=== PATIENT | male | born 1955 | race Caucasian/White ===

== ENCOUNTER → 2016-09-16 | Outpatient (REF) | payer OTHER | LOC: M LABDRAWP 11:24 | PROVIDERS: ATTEND Internal Medicine Cardiovascular Disease | DX: E78.00 Pure hypercholesterolemia, unspecified (principal); I25.10 Atherosclerotic heart disease of native coronary artery without angina pectoris ==

== ENCOUNTER → 2016-10-09 | Day surgery (SDC) | payer OTHER ==
[~2016-10-09] VITALS: Ht 182.9 cm; Wt 170.1 kg
[~2016-10-09] MED LIST: ASPI81TA85 PO; ATOR1TAB18 PO; CARV6.25 PO; CARVedilol 6.25 MG TAB As Ordered ONE; CARVedilol 6.25 MG TAB PO ONE; LIDOCAINE 2% INJ 100 MG/5 ML SDV (FOR ANES.) As Ordered ONE; LR 1,000 ML IV SCH; MEPERIDINE INJ 25 MG/ML VIAL (J2175) IV PRN; METOCLOPRAMIDE INJ 10MG/2ML VIAL (J2765) As Ordered ONE; METOCLOPRAMIDE INJ 10MG/2ML VIAL (J2765) IV PRN; MIDAZOLAM INJ 2 MG/2 ML VIAL (J2250) As Ordered ONE; MORPHINE 4 MG/ML 1ML SYRINGE IV PRN; NORCO, ANEXSIA 5/325MG TABLET (HYDROcodone/ACETAMINOPHEN) PO PRN; ONDANSETRON 4MG/2ML VIAL (J2405) IV PRN; PERCOCET 5MG/325MG TAB PO PRN; PROPOFOL 200 MG/20 ML VIAL As Ordered ONE; ROCURONIUM BROMIDE 50 MG/5 ML VIAL As Ordered ONE; ROPIvacaine 0.5% 30 ML INJECTION (J2795) As Ordered ONE; ROPIvacaine 0.5% 30 ML INJECTION (J2795) XX ONE; SUGAMMADEX SODIUM 500 MG/5 ML VIAL (BRIDION) As Ordered ONE; TYLE500T78 PO; ZETI10TA2 PO; dexameTHASONE 4 MG/ML 1ML VIAL (J1100) As Ordered ONE; fentaNYL 100 MCG/2 ML INJECTION (J3010) IV PRN; fentaNYL 250 MCG/5 ML INJECTION (J3010) As Ordered ONE
[2016-10-09] MEDS: LR 1,000 ML IV SCH ×2 (09:10→09:12)
[2016-10-09 15:15] VITALS: BP 141/74
--- NOTE | 2016-10-09 19:46 | RO ---
DATE OF PROCEDURE: 10/09/2016 PREPROCEDURE DIAGNOSIS: Right knee medial and lateral meniscus tears with degenerative arthritis. POSTPROCEDURE DIAGNOSIS: Right knee medial and lateral meniscus tears with degenerative arthritis. PROCEDURE: 1. Right knee partial medial meniscectomy. 2. Right knee partial lateral meniscectomy. SURGEON: Dr. Misael Bowers MODELING AGENCY MANAGER: ANESTHESIA: General endotracheal anesthetic. COMPLICATIONS: None. SPECIMENS: None. FINDINGS: She had significant unstable tearing especially of the lateral meniscus laterally and anteriorly. In addition, there was significant degenerative tearing of the medial meniscus. There was chondromalacia in the medial compartment and the lateral compartment, grade 2/grade 3, anterior cruciate ligament (ACL) and posterior cruciate ligament (PCL) were intact. There was a lot of fibrotic tissue in the anterior interval and the infrapatellar plica. DESCRIPTION OF PROCEDURE: After antibiotics were given intravenously preoperatively and successful general endotracheal tube anesthetic had been established, tourniquet was placed on the right upper thigh and not inflated. The right lower extremity was prepped and draped in the usual sterile fashion, the leg elevated and after appropriate time out, the tourniquet was inflated and insufflation portal was established superomedially, scope was introduced anterolaterally, working portal anteromedial. Noteworthy that exam under anesthesia revealed marked popping and snapping sensation as I brought the knee into extension. I first inspected the medial compartment. There was a significant degenerative tear with a parrot-beak component along the medial aspect of the medial meniscus and the posterior horn of the medial meniscus appeared essentially absent or it was significantly degenerative and just some frayed tissue remained. I smoothed off that portion of the posterior horn of the medial meniscus and then debrided the parrot-beak type unstable portion of the torn medial meniscus medially. Photographs taken before and afterward. I then placed him in the figure 4 position and explored the lateral compartment. There was a significant amount of tearing of especially the anterior horn of the lateral meniscus, and I debrided that with a 4.0 shaver back to good smooth rim. And then posterior and laterally, there was basically an infolded bucket handle type tear of the lateral meniscus that once I teased it out with a shaver, it was obviously grossly unstable and flapping into the joint, consistent with having symptomatology in the lateral joint line. This was released with a basket punch and the 4.0 shaver back to good smooth rim, photographs taken before and afterward. I then debrided the fibrotic tissue in the front of the ACL and the infrapatellar plica. Finding no other treatable pathology, I copiously irrigated out the joint and then instilled ropivacaine, covered the wounds with Adaptic dry sterile bulky dressing, then the tourniquet was released and he was awakened from general endotracheal tube anesthesia after having tolerated the procedure well, transferred to the recovery room in stable condition. There were no intraoperative complications.
== END | disposition home or self-care (01) ==
LOC: M SDC 08:19
PROVIDERS: ATTEND Orthopaedic Surgery
DX: S83.241A Other tear of medial meniscus, current injury, right knee, initial encounter (principal); S83.211A Bucket-handle tear of medial meniscus, current injury, right knee, initial encounter; M17.0 Bilateral primary osteoarthritis of knee; I25.10 Atherosclerotic heart disease of native coronary artery without angina pectoris; E66.01 Morbid (severe) obesity due to excess calories; E78.00 Pure hypercholesterolemia, unspecified; I25.2 Old myocardial infarction; M54.9 Dorsalgia, unspecified; I10 Essential (primary) hypertension; G89.29 Other chronic pain; M19.031 Primary osteoarthritis, right wrist; M19.032 Primary osteoarthritis, left wrist; Z79.899 Other long term (current) drug therapy; Z79.82 Long term (current) use of aspirin
CPT/HCPCS: 29880; J0690; J1100; J2250; J2765; J2795; J3010

== ENCOUNTER 2016-11-09 08:10 | Emergency (ER) | payer OTHER ==
[~2016-11-09] VITALS: Ht 182.9 cm; Wt 181.4 kg
[~2016-11-09 08:10] MED LIST changes: -CARVedilol 6.25 MG TAB As Ordered ONE; -CARVedilol 6.25 MG TAB PO ONE; -LIDOCAINE 2% INJ 100 MG/5 ML SDV (FOR ANES.) As Ordered ONE; -LR 1,000 ML IV SCH; -MEPERIDINE INJ 25 MG/ML VIAL (J2175) IV PRN; -METOCLOPRAMIDE INJ 10MG/2ML VIAL (J2765) As Ordered ONE; -METOCLOPRAMIDE INJ 10MG/2ML VIAL (J2765) IV PRN; -MIDAZOLAM INJ 2 MG/2 ML VIAL (J2250) As Ordered ONE; -MORPHINE 4 MG/ML 1ML SYRINGE IV PRN; -NORCO, ANEXSIA 5/325MG TABLET (HYDROcodone/ACETAMINOPHEN) PO PRN; -ONDANSETRON 4MG/2ML VIAL (J2405) IV PRN; -PERCOCET 5MG/325MG TAB PO PRN; -PROPOFOL 200 MG/20 ML VIAL As Ordered ONE; -ROCURONIUM BROMIDE 50 MG/5 ML VIAL As Ordered ONE; -ROPIvacaine 0.5% 30 ML INJECTION (J2795) As Ordered ONE; -ROPIvacaine 0.5% 30 ML INJECTION (J2795) XX ONE; -SUGAMMADEX SODIUM 500 MG/5 ML VIAL (BRIDION) As Ordered ONE; -dexameTHASONE 4 MG/ML 1ML VIAL (J1100) As Ordered ONE; -fentaNYL 100 MCG/2 ML INJECTION (J3010) IV PRN; -fentaNYL 250 MCG/5 ML INJECTION (J3010) As Ordered ONE
--- NOTE | 2016-11-09 10:06 | REP ---
CT HEAD WITHOUT CONTRAST: HISTORY: Dizziness. A small area of decreased attenuation is present in the left cerebellum. This represents an old lacunar infarction. There is no intraparenchymal hemorrhage, mass or midline shift. The ventricular system and cortical sulci are dilated consistent with minimal volume loss. There is no extracerebral collection. The visualized sinuses are clear. IMPRESSION: 1. Old left cerebellar lacunar infarction. 2. Minimal volume loss. Signed by Percy Hdz MD 11/09/2016 10:19 A
[2016-11-09] MEDS ORDERED: ONDANSETRON 4MG/2ML VIAL (J2405) IV ONE (10:15)
[2016-11-09] MEDS ORDERED: MECLIZINE 25 MG TABLET PO ONE (10:15)
[2016-11-09 10:41] LABS: BASO % 0.7 % (0.0-1.0); EOS # 0.1 K/mm3 (0.0-0.50); EOS % 1.7 % (0.0-3.0); LARGE UNSTAINED CELL # 0.2 K/mm3 (0.0-0.4); LARGE UNSTAINED CELL % 2.9 % (0.0-4.0); LYMPH # 1.2 K/mm3 (1.5-4.5); LYMPH % 17.3 % (24.0-44.0); MEAN CORPUSCULAR HGB CONC 33.9 g/dl (32.0-36.5); MEAN CORPUSCULAR VOLUME 91.6 fl (80.0-96.0); MONO # 0.4 K/mm3 (0.0-0.8); MONO % 6.2 % (0.0-5.0); NEUTROPHILS % 71.3 % (36.0-66.0); PLATELET COUNT, AUTOMATED 197 k/mm3 (150-450)
--- NOTE | 2016-11-09 10:57 | REP ---
Chest x-ray: Three views. History: Cough, left lower anterior rib pain. Comparison chest x-ray December 14, 2011. Findings: EKG monitoring electrodes and oxygen delivery tubing overlie the chest. Heart is not enlarged. Lungs are well inflated and clear. Pleural angles are sharp. Pulmonary vasculature is not increased. Impression: No active disease. Signed by French Booth MD 11/09/2016 02:29 P
[2016-11-09 11:08] LABS: ALKALINE PHOSPHATASE 67 U/L (45-117); ALT/SGPT 25 U/L (12-78); ANION GAP 7 MEQ/L (8-16); AST/SGOT 21 U/L (15-37); BILIRUBIN,DIRECT < 0.1 MG/DL (0.0-0.2); BILIRUBIN,TOTAL 0.4 MG/DL (0.2-1.0); BLOOD UREA NITROGEN 16 MG/DL (7-18); CALCIUM LEVEL 8.4 MG/DL (8.8-10.2); CARBON DIOXIDE LEVEL 29 MEQ/L (21-32); CHLORIDE LEVEL 106 MEQ/L (98-107); CREATININE FOR GFR 0.91 MG/DL (0.70-1.30); GLOMERULAR FILTRATION RATE > 60.0 (>49); GLUCOSE, FASTING 105 MG/DL (80-110); SODIUM LEVEL 142 MEQ/L (136-145); TOTAL PROTEIN 7.3 GM/DL (6.4-8.2)
[2016-11-09] MEDS ORDERED: LORazepam 2 MG/ML VIAL (J2060) IV STA (12:31)
[2016-11-09] MEDS ORDERED: NS 1,000 ML IV ONE (12:45)
[2016-11-09] MEDS ORDERED: FLON1SPR (14:44)
[2016-11-09] MEDS ORDERED: ZOFR4TAB3 PO (14:44)
[2016-11-09] MEDS ORDERED: MECL-68 PO (14:44)
--- NOTE | 2016-11-09 14:48 | REP ---
Duplex extremity venous ultrasound: Bilateral lower extremity. History: Bilateral lower extremity swelling. Question DVT. Findings: The deep veins are anechoic and fully compressible from the groin to the popliteal fossa in the right and left lower extremity. Color flow imaging is homogeneous. Spectral Doppler interrogation demonstrates intact respiratory variation in flow and normal manual augmentation of flow. There is no evidence of deep vein thrombosis. Impression: Negative bilateral lower extremity duplex venous ultrasound. No evidence of deep vein thrombosis. Signed by French Booth MD 11/09/2016 02:40 P
[2016-11-09 15:17] VITALS: BP 136/84
--- NOTE | 2016-11-09 20:41 | ECGEPIP ---
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 Order Number: [id number] Reading MD: Pedro Fontana Measurements Intervals [place] Rate: 66 P: 3 IN: 197 QRS: -52 QRSD: 99 T: 58 QT: 421 QTc: 443 Interpretive Statements SINUS RHYTHM PATTERN CONSISTENT WITH PULMONARY DISEASE LEFT ANTERIOR FASCICULAR BLOCK INFERIOR MYOCARDIAL INFARCTION, PROBABLY OLD NO PRIORS Electronically Signed On 11-09-2016 20:41:31 EST by Pedro Fontana
== END 2016-11-09 15:19 | disposition home or self-care (01) ==
LOC: M ED 09:25
DX: H81.10 Benign paroxysmal vertigo, unspecified ear (principal); J06.9 Acute upper respiratory infection, unspecified; R60.0 Localized edema; I10 Essential (primary) hypertension; Z79.899 Other long term (current) drug therapy; Z79.82 Long term (current) use of aspirin

== ENCOUNTER 2017-02-10 15:38 | Emergency (ER) | payer OTHER ==
[~2017-02-10] VITALS: Ht 182.9 cm; Wt 170.1 kg
[~2017-02-10 15:38] MED LIST changes: +FLON1SPR; +MECL-68 PO; +ZOFR4TAB3 PO
[2017-02-10] MEDS ORDERED: methylPREDNISolone INJ 125 MG/2 ML VIAL (J2930) IV ONE (16:45)
[2017-02-10] MEDS ORDERED: methylPREDNISolone INJ 125 MG/2 ML VIAL (J2930) IM ONE (17:00)
[2017-02-10] MEDS ORDERED: PRED50TA PO (17:18)
[2017-02-10] MEDS ORDERED: VALI5TAB PO (17:18)
[2017-02-10 17:29] VITALS: BP 150/67
== END 2017-02-10 18:00 | disposition home or self-care (01) ==
LOC: M ED 16:56
DX: M54.41 Lumbago with sciatica, right side (principal); I10 Essential (primary) hypertension; E78.00 Pure hypercholesterolemia, unspecified; Z79.82 Long term (current) use of aspirin; Z79.899 Other long term (current) drug therapy
CPT/HCPCS: 96372; 99282; J2930

== ENCOUNTER → 2017-11-11 | Outpatient (REF) | payer BC ==
[2017-11-11 13:41] LABS: HEMATOCRIT 46.8 % (42.0-52.0); HEMOGLOBIN 15.5 g/dl (14.0-18.0); MEAN CORPUSCULAR HEMOGLOBIN 30.8 pg (27.0-33.0); MEAN CORPUSCULAR HGB CONC 33.1 g/dl (32.0-36.5); MEAN CORPUSCULAR VOLUME 92.9 fl (80.0-96.0); PLATELET COUNT, AUTOMATED 198 10^3/uL (150-450); RED BLOOD COUNT 5.04 10^6/uL (4.30-6.10); RED CELL DISTRIBUTION WIDTH 13.2 % (11.5-14.5); WHITE BLOOD COUNT 6.5 10^3/uL (4.0-10.0)
[2017-11-11 14:17] LABS: ERYTHROCYTE SEDIMENTATION RATE 126 mm/hr (0-20)
[2017-11-11 14:30] LABS: ALBUMIN 3.3 GM/DL (3.2-5.2); ALBUMIN/GLOBULIN RATIO 0.83 (1.00-1.93); ALKALINE PHOSPHATASE 62 U/L (45-117); ALT/SGPT 30 U/L (12-78); ANION GAP 8 MEQ/L (8-16); AST/SGOT 30 U/L (7-37); BILIRUBIN,TOTAL 0.4 MG/DL (0.2-1.0); BLOOD UREA NITROGEN 17 MG/DL (7-18); CALCIUM LEVEL 8.8 MG/DL (8.8-10.2); CARBON DIOXIDE LEVEL 27 MEQ/L (21-32); CHLORIDE LEVEL 106 MEQ/L (98-107); CHOLESTEROL LEVEL 190 MG/DL (<200); CHOLESTEROL RISK RATIO 3.275 (<5); CREATININE FOR GFR 0.88 MG/DL (0.70-1.30); FREE T4 0.85 NG/DL (0.76-1.46); GLOMERULAR FILTRATION RATE > 60.0 (>49); GLUCOSE, FASTING 86 MG/DL (70-100); HDL CHOLESTEROL 58 MG/DL (>40); LDL CHOLESTEROL 110.4 MG/DL (<100); NON-HDL-C 132 MG/DL; POTASSIUM SERUM 4.2 MEQ/L (3.5-5.1); SODIUM LEVEL 141 MEQ/L (136-145); TOTAL PROTEIN 7.3 GM/DL (6.4-8.2); TRIGLYCERIDES LEVEL 108 MG/DL (<150)
== END ==
LOC: M SFHCPLAZ 10:58
DX: E78.00 Pure hypercholesterolemia, unspecified (principal); M19.071 Primary osteoarthritis, right ankle and foot; E66.01 Morbid (severe) obesity due to excess calories
CPT/HCPCS: 84443

== ENCOUNTER → 2017-11-11 | Outpatient (CLI) | payer BC | LOC: M SMT 11:24 | DX: M79.671 Pain in right foot (principal) | CPT/HCPCS: 73630 ==

== ENCOUNTER → 2017-11-30 | Outpatient (REF) | payer BC ==
[2017-11-30 16:08] LABS: C REACTIVE PROTEIN QUANTITATIV 0.66 MG/DL (0.00-0.30)
[2017-11-30 16:08] LABS: URIC ACID 5.2 MG/DL (3.5-7.2)
[2017-11-30 17:12] LABS: ERYTHROCYTE SEDIMENTATION RATE 7 mm/hr (0-20)
== END ==
LOC: M SFHCPLAZ 13:34
DX: R70.0 Elevated erythrocyte sedimentation rate (principal)
CPT/HCPCS: 84550

== ENCOUNTER → 2017-12-20 | Outpatient (CLI) | payer BC | LOC: M SLEEP 18:59 | DX: G47.33 Obstructive sleep apnea (adult) (pediatric) (principal) | CPT/HCPCS: 95810 ==

== ENCOUNTER → 2018-01-17 | Outpatient (CLI) | payer BC | LOC: M SLEEP 19:45 | DX: G47.33 Obstructive sleep apnea (adult) (pediatric) (principal) | CPT/HCPCS: 95811 ==

== ENCOUNTER 2018-03-29 15:21 | Emergency (ER) | payer BC ==
[2018-03-29 16:34] LABS: HEMATOCRIT 42.6 % (42.0-52.0); HEMOGLOBIN 14.2 g/dl (13.5-17.5); MEAN CORPUSCULAR HEMOGLOBIN 30.9 pg (27.0-33.0); MEAN CORPUSCULAR HGB CONC 33.3 g/dl (32.0-36.5); MEAN CORPUSCULAR VOLUME 92.8 fl (80.0-96.0); PLATELET COUNT, AUTOMATED 189 10^3/uL (150-450); RED BLOOD COUNT 4.59 10^6/uL (4.30-6.10); RED CELL DISTRIBUTION WIDTH 13.3 % (11.5-14.5); WHITE BLOOD COUNT 11.2 10^3/uL (4.0-10.0)
[2018-03-29] MEDS: MECLIZINE 25 MG TABLET PO (16:39)
[2018-03-29] MEDS: NS 1,000 ML IV (16:39)
[2018-03-29] MEDS: LORazepam 2 MG/ML VIAL (J2060) IV (16:39)
[2018-03-29 16:42] LABS: ANION GAP 9 MEQ/L (8-16); BLOOD UREA NITROGEN 25 MG/DL (7-18); CALCIUM LEVEL 7.9 MG/DL (8.8-10.2); CARBON DIOXIDE LEVEL 25 MEQ/L (21-32); CHLORIDE LEVEL 109 MEQ/L (98-107); CREATININE FOR GFR 0.74 MG/DL (0.70-1.30); GLOMERULAR FILTRATION RATE > 60.0 (>49); GLUCOSE, FASTING 86 MG/DL (70-100); POTASSIUM SERUM 3.6 MEQ/L (3.5-5.1); SODIUM LEVEL 143 MEQ/L (136-145)
[2018-03-29] MEDS: KETOROLAC 30 MG/ML VIAL (J1885) IV (17:45)
== END 2018-03-29 19:52 | disposition home or self-care (01) ==
LOC: M ED 15:21
DX: R42 Dizziness and giddiness (principal); I25.10 Atherosclerotic heart disease of native coronary artery without angina pectoris; E78.5 Hyperlipidemia, unspecified; G47.33 Obstructive sleep apnea (adult) (pediatric)
CPT/HCPCS: J2060

== ENCOUNTER → 2018-06-01 | Outpatient (REF) | payer BC ==
[2018-06-01 13:22] LABS: HEMATOCRIT 45.9 % (42.0-52.0); HEMOGLOBIN 15.3 g/dl (13.5-17.5); MEAN CORPUSCULAR HGB CONC 33.3 g/dl (32.0-36.5); MEAN CORPUSCULAR VOLUME 93.1 fl (80.0-96.0); PLATELET COUNT, AUTOMATED 189 10^3/uL (150-450); RED BLOOD COUNT 4.93 10^6/uL (4.30-6.10); RED CELL DISTRIBUTION WIDTH 13.2 % (11.5-14.5); WHITE BLOOD COUNT 5.9 10^3/uL (4.0-10.0)
[2018-06-01 13:57] LABS: ERYTHROCYTE SEDIMENTATION RATE 31 mm/hr (0-20)
[2018-06-01 14:56] LABS: ALBUMIN 3.5 GM/DL (3.2-5.2); ALBUMIN/GLOBULIN RATIO 0.95 (1.00-1.93); ALKALINE PHOSPHATASE 57 U/L (45-117); ALT/SGPT 25 U/L (12-78); ANION GAP 11 MEQ/L (8-16); AST/SGOT 26 U/L (7-37); BILIRUBIN,TOTAL 0.7 MG/DL (0.2-1.0); BLOOD UREA NITROGEN 18 MG/DL (7-18); CALCIUM LEVEL 8.9 MG/DL (8.8-10.2); CARBON DIOXIDE LEVEL 26 MEQ/L (21-32); CHLORIDE LEVEL 107 MEQ/L (98-107); CREATININE FOR GFR 0.82 MG/DL (0.70-1.30); FREE T4 0.87 NG/DL (0.76-1.46); GLOMERULAR FILTRATION RATE > 60.0 (>49); GLUCOSE, FASTING 88 MG/DL (70-100); SODIUM LEVEL 144 MEQ/L (136-145); TOTAL 25(OH) VITAMIN D 18.4 NG/ML (30.0-100.0); TOTAL PROTEIN 7.2 GM/DL (6.4-8.2)
== END ==
LOC: M SFHCPLAZ 11:31
DX: R53.83 Other fatigue (principal)

== ENCOUNTER → 2018-12-06 | Outpatient (REF) | payer OTHER, MEDICAID ==
[~2018-12-06] MED LIST changes: -ATOR1TAB18 PO; +ATOR80TA59 PO; +CYCL10TA PO; +PRED50TA PO; +VALI5TAB PO; -ZETI10TA2 PO; +ZETI10TA30 PO; +ZOFR4TAB14 PO; -ZOFR4TAB3 PO
[2018-12-06 14:11] LABS: ALBUMIN 3.1 GM/DL (3.2-5.2); ALT/SGPT 41 U/L (12-78); BILIRUBIN,TOTAL 0.7 MG/DL (0.2-1.0); BLOOD UREA NITROGEN 14 MG/DL (7-18); CALCIUM LEVEL 8.3 MG/DL (8.8-10.2); CARBON DIOXIDE LEVEL 29 MEQ/L (21-32); CHLORIDE LEVEL 106 MEQ/L (98-107); CHOLESTEROL LEVEL 160 MG/DL (<200); CHOLESTEROL RISK RATIO 3.265 (<5); CREATININE FOR GFR 0.87 MG/DL (0.70-1.30); GLOMERULAR FILTRATION RATE > 60.0 (>49); GLUCOSE, FASTING 93 MG/DL (70-100); HDL CHOLESTEROL 49 MG/DL (>40); LDL CHOLESTEROL 89 MG/DL (<100); NON-HDL-C 111 MG/DL; POTASSIUM SERUM 4.3 MEQ/L (3.5-5.1); SODIUM LEVEL 140 MEQ/L (136-145); TOTAL PROTEIN 6.6 GM/DL (6.4-8.2); TRIGLYCERIDES LEVEL 108 MG/DL (<150)
[2018-12-06 14:17] LABS: TOTAL 25(OH) VITAMIN D 21.3 NG/ML (30.0-100.0)
== END ==
LOC: M SFHCPLAZ 11:17
PROVIDERS: ATTEND Nurse Practitioner Family
DX: E78.00 Pure hypercholesterolemia, unspecified (principal); E55.9 Vitamin D deficiency, unspecified

== ENCOUNTER → 2019-06-09 | Outpatient (REF) | payer OTHER ==
[~2019-06-09] MED LIST changes: +ZETI10TA16 PO; -ZETI10TA30 PO
[2019-06-09 13:44] LABS: ALBUMIN 3.3 GM/DL (3.2-5.2); ALT/SGPT 28 U/L (12-78); BILIRUBIN,TOTAL 0.6 MG/DL (0.2-1.0); BLOOD UREA NITROGEN 17 MG/DL (7-18); CALCIUM LEVEL 9.2 MG/DL (8.8-10.2); CARBON DIOXIDE LEVEL 30 MEQ/L (21-32); CHLORIDE LEVEL 106 MEQ/L (98-107); CREATININE FOR GFR 0.87 MG/DL (0.70-1.30); GLOMERULAR FILTRATION RATE > 60.0 (>49); GLUCOSE, FASTING 112 MG/DL (70-100); SODIUM LEVEL 142 MEQ/L (136-145); TOTAL PROTEIN 7.2 GM/DL (6.4-8.2)
== END ==
LOC: M SFHCPLAZ 11:04
PROVIDERS: ATTEND Nurse Practitioner Family
DX: I25.10 Atherosclerotic heart disease of native coronary artery without angina pectoris (principal); E55.9 Vitamin D deficiency, unspecified

== ENCOUNTER → 2019-06-10 | Outpatient (CLI) | payer OTHER ==
--- NOTE | 2019-06-14 10:13 | SLEEPCENT ---
DATE OF STUDY: 06/10/2019 ORDERING PROVIDER: HUSSAIN Larson Nocturnal polysomnography was performed for the titration of pressure therapy in this patient with obstructive sleep apnea syndrome. For testing, a [employer] full-face mask of large size was used. 14 cm of water pressure were applied to the circuit, and the lights were extinguished. 7 hours of data were reviewed. There were 264 minutes of sleep identified. Sleep latency was prolonged at 40 minutes. Rapid eye movement (REM) latency was short at 58 minutes. Sleep architecture was good with three or four REM cycles. There was a period of awake in the midportion of the study, resulting in reduced sleep efficiency of 63.5%. The patient's electrocardiogram showed a sinus rhythm with an average heart rate of 68 beats per minute. Electroencephalogram (EEG) showed some mild artifact. No focal events were seen, and there were normal waveforms for awake and sleep. Respiratory events were best palliated with continuous positive airway pressure (CPAP) at a pressure of +15. There was some limb activity late in the study, but limb movement arousals were few. IMPRESSION: Obstructive sleep apnea syndrome (G47.33). RECOMMENDATION: Nightly use of pressure therapy, 15 cm of water.
== END ==
LOC: M SLEEP 20:00
PROVIDERS: ATTEND Physician Assistant
DX: G47.33 Obstructive sleep apnea (adult) (pediatric) (principal)

== ENCOUNTER → 2019-11-16 | Outpatient (REF) | payer OTHER ==
[~2019-11-16] MED LIST changes: -MECL-68 PO; +MECL1TAB31 PO; +OSEL75CA2 PO
[2019-11-16 19:51] LABS: INFLUENZA A AMPLIFICATION NEGATIVE (NEGATIVE); INFLUENZA B AMPLIFICATION NEGATIVE (NEGATIVE)
== END ==
LOC: M LAB REF 18:17
PROVIDERS: ATTEND Physician Assistant
DX: R50.9 Fever, unspecified (principal)

== ENCOUNTER 2019-11-18 19:10 | Inpatient (IN) | payer OTHER, SELFPAY ==
[~2019-11-18] VITALS: Ht 182.9 cm; Wt 200.5 kg
[~2019-11-18 19:10] MED LIST changes: -OSEL75CA2 PO
[2019-11-18] MEDS ORDERED: ACETAMINOPHEN 325 MG TAB PO ONE (20:15)
[2019-11-18] MEDS ORDERED: NS 1,000 ML IV ONE (20:15)
[2019-11-18 20:35] LABS: BASO # 0.1 10^3/uL (0.0-0.2); BASO % 0.3 % (0.0-1.0); HEMATOCRIT 43.7 % (42.0-52.0); HEMOGLOBIN 15.1 g/dl (13.5-17.5); LYMPH # 0.9 10^3/uL (1.5-5.0); LYMPH % 4.2 % (24.0-44.0); MEAN CORPUSCULAR HEMOGLOBIN 31.7 pg (27.0-33.0); MEAN CORPUSCULAR HGB CONC 34.6 g/dl (32.0-36.5); MEAN CORPUSCULAR VOLUME 91.6 fl (80.0-96.0); MONO # 1.6 10^3/uL (0.0-0.8); MONO % 8.1 % (0.0-5.0); NEUTROPHILS # 17.3 10^3/uL (1.5-8.5); NEUTROPHILS % 85.9 % (36.0-66.0); PLATELET COUNT, AUTOMATED 183 10^3/uL (150-450); RED BLOOD COUNT 4.77 10^6/uL (4.30-6.10); WHITE BLOOD COUNT 20.2 10^3/uL (4.0-10.0)
--- NOTE | 2019-11-18 20:52 | REPVR ---
PROCEDURE INFORMATION: Exam: US Scrotum Exam date and time: 11/18/2019 8:32 PM Age: 64 years old Clinical indication: Scrotum pain; Additional info: Testicular swelling/pain TECHNIQUE: Imaging protocol: Real-time ultrasound of the scrotum and contents with color Doppler and image documentation. COMPARISON: No relevant prior studies available. FINDINGS: Right testicle: The right testis measures 4.2 x 3.7 x 2.9 cm. Preservation of blood flow within the right testis. At the periphery of the right testis, there is a small hypoechoic intratesticular cyst or tunica albuginea cyst measuring 0.3 x 0.2 x 0.2 cm. There is no increased flow associated with this finding. Left testicle: The left testis measures 4.2 x 3.0 x 3.9 cm. There is preservation of blood flow within the left testis. No left intratesticular mass. Several tiny hyperechoic foci are identified within the left testis, consistent with microlithiasis. Epididymides: Within the right epididymis, there is a 0.6 x 0.6 x 0.4 cm hypoechoic cyst. There is a small hypoechoic cyst adjacent to the left epididymis measuring 0.3 x 0.3 x 0.1 cm. The right epididymis measures 0.7 cm in diameter. The left epididymis measures 0.7 cm in diameter. Scrotum: Scrotal thickening/swelling is identified, most significant on the right side. This measures 2.2 cm in thickness on the right side, and 1.6 cm in thickness on the left side. IMPRESSION: 1. Scrotal thickening/swelling is identified, most significant on the right side. This is likely infectious or inflammatory in the absence of trauma. Clinical correlation recommended. 2. Several tiny hyperechoic foci are identified within the left testis, consistent with microlithiasis. Follow-up ultrasonography is recommended due to the association of microlithiasis with testicular neoplasm. 3. Bilateral epididymal cysts. 4. At the periphery of the right testis, there is a small hypoechoic intratesticular cyst or tunica albuginea cyst measuring 0.3 x 0.2 x 0.2 cm. Electronically signed by: Pedro Pappas On 11/18/2019 20:52:34 PM
[2019-11-18 20:54] LABS: ALBUMIN 2.5 GM/DL (3.2-5.2); ALT/SGPT 15 U/L (12-78); BLOOD UREA NITROGEN 20 MG/DL (7-18); CALCIUM LEVEL 8.4 MG/DL (8.8-10.2); CARBON DIOXIDE LEVEL 26 MEQ/L (21-32); CHLORIDE LEVEL 93 MEQ/L (98-107); CREATININE FOR GFR 1.26 MG/DL (0.70-1.30); GLOMERULAR FILTRATION RATE > 60.0 (>49); GLUCOSE, FASTING 106 MG/DL (70-100); POTASSIUM SERUM 3.7 MEQ/L (3.5-5.1); SODIUM LEVEL 129 MEQ/L (136-145)
[2019-11-18 20:57] LABS: ERYTHROCYTE SEDIMENTATION RATE 66 mm/hr (0-20)
[2019-11-18] MEDS ORDERED: NS IV ONE (21:00)
[2019-11-18] MEDS ORDERED: PIPERACILLIN/TAZOBACTAM SOD 4.5 GM in D5W MINI-BAG PLUS 50 ML IV ONE (21:00)
[2019-11-18] MEDS ORDERED: ISOVUE-370 76% 100ML VIAL (Q9967) As Ordered ONE (21:07)
[2019-11-18] MEDS ORDERED: VANCOMYCIN HCL 2,000 MG in D5W 500 ML IV ONE (21:45)
[2019-11-18] MEDS ORDERED: IBUPROFEN 800 MG TAB PO ONE (21:45)
--- NOTE | 2019-11-18 22:03 | REPVR ---
PROCEDURE INFORMATION: Exam: CT Abdomen And Pelvis With Contrast Exam date and time: 11/18/2019 9:19 PM Age: 64 years old Clinical indication: Mass, lump, or swelling; Lower; Abdominal pain; Localized; Additional info: Pelvic swelling/pain; R/O abscess TECHNIQUE: Imaging protocol: Computed tomography of the abdomen and pelvis with intravenous contrast. Radiation optimization: All CT scans at this facility use at least one of these dose optimization techniques: automated exposure control; mA and/or kV adjustment per patient size (includes targeted exams where dose is matched to clinical indication); or iterative reconstruction. Contrast material: ISOVUE 370; Contrast volume: 100 ml; Contrast route: IV; COMPARISON: No relevant prior studies available. FINDINGS: Liver: There is hypodense fatty infiltration of the liver. Gallbladder and bile ducts: Dependent hyperdensity is identified within the gallbladder, likely representing gallstones. Pancreas: There is fatty infiltration of the pancreas, consistent with atrophy. Spleen: A few splenules are identified. No splenomegaly. Adrenals: No mass. Kidneys and ureters: Unremarkable as visualized. No hydronephrosis. Stomach and bowel: Evaluation of bowel is limited by the absence of oral contrast. A small umbilical hernia is identified. A small portion of small bowel extends into this hernia. No bowel obstruction. Appendix: No evidence of appendicitis. Intraperitoneal space: No free air. No significant fluid collection. Vasculature: There is atherosclerotic calcification of the abdominal aorta and iliac arteries. A retroaortic left renal vein is visualized. Lymph nodes: Inguinal lymph nodes are identified bilaterally, some which are enlarged. A left inguinal lymph node measures 3.2 cm in length. A few mildly enlarged intrapelvic lymph nodes are also identified. Bladder: Unremarkable as visualized. Reproductive: See Soft Tissues Finding. Bones/joints: Grade 1/2 anterolisthesis of L5 on S1. Hypertrophic degenerative changes are noted within the spine. Soft tissues: There is significant soft tissue swelling of the perineum with multiple foci of gas. These findings extend to the left inguinal region. Scrotal swelling is also visualized. 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 IMPRESSION: 1. There is significant soft tissue swelling of the perineum with multiple foci of gas. These findings extend to the left inguinal region. Scrotal swelling is also visualized. 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 2. Fatty infiltration of the liver. 3. Cholelithiasis. 4. Small umbilical hernia containing small bowel. 5. Inguinal lymph nodes are identified bilaterally, some which are enlarged. A few mildly enlarged intrapelvic lymph nodes are also identified. 6. Grade 1/2 anterolisthesis of L5 on S1. 7. Additional findings described above. Electronically signed by: Pedro Pappas On 11/18/2019 22:03:01 PM
[2019-11-18] MEDS ORDERED: CLINDAMYCIN 900 MG in IV 1 EA IV ONE (22:15)
--- NOTE | 2019-11-18 22:33 | HPEPDOC ---
[facility] Medical History & Physical Date of Admission Nov 18, 2019 Date of Service: Nov 18, 2019 Primary Care Physician: HOLLY VELEZ NP Attending Physician: SHOBHA AVILA MD History and Physical CHIEF COMPLAINT: Scrotal pain and swelling HISTORY OF PRESENT ILLNESS: Patient is a 64-year-old male, past medical history significant for coronary artery disease with previous LA, hypertension, hyperlipidemia, SERA in the setting of morbid obesity, who presents to the emergency department via EMS with a chief complaint of scrotal swelling and pain. Patient states that his symptoms began on 11/14/2019 when he noted having a fever with associated chills. That same day, patient presented to urgent care and was diagnosed with the flu and started on Tamiflu.. He was sent home with supportive care. He states that his fevers persisted. He then presented to his primary care provider on 11/17/2019. At that time, he was diagnosed with intertriginous candidiasis and given nystatin cream. Throughout last evening in the morning of presentation, patient continued to experience intermittent fevers with new onset scrotal and pelvic floor pain. He states that his examine the area and found his scrotum to be enlarged, hot, erythematous and tender to the touch. Given this, the patient contacted EMS for transport to the emergency department. In the ED, patient was found to have a temperature of 100.7. Pulse of 100, respiratory rate of 20. His blood pressure is 141/65 and he was saturating at 97% on room air. CBC demonstrated a leukocytosis of 20.2. CMP significant for sodium of 129, BUN/Cr of 20/1.26. Elevated bilirubin of 2.0. CRP of 18.1. Lactic acid of 4.4. Patient was given Tylenol for his fever. He received a liter bolus and was started on empiric antibiotic therapy with clindamycin and vancomycin. An ultrasound of his scrotum was performed. Follow-up abdomen/pelvis CT was consistent with a necrotizing infection/Dulce's gangrene. Urology and surgery was consulted. Urology saw the patient while in the emergency department and decided the patient would need urgent surgical intervention. This was team was consulted to admit the patient for medical management following surgery. 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 Illicit drug use: Denies illicit drug use including IV drugs and marijuana FAMILY HISTORY: Father: , 55 years old, [place], diabetes, hypertension, alcohol abuse and liver failure Mother: Alive, is not in contact Siblings: One brother with hypertension Children: Son, healthy ALLERGIES: No known allergies REVIEW OF SYSTEMS: CONSTITUTIONAL: Patient reports intermittent fevers, Tmax of 102 F since evening of 11/14/19. Reports associated chills and night sweats. Patient also complaining of decreased appetite for the same duration. No appreciable changes in weight HEENT: Denies any recent headache, changes in vision, changes in hearing, difficulty swallowing CARDIOVASCULAR: Denies any chest pain, palpitations or an appropriate tachycardia RESPIRATORY: No recent cough or wheeze. Denies any shortness of breath GASTROINTESTINAL: Reports generalized abdominal discomfort, more so in the right upper quadrant. Patient has not had an appetite for the last couple of days. Reports 5 day history of diarrhea, 1-2 times daily GENITOURINARY: Denies hematuria or dysuria SKIN: Scrotal and perineal swelling, erythema, no obvious blistering MUSCULOSKELETAL: Denies any muscle aches or pains, no joint pain. NEUROLOGICAL: Denies any numbness or tingling. Denies any new onset weakness. No dysarthria. Denies any changes in concentration PSYCHIATRIC: Denies any depression or anxious symptoms. HEMATOLOGIC/LYMPHATIC: No frequent or easy bruising HOME MEDICATIONS: Please see below. PHYSICAL EXAMINATION: VITAL SIGNS: Temperature 99.6, pulse 86, respiratory rate 18, blood pressure 120/50 (73), pulse oximetry 94 % on room air. GENERAL APPEARANCE: Patient is alert and oriented, in visible pain/discomfort. Able to answer questions appropriately, participate in examination HEENT: Normocephalic, atraumatic, EOMI, PERRLA, sclera nonicteric, poor oral hygiene with absent front teeth. Oral mucosa is pink and moist. CARDIOVASCULAR: Regular rate and rhythm, no murmurs appreciated, examination limited by body habitus RESPIRATORY: Fair air movement, no wheezes rales or rhonchi, examination limited by body habitus ABDOMEN: Right upper quadrant pain with deep palpation. Otherwise nontender, nondistended. Bowel sounds active throughout. Examination limited by body habitus. MUSCULOSKELETAL: No joint pain or effusions : EXTREMITIES: 1+ pitting edema in his lower extremities bilaterally. No calf tenderness bilaterally. Radial and posterior tibial pulses 2+ bilaterally NEUROLOGICAL: Alert and oriented 3, strength in upper and lower extremities 5 out of 5 bilaterally. No focal neurologic deficits noted. PSYCHIATRIC: Mood and affect are appropriate given current medical condition LABORATORY DATA: See below. IMAGING: Scrotal ultrasound (11/18/2019): Scrotal thickening/swelling is identified, most significant on the right side. This is likely infectious or inflammatory in the absence of trauma. Several tiny hyperechoic foci are identified within the left testes, consistent with microlithiasis. Follow-up ultrasonography is recommended due to the association of microlithiasis with testicular neoplasm. Bilateral epididymal cysts. At the periphery of the right testes, there is a small hypoechoic intratesticular cyst or tunica albuginea cyst measuring 0.30.20.[address] abdomen pelvis (11/18/2019): There is significant soft tissue swelling of the perineum with multiple foci of gas. These findings extend to the left inguinal region. Scrotal swelling is also visualized. 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 Fatty infiltration of the liver. Cholelithiasis. Small umbilical hernia containing small bowel. Inguinal lymph nodes are identified bilaterally, some of which are enlarged. A few mildly enlarged intra-pelvic lymph nodes also identified. Grade 1/2 anterior listhesis of L5 on S1. MICROBIOLOGY: Blood cultures (11/18/2019): Pending ASSESSMENT: Patient is a 64-year-old male, past medical history significant for CAD with prior LA, hyperlipidemia, SERA, hypertension and morbid obesity who presented to emergency department the evening of 11/18/2019 with a chief complaint of 1.5 day history of scrotal pain and swelling. At presentation, patient was found to be febrile with a significant leukocytosis. CT imaging consistent with necrotizing pelvic infection. Urology and surgery consulted and will bring bring the patient to the operating room for immediate surgical intervention. Thereafter, patient will be admitted to the ICU for management of his related sepsis. 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 Source of likely infection identified. Urology and surgery have been consulted. Patient to be brought immediately to the OR for surgical debridement. Continue with broad-spectrum coverage with clindamycin and Zosyn, tailored via culture results. Patient started on lactated Ringer's at 150 ml/hr Blood cultures pending Repeat lactic acid, blood gas Fentanyl for pain control Vitals every 4hr #Microlithiasis of left testes Identified on ultrasound examination. Follow-up ultrasonography is recommended due to association of microlithiasis with testicular neoplasm. #Hypertension Continue patient's home carvedilol following surgery #Hyperlipidemia / Chronic CAD Continue home statin following surgery & resume ASA tomorrow #Obesity Significantly complicating care DVT PROPHYLAXIS: Teds and sequentials, will require lovenox post-op. DISPOSITON: Anticipate greater than two midnight's Vital Signs Vital Signs Date Time Temp Pulse Resp B/P (MAP) Pulse Ox O2 Delivery O2 Flow Rate FiO2 11/18/19 22:20 100.0 88 18 115/52 (73) 100 Room Air Laboratory Data Labs 24H Laboratory Tests 2 11/18/19 20:16: Immature Granulocyte % (Auto) 1.5, Neutrophils (%) (Auto) 85.9H, Lymphocytes (%) (Auto) 4.2L, Monocytes (%) (Auto) 8.1H, Eosinophils (%) (Auto) 0.0, Basophils (%) (Auto) 0.3, Neutrophils # (Auto) 17.3H, Lymphocytes # (Auto) 0.9L, Monocytes # (Auto) 1.6H, Eosinophils # (Auto) 0.0, Basophils # (Auto) 0.1, Nucleated Red Blood Cells % (auto) 0.0, Erythrocyte Sedimentation Rate 66H, Anion Gap 10, Glomerular Filtration Rate > 60.0, Lactic Acid Level 4.4*H, Calcium Level 8.4L, Total Bilirubin 2.0H, Direct Bilirubin 1.0H, Aspartate Amino Transf (AST/SGOT) 23, Alanine Aminotransferase (ALT/SGPT) 15, Alkaline Phosphatase 91, C-Reactive Protein, Quantitative 18.10H, Total Protein 7.0, Albumin 2.5L, Albumin/Globulin Ratio 0.56L CBC/BMP Laboratory Tests 11/18/19 20:16 Microbiology Microbiology 11/18/19 Blood Culture, Received Pending 11/18/19 Blood Culture, Received Pending Home Medications Scheduled Aspirin (Aspir 81) 81 Mg Tab, 81 MG PO DAILY Atorvastatin Calcium (Atorvastatin Calcium) 80 Mg Tab, 80 MG PO DAILY Carvedilol (Carvedilol) 6.25 Mg Tab, 6.25 MG PO BID Oseltamivir Phosphate (Oseltamivir Phosphate) 75 Mg Capsule, 75 MG PO BID ORDERED 11/16/2019 Allergies Coded Allergies: No Known Allergies (Unverified , 11/18/19) A-FIB/CHADSVASC A-FIB History Current/History of A-Fib/PAF?: No GME ATTESTATION GME ATTESTATION My faculty preceptor for this patient encounter was physically present during the encounter and was fully available. All aspects of the patient interview, examination, medical decision making process, and medical care plan development were reviewed and approved by the faculty preceptor. The faculty preceptor is aware and concurs with the plan as stated in the body of this note and will attest to such by his/her cosignature. 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 - we will c/w clindamycin and zosyn pending cx results; the day time team can f/u w Rodrick Brown and Lio on when it is safe to start lovenox Rest per 's H&P. VY SIMEON DO Nov 18, 2019 22:33 SHOBHA AVILA MD Nov 18, 2019 22:56
[2019-11-18] MEDS ORDERED: LR 1,000 ML IV SCH (23:00)
[2019-11-18] MEDS ORDERED: OSEL75CA2 PO (23:17)
[2019-11-19] VITALS (10 sets, daily range): BP systolic 114–139; BP diastolic 63–82
[2019-11-19] MEDS ORDERED: ePHEDrine SULFATE 25 MG/5 ML(5MG/ML) SYRINGE As Ordered ONE (00:04)
[2019-11-19] MEDS ORDERED: LIDOCAINE 2% INJ 100 MG/5 ML SDV (FOR ANES.) As Ordered ONE (00:04)
[2019-11-19] MEDS ORDERED: fentaNYL 100 MCG/2 ML INJECTION (J3010) As Ordered ONE (00:04)
[2019-11-19] MEDS ORDERED: dexameTHASONE 4 MG/ML 1ML VIAL (J1100) As Ordered ONE (00:04)
[2019-11-19] MEDS ORDERED: PHENYLephrine HCL 500 MCG/5 ML (100MCG/ML) SYRINGE (J2370) As Ordered ONE (00:04)
[2019-11-19] MEDS ORDERED: VASOPRESSIN INJ 20 UNITS/ML VIAL As Ordered ONE (00:04)
[2019-11-19] MEDS ORDERED: ROCURONIUM BROMIDE 50 MG/5 ML VIAL As Ordered ONE (00:04)
[2019-11-19] MEDS ORDERED: METOCLOPRAMIDE INJ 10MG/2ML VIAL (J2765) As Ordered ONE (00:04)
[2019-11-19] MEDS ORDERED: propofoL 200 MG/20 ML VIAL As Ordered ONE (00:04)
[2019-11-19] MEDS ORDERED: MIDAZOLAM INJ 2 MG/2 ML VIAL (J2250) As Ordered ONE (00:04)
[2019-11-19] MEDS ORDERED: fentaNYL 250 MCG/5 ML INJECTION (J3010) As Ordered ONE (00:04)
[2019-11-19] MEDS ORDERED: SUGAMMADEX SODIUM 500 MG/5 ML VIAL (BRIDION) As Ordered ONE (00:04)
[2019-11-19] MEDS ORDERED: ONDANSETRON 4MG/2ML VIAL (J2405) As Ordered ONE (00:04)
[2019-11-19] MEDS ORDERED: BACITRACIN PWD 50,000 UNITS VIAL As Ordered ONE (00:14)
[2019-11-19] MEDS ORDERED: ACETAMINOPHEN 1000MG 100ML IV BTL (OFIRMEV) (J0131 PER 10MG) As Ordered ONE (00:24)
[2019-11-19] MEDS ORDERED: HYDROCORTISONE As Ordered ONE (01:41)
[2019-11-19] MEDS ORDERED: HYDROCORTISONE 100 MG/2 ML VIAL (J1720 PER 1) As Ordered ONE (01:42)
[2019-11-19] MEDS ORDERED: LR 1,000 ML IV SCH (01:45)
[2019-11-19] MEDS ORDERED: METOCLOPRAMIDE INJ 10MG/2ML VIAL (J2765) IV PRN (01:45)
[2019-11-19] MEDS ORDERED: ONDANSETRON 4MG/2ML VIAL (J2405) IV PRN (01:45)
[2019-11-19] MEDS ORDERED: MEPERIDINE INJ 25 MG/ML VIAL (J2175) IV PRN (01:45)
[2019-11-19] MEDS ORDERED: PERCOCET 5MG/325MG TAB PO PRN (01:45)
[2019-11-19] MEDS ORDERED: fentaNYL 100 MCG/2 ML INJECTION (J3010) IV PRN (01:45)
[2019-11-19 02:29] LABS: VENOUS BASE EXCESS -4.2 (-2.0-2.0); VENOUS HCO3 20.1 MEQ/L (23.0-27.0); VENOUS O2 SATURATION 99.3 % (60.0-80.0); VENOUS PARTIAL PRESSURE CO2 34.3 mmHg (38.0-50.0); VENOUS PARTIAL PRESSURE O2 177.2 mmHg (30.0-50.0); VENOUS PH 7.385 UNITS (7.330-7.430); VENOUS STANDARD HCO3 21.1 MEQ/L; VENOUS TOTAL CO2 21.1 MEQ/L (24.0-28.0)
[2019-11-19] MEDS: CLINDAMYCIN 900 MG in IV 1 EA IV SCH ×2 (03:54→15:47)
[2019-11-19] MEDS ORDERED: PIPERACILLIN/TAZOBACTAM SOD 4.5 GM in D5W MINI-BAG PLUS 50 ML IV ONE (04:00)
[2019-11-19 06:47] LABS: OSMOLALITY URINE 406 MOSM/KG (500-800)
[2019-11-19 07:11] LABS: SODIUM,RANDOM URINE < 10 MEQ/L
[2019-11-19] MEDS: CARVedilol 6.25 MG TAB PO SCH ×2 (09:00→22:05)
[2019-11-19] MEDS: NS 1,000 ML IV SCH ×3 (09:30→22:06)
[2019-11-19 09:56] LABS: HEMATOCRIT 37.9 % (42.0-52.0); MEAN CORPUSCULAR HEMOGLOBIN 30.9 pg (27.0-33.0); MEAN CORPUSCULAR HGB CONC 33.8 g/dl (32.0-36.5); MEAN CORPUSCULAR VOLUME 91.5 fl (80.0-96.0); PLATELET COUNT, AUTOMATED 156 10^3/uL (150-450); RED BLOOD COUNT 4.14 10^6/uL (4.30-6.10)
--- NOTE | 2019-11-19 09:57 | CR ---
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 HISTORY OF PRESENT ILLNESS: The patient is a 64-year-old gentleman who comes in today with a 3-day history of fevers, scrotal swelling, inguinal pain and left lower quadrant pain with increasing swelling. In the emergency room, he has a white blood count of 20,000 and a T-max of 101. A CT scan of the abdomen and pelvis was done and this showed significant soft tissue swelling in the perineum with multiple foci of gas and this extends into the left inguinal region. Also, with scrotal swelling. 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 The patient says his urine has been dark, but he denies any gross hematuria or burning with urination. There has been no trauma to the perineal area that he is aware of. He has been moving his bowels normally and does get occasional diarrhea. He felt like he was coming down with a "cold" several days ago and has had some upper respiratory complaints. PAST MEDICAL HISTORY: High blood pressure, possible coronary artery disease, chronic obstructive pulmonary disease (COPD), and morbid obesity. PAST SURGICAL HISTORY: Bone spurs and arthroscopic surgery. MEDICATIONS: Prednisone, meclizine, atorvastatin, carvedilol, aspirin, and cyclobenzaprine. ALLERGIES: No known drug allergies. SOCIAL HISTORY: . He does not smoke cigarettes. He only drinks alcohol very occasionally. He denies any other drug use or abuse. PHYSICAL EXAMINATION: This is a morbidly obese gentleman lying in the hospital bed in no apparent respiratory distress, although he does have a slight cough. His T-max in the emergency room was 101 degrees. His pulse was 100. His blood pressure was 141/65. His respiratory rate was 20. He was satting at 96% on room air. His head was normocephalic, atraumatic. His trachea was midline. His lungs were clear to auscultation and percussion. He had no costovertebral angle (CVA) tenderness. His abdomen was obese, but otherwise soft, except for tenderness more in the inguinal area and left lower quadrant. He had significant swelling in the inguinal area and erythema of the skin. He had significant tenderness and swelling of the bilateral scrotal sac with some mild thickening of the skin extending onto the perineum. I attempted to do a rectal exam, but because of his size and the ER bed, this was almost impossible. His extremities show no cyanosis, clubbing or edema. LABORATORY DATA: His white blood count 20.2. Hemoglobin/hematocrit (H/H) 15.1/43.7. Lactic acid was very elevated at 21.4. His BUN was 20 and his creatinine was 1.26. His sodium was also low 129. CT scan of the abdomen and pelvis and scrotal ultrasound as above with no discrete abscesses, but gas and inflammation in the inguinal area and scrotal area consistent with Dulce's gangrene. I discussed these findings at length with Polo in the hospital today. We discussed that since there is no discrete abscesses, that it is still recommended to do surgical exploration and make small incisions to see whether there is any purulent material or skin that needs to be removed. We discussed that we will be doing incision and drainage and any debridement that is needed and that this will go up onto the inguinal area and possibly into the perineum. Dr. Vaca was also called in for consultation in case sigmoidoscopy is necessary. Informed consent was obtained in verbal and written form. The patient understands that this can be a deadly condition and needs to be taken care of emergently. He understands that there may be need for further surgical management in the future and that if skin is removed that he may need plastic surgical procedures in the future in order to cover the testicles, although I do not believe that we will need to go that far in this case. 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 PLAN: Emergent surgical intervention with incision, drainage, and possible debridement.
[2019-11-19 10:08] LABS: HEMOGLOBIN 12.8 g/dl (13.5-17.5)
[2019-11-19 10:19] LABS: BLOOD UREA NITROGEN 21 MG/DL (7-18); CALCIUM LEVEL 8.2 MG/DL (8.8-10.2); CARBON DIOXIDE LEVEL 29 MEQ/L (21-32); CHLORIDE LEVEL 99 MEQ/L (98-107); CREATININE FOR GFR 1.03 MG/DL (0.70-1.30); GLOMERULAR FILTRATION RATE > 60.0 (>49); GLUCOSE, FASTING 169 MG/DL (70-100); POTASSIUM SERUM 3.7 MEQ/L (3.5-5.1); SODIUM LEVEL 132 MEQ/L (136-145)
[2019-11-19] MEDS ORDERED: VANCOMYCIN HCL 1,000 MG, VIAL MATE ADAPTER 1 EACH in D5W 250 ML IV SCH (11:45)
[2019-11-19] MEDS: VANCOMYCIN HCL 1,000 MG, VIAL MATE ADAPTER 1 EACH in D5W 250 ML IV SCH ×3 (12:28→22:05)
[2019-11-19] MEDS: PIPERACILLIN/TAZOBACTAM SOD 3.375 GM in D5W MINI-BAG PLUS 50 ML IV SCH ×2 (12:28→18:20)
[2019-11-19] MEDS: ASPIRIN 81 MG ENTERIC TAB PO SCH (12:29)
[2019-11-19] MEDS: ATORVASTATIN 20 MG TAB PO SCH (12:29)
[2019-11-19] MEDS: OSELTAMIVIR PHOSPHATE 75 MG CAP (TAMIFLU) PO SCH ×2 (12:30→22:05)
--- NOTE | 2019-11-19 12:31 | PHACANCOPD ---
PHARMACY VANCOMYCIN DOSING Pt Demographics Demographics Patient Age:64 , Weight:203.600 , Gender: male Adjusted Body Weight Date: 11/19/19, Adjusted Body Weight: Kg Events Past 24 Hours Events Past 24 Hours: YES: Elevation in WBC; NO: Dialysis, Diuretic Therapy, Change in CrCl, Fever, Pending Diagnostics, Pending Procedures, Other Vancomycin Vancomycin indication: SSTI/Dulce's Gangrene Vancomycin Target Ranges: 15-20 mcg/ml Vancomycin Load Y/N: Yes Load Dose Date Time Vancomycin Load Dose: 2000mg Date: 11/19/19 Time: 1300 Vancomycin Dose Date: 11/19/19. Current Vancomycin Dose: [ 1 gram every 8 hours ] Intermittent Dosing?: No Labs Labs Item Value Date Time White Blood Count 20.2 10^3/uL H 11/18/192015 White Blood Count 18.0 10^3/uL H 11/19/19 0941 Erythrocyte Sedimentation Rate 66 mm/hr H 11/18/192015 Lactic Acid Level 4.4 MMOL/L *H 11/18/192015 Lactic Acid Followup at 4 Hours 3.0 MMOL/L *H 11/19/19 0223 C-Reactive Protein, Quantitative 18.10 MG/DL H 11/18/192015 Blood Urea Nitrogen 20 MG/DL H 11/18/192015 Creatinine 1.26 MG/DL 11/18/192015 Creatinine 1.03 MG/DL 11/19/19 0941 Glomerular Filtration Rate > 60.0 11/19/19 0941 Glomerular Filtration Rate > 60.0 11/18/192015 Micro Microbiology 11/19/19 Gram Stain, Received Pending 11/19/19 Abscess Culture, Received Pending 11/19/19 Anaerobic Culture, Received Pending 11/18/19 Blood Culture, Received Pending 11/18/19 Blood Culture, Received Pending Creatinine Clearance Date:11/19/19. Creatinine Clearance: [ 81 mL/min ]. Assessment and Plan Maintaining Current Dose?: Yes Reason for dose change: No Dose Change Pharmacist Note Pharmacist Note Date: 11/19/19. Pharmacist note: Patient is a 64-year-old male who was initiated on empiric antibiotic therapy for treatment of Dulce's Gangrene. His therapy consists of Zosyn, clindamycin, and vancomycin, of which he has not received vancomycin previously at [facility]. He has decent kidney function and was scheduled a loading dose of 2 grams today at 1300. A maintenance dose of 1 gram every 8 hours was scheduled for later this evening. A vancomycin trough was scheduled for tomorrow tomorrow at 1200, with a goal trough of 15-20 mcg/dL. We will continue to monitor and make adjustments as needed. DAYDAY DILLON [facility] Nov 19, 2019 12:31
--- NOTE | 2019-11-19 12:55 | IPNPDOC ---
Text Note Date of Service The patient was seen on 11/19/19. NOTE Patient is postop day #1 incision, drainage, and debridement of a Founier's G angrene of the left inguinal region extending down onto the perineum but not into the scrotal sac. He is in the ICU and has not required pressors overnight and has remained afebrile although his white blood count is still significantly elevated at 18. All cultures are still pending. Physical exam: He is on a BiPAP machine and an ICU bed alert and oriented 3. He's been afebrile overnight. His abdomen is morbidly obese but otherwise soft and nontender and there is some mild drainage from the wound edges serosanguineous in nature. The wound was examined and he will get a dressing change soon. The left scrotal sac is still indurated and slightly tender but I do not see spread of the Dulce's for now. His extremities show no cyanosis clubbing or edema. Impression: -Postop day #1 incision, drainage, and debridement of a Dulce's gangrene of the left inguinal region extending into the perineum with septicemia -Patient who was seen at urgent care last week and diagnosed with the flu which we were not made aware of until today and he has had dry cough and fevers Plan: -Twice a day dressing changes and sitz baths if possible -Await final cultures -Continue treatment for septicemia with supportive care and BiPAP VS,Fishbone, I+O VS, Fishbone, I+O Laboratory Tests 11/18/19 20:16 11/19/19 09:41 Vital Signs Date Time Temp Pulse Resp B/P (MAP) Pulse Ox O2 Delivery O2 Flow Rate FiO2 11/19/19 09:00 59 121/72 11/19/19 08:00 97.0 26 97 NIPPV (BIPAP/CPAP) 4.0 11/19/19 02:00 40 I&O- Last 24 Hours up to 6 AM 11/19/19 06:00 Intake Total 2200 ml Output Total 620 ml Balance 1580 ml VISHAL NULL MD Nov 19, 2019 12:52
[2019-11-19] MEDS: fentaNYL 100 MCG/2 ML INJECTION (J3010) IV PRN ×4 (13:20→23:12)
--- NOTE | 2019-11-19 20:15 | IPNPDOC ---
Date Seen The patient was seen on 11/19/19. Progress Note SUBJECTIVE: 64 y.o male w/ PMH of CAD, CT, HTN & HLD who was admitted for Dulce's gangrene. He underwent I&D/debridement in the OR overnight, seen in the ICU this morning. He is laying comfortable in bed, pain is well controlled, without any complaints at this time. He denies any SOB, CP, N/V/D or abdominal pain. 10 point review of system is negative except for above. OBJECTIVE PHYSICAL EXAMINATION: VITAL SIGNS: Please see below. GENERAL: No distress, morbidly obese HEENT: moist mucus membranes CARDIOVASCULAR: S1, S2, no murmurs RESPIRATORY: diminished, clear to auscultation ABDOMINAL: Soft, non-tender, non-distended, +BS, L groin w/ dressing in place, soaked, overlaying multiple packed incisions. scrotal edema appreciated. EXTREMITIES: ROM intact NEUROLOGICAL: no focal deficits PSYCHOLOGICAL: calm LABORATORY DATA, IMAGING STUDIES, MICROBIOLOGY: Please see below. ASSESSMENT AND PLAN: 64 y.o male w/ PMH of CAD, CT, HTN, HLD & SERA is admitted for Dulce's gangrene. PROBLEMS: 1. Dulce's gangrene - s/p I&D/debridement, continue Vanc/Zosync/Clindamycin, cultures pending, IV hydration, further surgical intervention as per general surgery/Urology 2. CAD - continue optimal medical management with Aspirin, statin & BB 3. HTN - continue Coreg 4. SERA - continue CPAP DVT Prophylaxis - heparin SubQ GI Prophylaxis - not needed VS, I&O, 24H, Fishbone Vital Signs/I&O Vital Signs Date Time Temp Pulse Resp B/P (MAP) Pulse Ox O2 Delivery O2 Flow Rate FiO2 11/19/19 16:55 17 11/19/19 16:50 96 Room Air 11/19/19 16:00 97.9 70 138/82 (100) 11/19/19 13:25 2.0 11/19/19 02:00 40 I&O- Last 24 Hours up to 6 AM 11/19/19 05:59 Intake Total 2200 ml Output Total 620 ml Balance 1580 ml Laboratory Data 24H LABS Laboratory Tests 2 11/18/19 20:16: Immature Granulocyte % (Auto) 1.5, Neutrophils (%) (Auto) 85.9H, Lymphocytes (%) (Auto) 4.2L, Monocytes (%) (Auto) 8.1H, Eosinophils (%) (Auto) 0.0, Basophils (%) (Auto) 0.3, Neutrophils # (Auto) 17.3H, Lymphocytes # (Auto) 0.9L, Monocytes # (Auto) 1.6H, Eosinophils # (Auto) 0.0, Basophils # (Auto) 0.1, Nucleated Red Blood Cells % (auto) 0.0, Erythrocyte Sedimentation Rate 66H, Anion Gap 10, Glomerular Filtration Rate > 60.0, Lactic Acid Level 4.4*H, Calcium Level 8.4L, Total Bilirubin 2.0H, Direct Bilirubin 1.0H, Aspartate Amino Transf (AST/SGOT) 23, Alanine Aminotransferase (ALT/SGPT) 15, Alkaline Phosphatase 91, C-Reactive Protein, Quantitative 18.10H, Total Protein 7.0, Albumin 2.5L, Albumin/Globulin Ratio 0.56L 11/19/19 02:23: Blood Gas Bicarbonate Standard 21.1, Venous Blood pH 7.385, Venous Blood Partial Pressure CO2 34.3L, Venous Blood Partial Pressure O2 177.2H, Venous Blood Total Carbon Dioxide 21.1L, Venous Blood HCO3 20.1L, Venous Blood Oxygen Saturation 99.3H, Venous Blood Base Excess -4.2L, Lactic Acid Followup at 4 Hours 3.0*H 11/19/19 06:30: Urine Random Osmolality 406L, Urine Random Sodium < 10 11/19/19 09:41: Nucleated Red Blood Cells % (auto) 0.0, Anion Gap 4L, Glomerular Filtration Rate > 60.0, Calcium Level 8.2L 11/19/19 10:33: Methicillin-Resist S.aureus DNA PCR NOT DETECTED CBC/BMP Laboratory Tests 11/18/19 20:16 11/19/19 09:41 Microbiology Microbiology 11/19/19 Gram Stain - Final, Resulted 11/19/19 Abscess Culture, Resulted Pending 11/19/19 Anaerobic Culture, Resulted Pending 11/18/19 Blood Culture, Received Pending 11/18/19 Blood Culture, Received Pending DORA MAYNARD MD Nov 19, 2019 20:15
[2019-11-19] MEDS: HEPARIN SOD (PORCINE) 5000 UNITS/ML VIAL (J1644 PER 1000UNITS) SQ SCH (22:04)
[2019-11-20] VITALS: BP 115/55
[2019-11-20] MEDS: PIPERACILLIN/TAZOBACTAM SOD 3.375 GM in D5W MINI-BAG PLUS 50 ML IV SCH ×4 (00:59→19:04)
[2019-11-20 04:00] VITALS: BP 116/61
[2019-11-20] MEDS: CLINDAMYCIN 900 MG in IV 1 EA IV SCH (04:40)
[2019-11-20] MEDS: fentaNYL 100 MCG/2 ML INJECTION (J3010) IV PRN ×2 (04:40→10:02)
[2019-11-20 04:54] LABS: HEMATOCRIT 36.4 % (42.0-52.0); HEMOGLOBIN 12.3 g/dl (13.5-17.5); MEAN CORPUSCULAR HEMOGLOBIN 31.1 pg (27.0-33.0); MEAN CORPUSCULAR HGB CONC 33.8 g/dl (32.0-36.5); MEAN CORPUSCULAR VOLUME 91.9 fl (80.0-96.0); PLATELET COUNT, AUTOMATED 176 10^3/uL (150-450); RED BLOOD COUNT 3.96 10^6/uL (4.30-6.10); WHITE BLOOD COUNT 16.5 10^3/uL (4.0-10.0)
[2019-11-20 05:16] LABS: BLOOD UREA NITROGEN 18 MG/DL (7-18); CALCIUM LEVEL 8.1 MG/DL (8.8-10.2); CARBON DIOXIDE LEVEL 29 MEQ/L (21-32); CHLORIDE LEVEL 102 MEQ/L (98-107); GLOMERULAR FILTRATION RATE > 60.0 (>49); GLUCOSE, FASTING 117 MG/DL (70-100); MAGNESIUM LEVEL 2.3 MG/DL (1.8-2.4); PHOSPHORUS LEVEL 2.5 MG/DL (2.5-4.9); POTASSIUM SERUM 3.8 MEQ/L (3.5-5.1); SODIUM LEVEL 136 MEQ/L (136-145)
[2019-11-20] MEDS: VANCOMYCIN HCL 1,000 MG, VIAL MATE ADAPTER 1 EACH in D5W 250 ML IV SCH ×3 (06:13→21:26)
--- NOTE | 2019-11-20 07:20 | ECGEPIP ---
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
[2019-11-20 08:00] VITALS: BP 118/66
[2019-11-20] MEDS: ASPIRIN 81 MG ENTERIC TAB PO SCH (08:05)
[2019-11-20] MEDS: CARVedilol 6.25 MG TAB PO SCH ×2 (08:05→21:26)
[2019-11-20] MEDS: HEPARIN SOD (PORCINE) 5000 UNITS/ML VIAL (J1644 PER 1000UNITS) SQ SCH ×2 (08:05→21:25)
[2019-11-20] MEDS: ATORVASTATIN 20 MG TAB PO SCH (08:05)
[2019-11-20] MEDS: OSELTAMIVIR PHOSPHATE 75 MG CAP (TAMIFLU) PO SCH ×2 (08:05→21:25)
[2019-11-20] MEDS ORDERED: PERCOCET 5MG/325MG TAB PO PRN (08:45)
[2019-11-20] MEDS: PERCOCET 5MG/325MG TAB PO PRN (09:30)
--- NOTE | 2019-11-20 12:36 | IPNPDOC ---
Date Seen The patient was seen on 11/20/19. Progress Note SUBJECTIVE: 64 y.o male w/ PMH of CAD, ID, HTN & HLD who was admitted for Dulce's gangrene. He underwent I&D/debridement in the OR overnight, seen in the ICU this morning. He is laying comfortable in bed, pain is well controlled, without any complaints at this time. He denies any SOB, CP, N/V/D or abdominal pain. 11/20/19 Patient seen in the morning, comfortable in bed, tolerating CPAP overnight, pain is well controlled, no other complaints at this time. 10 point review of system is negative except for above. OBJECTIVE PHYSICAL EXAMINATION: VITAL SIGNS: Please see below. GENERAL: No distress, morbidly obese HEENT: moist mucus membranes CARDIOVASCULAR: S1, S2, no murmurs RESPIRATORY: diminished, clear to auscultation ABDOMINAL: Soft, non-tender, non-distended, +BS, L groin w/ dressing in place, soaked, overlaying multiple packed incisions. scrotal edema appreciated, scrotum tender to palpation. EXTREMITIES: ROM intact NEUROLOGICAL: no focal deficits PSYCHOLOGICAL: calm LABORATORY DATA, IMAGING STUDIES, MICROBIOLOGY: Please see below. ASSESSMENT AND PLAN: 64 y.o male w/ PMH of CAD, ID, HTN, HLD & SERA is admitted for Dulce's gangrene. PROBLEMS: 1. Dulce's gangrene - s/p I&D/debridement, continue Vanc/Zosyn, cultures pending, further surgical intervention as per general surgery/Urology, infectious disease consulted. 2. CAD - continue optimal medical management with Aspirin, statin & BB 3. HTN - continue Coreg 4. SERA - continue CPAP 5. Influenza continue Tamiflu for total of 5 days. DVT Prophylaxis - heparin SubQ GI Prophylaxis - not needed VS, I&O, 24H, Fishbone Vital Signs/I&O Vital Signs Date Time Temp Pulse Resp B/P (MAP) Pulse Ox O2 Delivery O2 Flow Rate FiO2 11/20/19 10:00 18 11/20/19 08:00 98.8 67 118/66 (83) 96 Room Air 11/20/19 04:00 11/19/19 02:00 40 I&O- Last 24 Hours up to 6 AM 11/20/19 06:00 Intake Total 4525 ml Output Total 2875 ml Balance 1650 ml Laboratory Data 24H LABS Laboratory Tests 2 11/20/19 04:18: Nucleated Red Blood Cells % (auto) 0.0, Anion Gap 5L, Glomerular Filtration Rate > 60.0, Calcium Level 8.1L, Phosphorus Level 2.5, Magnesium Level 2.3 11/20/19 11:58: CBC/BMP Laboratory Tests 11/20/19 04:18 Microbiology Microbiology 11/19/19 Gram Stain - Final, Resulted 11/19/19 Abscess Culture, Resulted Pending 11/19/19 Anaerobic Culture, Resulted Pending 11/18/19 Blood Culture - Preliminary, Resulted No growth after 24 hours . All specim... 11/18/19 Blood Culture - Preliminary, Resulted No growth after 24 hours . All specim... DROA MAYNARD MD Nov 20, 2019 12:36
[2019-11-20 12:44] LABS: VANCOMYCIN LEVEL TROUGH 11.8 UG/ML (10.0-20.0)
--- NOTE | 2019-11-20 13:13 | IPNPDOC ---
Text Note Date of Service The patient was seen on 11/20/19. NOTE NOTE Patient is postop day #2 incision, drainage, and debridement of a Founier's Gangrene of the left inguinal region extending down onto the perineum but not into the scrotal sac. He is in the ICU and has not required pressors and has remained afebrile Physical exam: He is on a BiPAP machine and an ICU bed alert and oriented 3. He's been afebrile overnight. His abdomen is morbidly obese but otherwise soft and nontender and there is some mild drainage from the wound edges serosanguineous in nature. The wound was examined and the tissue is much pinker today. The left scrotal sac is still indurated and slightly tender but I do not see spread of the Dulce's for now. His extremities show no cyanosis clubbing or edema. Impression: -Postop day #2 incision, drainage, and debridement of a Dulce's gangrene of the left inguinal region extending into the perineum with septicemia -Patient who was seen at urgent care last week and diagnosed with the flu which we were not made aware of until today and he has had dry cough and fevers Plan: -Twice a day dressing changes and sitz baths if possible -Await final cultures -Continue treatment for septicemia with supportive care and BiPAP VS,Jamesbone, I+O VS, Fishbone, I+O Laboratory Tests 11/20/19 04:18 Vital Signs Date Time Temp Pulse Resp B/P (MAP) Pulse Ox O2 Delivery O2 Flow Rate FiO2 11/20/19 10:00 18 11/20/19 08:00 98.8 67 118/66 (83) 96 Room Air 11/20/19 04:00 11/19/19 02:00 40 I&O- Last 24 Hours up to 6 AM0 11/20/19 06:00 Intake Total 4525 ml Output Total 2875 ml Balance 1650 ml VISHAL NULL MD Nov 20, 2019 13:13
[2019-11-20 14:20] LABS: C REACTIVE PROTEIN QUANTITATIV 12.8 MG/DL (0.00-0.30)
[2019-11-20] MEDS: K-PHOS NEUTRAL 250MG TABLET (SOD.PHOSPHATE/POT.PHOSPHATE) PO SCH ×2 (15:49→21:25)
--- NOTE | 2019-11-20 16:26 | RO ---
DATE OF PROCEDURE: 11/18/2019 PREOPERATIVE DIAGNOSIS: Dulce's gangrene. POSTOPERATIVE DIAGNOSIS: Dulce's gangrene. PROCEDURE: Incision, drainage, and debridement of left inguinal region, external scrotal area and perineum. SURGEON: Dr. Arcelia Brown FRAUD MANAGER: Dr. Vaca ANESTHESIA: General. MEDICATIONS: Zosyn. INDICATIONS FOR PROCEDURE: Dulce's gangrene. The patient is a 64-year-old gentleman who came in through the emergency room with a 3-day history of fevers up to 101. His white blood count was found to be 20. He was complaining of severe scrotal and inguinal pain and swelling. A CT scan showed gas and swelling of the tissue without any definite abscesses. In lieu of the clinical situation and physical examination, Dr. Vaca was also called in because this did extend so far up in the inguinal region. An informed consent was obtained to bring him emergently to the operating room for the above procedure. He understood that he would be left with an open wound and may require further surgical management in the future. He understands that this is a life-threatening condition and that he will need to continue to be treated for infection. DESCRIPTION OF PROCEDURE: The patient was brought into the operating room. Sequential compression devices and thromboembolic deterrent (MINI) stockings were placed. General anesthesia was induced. He was then placed in the lithotomy position. He was prepped and draped in the usual fashion. An 18-Divehi De León catheter was placed and there was some mild globulinuria, but otherwise clear urine. At this point, the areas were palpated that were the thickest and an incision was made from the left inguinal region all the way down the left side of the scrotal sac and perineum. This was opened and there was significant purulence, which was then sent as specimens for cultures and sensitivities with aerobic and anaerobic cultures. skin was then extensively debrided and tissue incised, and there were several satellite incisions made where tunnels were made for any further infection to be removed. This did extend fairly far up and also onto the left thigh. After debridement was finished, copious irrigation was done and then 2 inch iodoform packing was placed also coming through the satellite incisions. The patient tolerated the procedure well and was returned to recovery room in stable condition.
--- NOTE | 2019-11-20 20:22 | CR ---
DATE OF CONSULTATION: 11/20/2019 CONSULTATION REPORT FOR: Dr. Flores REASON FOR CONSULTATION: Dulce's gangrene. PRIMARY CARE PROVIDER: Yaquelin Spencer NP CLINICAL DATA ASSISTANT: Dr. Bradford HISTORY OF PRESENT ILLNESS: Mr. Bolton is a 64-year-old male admitted for gradually worsening scrotal swelling and pain over the past one week. He denies any prior episode similar to this. He reports that he has had gradual increasing in his scrotal size along with pain, redness and warmth at the site gradually worsening over the past one week. He denies any abnormal discharges or any fevers or chills. He initially did present for initial workup where he was told to try topical cream, what appears to be perhaps topical nystatin, and he did not improve and progressively worsened to such severe pain leading him to call the ambulance. 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 He was septic on presentation and assessed by urology on admission who urgently took him to the operating room (OR) for an incision, drainage and debridement of the left inguinal region and external scrotal area and peroneum by Dr. Brown on 11/18/2019. Infectious disease has been consulted to further assist with management of his infection. Thus far, he has received two days of clindamycin and is now on day three of vancomycin and Zosyn. When assessed at bedside in the intensive care unit (ICU), he reports scrotal pain is under control and swelling that has slightly improved from admission. Denies any fever, chills, nausea, vomiting, abdominal pain, or any abnormal discharges or any other skin rashes. He is noted to be afebrile since his admission with improving white count and C-reactive protein (CRP). Of note, he was recently diagnosed with the flu for which he has been on Tamiflu since 11/16/2019. PAST MEDICAL HISTORY: 1. Dyslipidemia. 2. history of a myocardial infarction (AK) in 2011, status post catheterization at [facility] without any stents or grafts. 3. Morbid obesity with a body mass index (BMI) nearing 60. 4. Hypertension. 5. Obstructive sleep apnea. ALLERGIES: No known allergies. PAST SURGICAL HISTORY: Bone spur, tendon repair in the foot in 1999, colonoscopy with polyp resection, eye lift of the right eyelid, right knee partial medial and lateral meniscectomy. SOCIAL HISTORY: Denies any tobacco use. Admits to rare alcohol use. Denies any illicit substances. 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 Lives at home with and son. FAMILY HISTORY: Unknown for the mother. Father was an alcoholic and had coronary artery disease, diabetes, hypertension and liver failure. Sibling has hypertension in the brother and paternal grandfather also had hypertension. HOME MEDICATIONS: - aspirin 81 mg by mouth daily - atorvastatin 80 mg by mouth daily - carvedilol 6.25 mg by mouth twice a day - Tamiflu 75 mg by mouth twice a day ordered on 11/16/2019 CURRENT INPATIENT MEDICATIONS: - fentanyl 100 mcg every eight hours as needed IV - Tamiflu 75 mg by mouth twice a day - Coreg 6.25 mg by mouth twice a day - Lipitor 80 mg by mouth daily - aspirin 81 mg by mouth daily - Zosyn 3.275 grams every six hours IV, currently day three - vancomycin 1000 mg IV every eight hours, currently day three - Percocet two tablets by mouth every six hours as needed - Percocet one tablet by mouth every six hours as needed - K-Phos Neutral 250 mg by mouth three times a day REVIEW OF SYSTEMS: Denies any fever, chills, night sweats, weight loss, nausea, vomiting, abdominal pain, lightheadedness, dizziness, chest pain, shortness of breath, cough, wheezing, sputum production, any new constipation or diarrhea, or any new blood loss from bowel. Denies any new edema and denies any motor or sensory changes. Admits to scrotal swelling and redness as noted in the history of present illness (HPI). Denies any other skin rashes or lesions. PHYSICAL EXAMINATION: VITAL SIGNS: Temperature 98.8, pulse 67, respirations 20, blood pressure 118/56 with a mean arterial pressure (MAP) of 83, pulse oximetry 96% on room air. Maximum temperature (T-max) since admission is 101.4 which was the evening of 11/18/2019, T-max the last 24 hours is 98.8. GENERAL: Resting comfortably in bed, in no acute distress, alert and oriented times three, fully conversant. Head is normocephalic, atraumatic. Extraocular muscles intact. Moist mucous membranes. Neck is supple. CARDIAC: Distant sounds due to large body habitus. Normal S1, S2. Regular rate and rhythm. No appreciable murmurs. LUNGS: Clear to auscultation bilaterally. No wheezing, rales, or rhonchi. ABDOMEN: Obese with normoactive bowel sounds. No rebound, guarding, or rigidity. GENITOURINARY: A De León is in place draining pink to bright red blood output. There is significant scrotal swelling with dressing in place in the left inguinal region from recent surgical intervention. There is some serosanguineous drainage into the surrounding area. Very tender to palpation in the peroneal region. No visible necrosis. EXTREMITIES: No edema, clubbing or cyanosis, 2+ radial pulses bilaterally. MUSCULOSKELETAL: Full range of motion without any swollen red hot joints. NEUROLOGIC: No focal deficit. LABORATORY DATA: WBC down from 20.2 on admission to 15.5 today, hemoglobin and hematocrit 12.3/36.4, platelets 176. ESR of 66 with a CRP down from 18 on admission to 12.8 today. Sodium/potassium 136 and 3.8, chloride/bicarbonate 102/29, BUN and creatinine 18/0.9, lactate on admission 4.4 down to 3. Negative MRSA. Initial blood cultures negative after 24 hours. Groin gram-stain and cultures pending. Scrotal ultrasound on admission showed scrotal thickening and swelling mostly on the right side, infectious or inflammatory with several tiny hyperechoic foci in the left testis consistent with nephrolithiasis, bilateral epididymal cysts and at the curvature of right testes small hypoechoic intratesticular cyst or tunica albuginea cyst measuring 0.3 x 0[address] of abdomen and pelvis on admission notes significant soft tissue swelling of the peroneum with multiple foci of gas. These findings extend to the left inguinal region. Scrotal swelling is also visualized. These findings are consistent with necrotizing infection/Dulce's gangrene, fatty infiltrate of the liver, cholelithiasis, small umbilical hernia containing small bowel, inguinal lymph nodes identified bilaterally enlarged and a few mildly enlarged intrapelvic lymph nodes, grade 1/2 anterolisthesis L5-S1. 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 Sepsis, Dulce's gangrene. He is much improved after IV fluids and antibiotics. He is status post three days of clindamycin and currently day three of vancomycin and Zosyn. He is improving symptomatically and clinically with his white count trending down as well as his C-reactive protein (CRP). Currently, we will leave the antibiotics as is until the intraoperative cultures result. It is reassuring that his admission blood cultures are negative and he is no longer febrile. We will await his final results of his left groin abscess cultures sent by Dr. Brown. He is currently postoperative day two from the OR on 11/18/2019. Continue wound care. If he clinically continues to do well, may downgrade out of the intensive care unit (ICU). Continue pain control and physical therapy (PT) and occupational therapy (OT) when the patient is able to tolerate. Thank you for this consultation. We will follow along. JEFF
[2019-11-20 22:00] VITALS: BP 142/76
[2019-11-21] MEDS: PIPERACILLIN/TAZOBACTAM SOD 3.375 GM in D5W MINI-BAG PLUS 50 ML IV SCH ×5 (00:24→23:26)
[2019-11-21 02:00] VITALS: BP 135/75
[2019-11-21] MEDS: VANCOMYCIN HCL 1,000 MG, VIAL MATE ADAPTER 1 EACH in D5W 250 ML IV SCH ×2 (04:39→12:56)
[2019-11-21 06:00] VITALS: BP 139/82
[2019-11-21 06:15] LABS: HEMATOCRIT 37.3 % (42.0-52.0); HEMOGLOBIN 12.3 g/dl (13.5-17.5); MEAN CORPUSCULAR HEMOGLOBIN 30.7 pg (27.0-33.0); PLATELET COUNT, AUTOMATED 212 10^3/uL (150-450); RED BLOOD COUNT 4.01 10^6/uL (4.30-6.10); WHITE BLOOD COUNT 13.6 10^3/uL (4.0-10.0)
[2019-11-21 06:35] LABS: BLOOD UREA NITROGEN 18 MG/DL (7-18); CALCIUM LEVEL 8.5 MG/DL (8.8-10.2); CARBON DIOXIDE LEVEL 28 MEQ/L (21-32); CHLORIDE LEVEL 101 MEQ/L (98-107); CREATININE FOR GFR 0.92 MG/DL (0.70-1.30); GLOMERULAR FILTRATION RATE > 60.0 (>49); GLUCOSE, FASTING 110 MG/DL (70-100); POTASSIUM SERUM 3.4 MEQ/L (3.5-5.1); SODIUM LEVEL 135 MEQ/L (136-145)
[2019-11-21] MEDS: HYDROMORPHONE HCL 0.5 MG/ 0.5 ML SYRINGE (J1170 PER 1) IV PRN (08:06)
[2019-11-21] MEDS: ATORVASTATIN 20 MG TAB PO SCH (08:50)
[2019-11-21] MEDS: OSELTAMIVIR PHOSPHATE 75 MG CAP (TAMIFLU) PO SCH ×2 (08:50→20:10)
[2019-11-21] MEDS: ASPIRIN 81 MG ENTERIC TAB PO SCH (08:50)
[2019-11-21] MEDS: CARVedilol 6.25 MG TAB PO SCH ×2 (08:50→20:13)
[2019-11-21] MEDS: K-PHOS NEUTRAL 250MG TABLET (SOD.PHOSPHATE/POT.PHOSPHATE) PO SCH ×2 (08:50→17:30)
[2019-11-21] MEDS: HEPARIN SOD (PORCINE) 5000 UNITS/ML VIAL (J1644 PER 1000UNITS) SQ SCH ×2 (08:51→20:13)
--- NOTE | 2019-11-21 08:52 | IPNPDOC ---
Subjective Review oF Systems Chief Complaint The patient is a 64-year-old male admitted with a reason for visit of Dulce Gangrene. Events since Last Encounter No acute events o/n. Patient notes that the dressing changes are painful, but he is doing ok w/ them. No n/v. He has gotten out of bed a few times w/ assistance. No f/c/ns. Objective Physical Examination General Exam: Alert, Cooperative, No Acute Distress ABDOMEN EXAM: Other (dressings removed from L groin; 90% of tissue is pink and healthy w/ no active drainage; L side of wound has a moderate amount of granulation tissue; penis and scrotum are edematous but nontender and w/o crepitus) Other physical findings catheter in place, draining clear urine Vital Signs/I&O Vital Signs Date Time Temp Pulse Resp B/P (MAP) Pulse Ox O2 Delivery O2 Flow Rate FiO2 11/21/19 08:16 18 Room Air 11/21/19 06:00 98.2 66 139/82 (101) 93 11/20/19 04:00 11/19/19 02:00 40 I&O- Last 24 Hours up to 6 AM 11/21/19 06:00 Intake Total 1952 ml Output Total 1300 ml Balance 652 ml Laboratory Data Labs 24H Laboratory Tests 2 11/20/19 11:58: C-Reactive Protein, Quantitative 12.80H, Vancomycin Level Trough 11.8 11/21/19 05:27: Nucleated Red Blood Cells % (auto) 0.0, Anion Gap 6L, Glomerular Filtration Rate > 60.0, Calcium Level 8.5L CBC/BMP Laboratory Tests 11/21/19 05:27 Microbiology Microbiology 11/19/19 Gram Stain - Final, Resulted 11/19/19 Abscess Culture, Resulted Pending 11/19/19 Anaerobic Culture, Resulted Pending 11/18/19 Blood Culture - Preliminary, Resulted No Growth after 48 hours. All Specime... 11/18/19 Blood Culture - Preliminary, Resulted No Growth after 48 hours. All Specime... Assessment/Plan Date Seen The patient was seen on 11/21/19. 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 He is still on vanc and zosyn and getting BID wet-to-dry dressing changes. His WBC is trending down. He has been afebrile. Cultures are still pending. Plan/VTE VTE Prophylaxis Ordered?: Yes VTE Exclusion Mechanical Proph: N/A:VTE Prophy Ordered Plan/Urinary Catheter Reason for insertion/continuin: Assist wound healing Plan - cont broad spectrum abx - will defer to ID for final abx recs once cultures result - cont BID wet-to-dry dressing changes - can give dilaudid 0.5mg 10-15 minutes prior to dressing change - patient might need to be taken back to the OR for further debridement - might ultimately try to place a wound vac in a few days to aid in wound healing MISAEL WILKINSON MD Nov 21, 2019 08:52
[2019-11-21 10:00] VITALS: BP 141/75
[2019-11-21] MEDS ORDERED: POTASSIUM CHLORIDE 10 MEQ SR TABLET PO ONE (10:00)
[2019-11-21] MEDS ORDERED: SODIUM CHLORIDE NASAL 0.65% SPRAY BTL (OCEAN) PRN (12:45)
--- NOTE | 2019-11-21 12:45 | IPN ---
DATE: 11/21/2019 The patient currently has no pain at the bedside. When dressing changes are being done; however, he feels like he is being filleted like a fish with pain 10 out of 10 despite pain medications given with Percocet 5/325 mg two tablets every 6 hours and hydromorphone 0.5 mg. Currently still on vancomycin and Zosyn with serosanguineous drainage through the Dulce's gangrene incision site. The patient currently has no fever or chills. He is refusing to wear his continuous positive airway pressure (CPAP) because his nose feels dry. Refusing nasal spray as well. PHYSICAL EXAMINATION: VITAL SIGNS: Temperature 98.2, pulse 66, respiratory rate 18, blood pressure 139/82, 93% on room air. GENERAL: Awake, alert, oriented. Morbidly obese. Thick neck. No jugular venous distention (JVD) or thyromegaly. LUNGS: Clear to auscultation. No wheezing or rales. HEART: S1, S2. Sinus. ABDOMEN: Obese, soft, nontender, nondistended. Unable to assess for abdominal bruits. GENITOURINARY: Groin has dressing in the left groin, serous drainage, left sided wound, clean, slightly wet with serous drainage and some erythema and tenderness. LABORATORY DATA: White count 13, hemoglobin 12, hematocrit 37, platelet count 212, potassium 3.4. ASSESSMENT AND PLAN: 64-year-old male with morbid obesity, Body Mass Index (BMI) of 59.9, obstructive sleep apnea on chronic CPAP, currently refusing CPAP, admitted for Dulce's gangrene of the left groin, status post debridement on IV vancomycin and Zosyn. 1. Dulce's gangrene, status post debridement by urology and general surgery. Groin cultures are still pending. On vancomycin and Zosyn with decreasing white count without a fever. Infectious disease specialist has been consulted. Dressing changes postoperative with management per urology. Pain management with intravenous Dilaudid. 2. Obstructive sleep apnea, high risk of hypercapnic respiratory failure. The patient has been encouraged to wear his CPAP but is currently refusing. 3. Influenza, on Tamiflu 75 mg twice a day.
[2019-11-21] MEDS: SODIUM CHLORIDE 0.9% NASAL GEL 15GM (AYR) SCH ×3 (13:00→20:17)
[2019-11-21 14:00] VITALS: BP 138/64
[2019-11-21 18:00] VITALS: BP 139/74
--- NOTE | 2019-11-21 21:17 | IPN ---
INFECTIOUS DISEASE PROGRESS NOTE DATE: 11/21/2019 Mr. Bolton is seen and examined at bedside. He has been downgraded out of the intensive care unit (ICU) to the general medical floor and he is feeling better today. Denies any fever, chills, nausea, vomiting, abdominal pain. He reports his scrotal swelling is unchanged from prior days, however the pain, redness, warmth, and tautness have all improved. White count is trending down and he is otherwise doing well. No other issues. PHYSICAL EXAMINATION: Vital signs: Temperature 98.2, pulse 72, respirations 19, blood pressure 138/60 with mean arterial pressure (MAP) of 88, pulse oximetry 97% on room air, maximum temperature (T-max) last 24 hours is 98.8. He is resting comfortably in bed, no acute distress, alert and oriented times three, appropriately conversant. Head: Normocephalic, atraumatic. Extraocular muscles intact. Moist mucous membranes. Neck is supple. Regular rate and rhythm of the heart without any murmur, clicks, or gallops. Lungs are clear throughout without wheezing, rhonchi, or rales. Abdomen: Obese, normoactive bowel sounds. No rebound, guarding, or rigidity. No peripheral edema, clubbing, cyanosis. 2+ radial pulses bilaterally. He has full range of motion in all extremities. No red, hot, swollen joints. No focal deficits. Genitourinary (): De León in place with clear yellow output, improved from yesterday which was bloody previously. He continues to have significant scrotal swelling and erythema. Less tender to palpation from prior days. Left groin is packed with dressing in place in the left inguinal region from recent surgery with sanguineous drainage onto the dressing. Tender to palpation in the perineal region. No necrosis. LABORATORY DATA: WBC 13.6, down from 16.5, hemoglobin and hematocrit 12.3 and 37.3, platelets 212. Sodium and potassium 135 and 3.4, BUN and creatinine 18 and 0.92, CRP yesterday 12.8, down from 18 on 11/18/2019. Blood cultures negative last 72 hours. Left groin abscess has many gram-negative rods and few WBCs, few gram-positive cocci in clusters with final cultures pending. IMPRESSION/PLAN: This is a 64-year-old, morbidly obese gentleman initially septic on presentation and found to have Dulce's gangrene taken urgently to the operating room (OR) by Dr. Brown on 11/18/2019 for incision and drainage (I and D) and debridement. 1. Dulce's gangrene. He is doing much better today status post day #4 vancomycin and Zosyn and given his negative methicillin-resistant Staphylococcus aureus (MRSA). Discussed with the lab his growth on his cultures of the groin from his recent I and D in the OR, they are growing group F Streptococcus and another alpha Streptococcus and a questionable anaerobe, but negative also for MRSA. Thus, will discontinue vancomycin, continue Zosyn, monitor clinically. White count and C-reactive protein (CRP) trending down. He remains afebrile. 2. Recent influenza. Started on Tamiflu on 11/16/2019. We will discontinue Tamiflu today given he has completed a 5 day course and is otherwise doing well. My faculty preceptor for this patient encounter was physically present during the encounter and was fully available. All aspects of the patient interview, examination, medical decision making process, and medical care plan development were reviewed and approved by the faculty preceptor. The faculty preceptor is aware and concurs with the plan as stated in the body of this note and will attest to such by her cosignature. JEFF
[2019-11-21 22:00] VITALS: BP 137/73
[2019-11-21] MEDS: hydrOXYzine 50 MG TAB PO PRN (23:26)
[2019-11-22] VITALS (11 sets, daily range): BP systolic 130–157; BP diastolic 70–85
[2019-11-22] MEDS: HYDROMORPHONE HCL 0.5 MG/ 0.5 ML SYRINGE (J1170 PER 1) IV PRN (02:09)
[2019-11-22] MEDS: PIPERACILLIN/TAZOBACTAM SOD 3.375 GM in D5W MINI-BAG PLUS 50 ML IV SCH ×4 (06:58→23:38)
[2019-11-22] MEDS: ATORVASTATIN 20 MG TAB PO SCH (09:45)
[2019-11-22] MEDS: HEPARIN SOD (PORCINE) 5000 UNITS/ML VIAL (J1644 PER 1000UNITS) SQ SCH (09:45)
[2019-11-22] MEDS: ASPIRIN 81 MG ENTERIC TAB PO SCH (09:45)
[2019-11-22] MEDS: CARVedilol 6.25 MG TAB PO SCH ×2 (09:46→20:41)
[2019-11-22] MEDS: SODIUM CHLORIDE 0.9% NASAL GEL 15GM (AYR) SCH ×4 (09:46→20:42)
--- NOTE | 2019-11-22 10:25 | IPNPDOC ---
Subjective Date Seen The patient was seen on 11/22/19. Subjective Chief Complaint/HPI Genital wound Events since last encounter No new complaints. Pain is sl improved General: Denies: ROS Unobtainable, Chills, Night Sweats, Fatigue, Malaise, Normal Appetite, Other Symptoms Constitutional: Denies: Chills, Fever, Night Sweats Pulmonary: Denies: Dyspnea, Cough, Pleuritic Chest Pain, Other Symptoms Cardiovascular: Denies: Chest Pain, Palpitations, Orthopnea, Paroxysmal Noc. Dyspnea, Edema, Lt Headedness, Other Symptoms Objective Physical Examination General Exam: Positive: Cooperative, No Acute Distress Eye Exam: Positive: PERRLA, EOMI ENT Exam: Positive: Atraumatic, Mucous membr. moist/pink Neck Exam: Positive: Supple Chest Exam: Positive: Normal air movement Heart Exam: Positive: Rate Normal Abdomen Exam: Positive: Normal bowel sounds Male Exam: Positive: Lesions (Wound edges pink. Mod penoscrotal edema without crepitus. Some necrotic tissue in wound base) Skin Exam: Positive: Nl turgor and temperature Neuro Exam: Positive: Normal Speech, Normal Tone Psych Exam: Positive: Mental status NL, Mood NL, Oriented x 3 Other physical findings Obese Assessment /Plan Assessment Dulce's gangrene Problems (1) Dulce gangrene Status: Acute Plan/VTE VTE Prophylaxis Ordered?: Yes VTE Exclusion Mechanical Proph: N/A:VTE Prophy Ordered Plan/Urinary Catheter Reason for insertion/continuin: Assist wound healing Plan Diet: Make NPO To OR for dressing change and wound debridgement Risks incl med reaction, bleeding, the need for other procedures and measures discussed. He wishes to proceed. VS, I&O, 24H, Fishbone Vital Signs/I&O Vital Signs Date Time Temp Pulse Resp B/P (MAP) Pulse Ox O2 Delivery O2 Flow Rate FiO2 11/22/19 09:46 65 134/74 11/22/19 06:00 98.2 17 95 Room Air 11/20/19 04:00 11/19/19 02:00 40 I&O- Last 24 Hours up to 6 AM 11/22/19 06:00 Intake Total 1656 ml Output Total 2050 ml Balance -394 ml Laboratory Data 24H LABS Laboratory Tests 2 11/21/19 11:56: Vancomycin Level Trough 12.3 Microbiology Microbiology 11/19/19 Gram Stain - Final, Resulted 11/19/19 Abscess Culture - Final, Resulted Strep (Group F) Constellatus Granulicatella Adiacens 11/19/19 Anaerobic Culture, Resulted Pending 11/18/19 Blood Culture - Preliminary, Resulted No Growth after 72 hours. All specime... 11/18/19 Blood Culture - Preliminary, Resulted No Growth after 72 hours. All specime... JACLYN JONES MD Nov 22, 2019 10:25
[2019-11-22 13:05] LABS: HEMATOCRIT 36.8 % (42.0-52.0); HEMOGLOBIN 12.4 g/dl (13.5-17.5); MEAN CORPUSCULAR HEMOGLOBIN 31.3 pg (27.0-33.0); MEAN CORPUSCULAR HGB CONC 33.7 g/dl (32.0-36.5); MEAN CORPUSCULAR VOLUME 92.9 fl (80.0-96.0); PLATELET COUNT, AUTOMATED 218 10^3/uL (150-450); RED BLOOD COUNT 3.96 10^6/uL (4.30-6.10); WHITE BLOOD COUNT 12.9 10^3/uL (4.0-10.0)
[2019-11-22 13:31] LABS: ATYPICAL LYMPH 1 % (0-5); EOSINOPHILS 2 % (0-3); LYMPHOCYTES 12 % (16-44); METAMYELOCYTES 1 % (0-0); MONOCYTES 4 % (0-5); NEUTROPHILS 79 % (28-66); PLATELET ESTIMATE NORMAL (NORMAL)
--- NOTE | 2019-11-22 13:31 | IPN ---
DATE OF SERVICE: 11/22/2019 The patient has no pain when he is not moving and dressing changes are not being done. He complains of 10/10 sharp "like slaying me" when dressing changes are being made. He continues to have serosanguineous drainage at the incision surgical site. He has been kept nothing by mouth (n.p.o.) for further debridement by urology today. He remained afebrile overnight. White count is 13.6 as of yesterday. No other issues per nursing overnight. PHYSICAL EXAMINATION: VITAL SIGNS: Temperature 98, pulse 58, respiratory rate 16, blood pressure 156/85, 97% on room air. GENERAL: The patient is awake, alert, oriented, answering questions appropriately. Face is symmetric. Tongue is midline. Thick neck. No jugular venous distention (JVD). LUNGS: Clear. No wheezing or rales. HEART: S1, S2. Sinus. ABDOMEN: Obese, soft, nontender. EXTREMITIES: Chronic edema 1+. GENITOURINARY: The patient has scrotal edema, no crepitus. The patient has serous drainage left groin with a clean dressing and no purulence. No odor. LABORATORY DATA. MICROBIOLOGY, IMAGING STUDIES: REVIEWED, PLS SEE BELOW PROCEDURE INFORMATION: Exam: CT Abdomen And Pelvis With Contrast Exam date and time: 11/18/2019 9:19 PM Age: 64 years old Clinical indication: Mass, lump, or swelling; Lower; Abdominal pain; Localized; Additional info: Pelvic swelling/pain; R/O abscess TECHNIQUE: Imaging protocol: Computed tomography of the abdomen and pelvis with intravenous contrast. Radiation optimization: All CT scans at this facility use at least one of these dose optimization techniques: automated exposure control; mA and/or kV adjustment per patient size (includes targeted exams where dose is matched to clinical indication); or iterative reconstruction. Contrast material: ISOVUE 370; Contrast volume: 100 ml; Contrast route: IV; COMPARISON: No relevant prior studies available. FINDINGS: Liver: There is hypodense fatty infiltration of the liver. Gallbladder and bile ducts: Dependent hyperdensity is identified within the gallbladder, likely representing gallstones. Pancreas: There is fatty infiltration of the pancreas, consistent with atrophy. Spleen: A few splenules are identified. No splenomegaly. Adrenals: No mass. Kidneys and ureters: Unremarkable as visualized. No hydronephrosis. Stomach and bowel: Evaluation of bowel is limited by the absence of oral contrast. A small umbilical hernia is identified. A small portion of small bowel extends into this hernia. No bowel obstruction. Appendix: No evidence of appendicitis. Intraperitoneal space: No free air. No significant fluid collection. Vasculature: There is atherosclerotic calcification of the abdominal aorta and iliac arteries. A retroaortic left renal vein is visualized. Lymph nodes: Inguinal lymph nodes are identified bilaterally, some which are enlarged. A left inguinal lymph node measures 3.2 cm in length. A few mildly enlarged intrapelvic lymph nodes are also identified. Bladder: Unremarkable as visualized. Reproductive: See Soft Tissues Finding. Bones/joints: Grade 1/2 anterolisthesis of L5 on S1. Hypertrophic degenerative changes are noted within the spine. Soft tissues: There is significant soft tissue swelling of the perineum with multiple foci of gas. These findings extend to the left inguinal region. Scrotal swelling is also visualized. 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 IMPRESSION: 1. There is significant soft tissue swelling of the perineum with multiple foci of gas. These findings extend to the left inguinal region. Scrotal swelling is also visualized. 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 2. Fatty infiltration of the liver. 3. Cholelithiasis. 4. Small umbilical hernia containing small bowel. 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 The patient had a temperature of 100.7, lactic acid of 4.4. He was given a liter of fluid bolus and started on clindamycin and vancomycin. Ultrasound of the scrotum on 11/18/2019 showed infectious versus inflammation and absence of trauma. microlithiasis, bilateral epididymal cysts, small intratesticular cyst or tunica albuginea cyst measuring 0.3 x 0[address] of abdomen and pelvis on 11/18/2019 shows Dulce's gangrene with significant soft tissue swelling of the perineum with multiple foci of gas extending into the left inguinal region, scrotal swelling visualized, consistent with necrotizing infection. Fatty liver, cholelithiasis, small umbilical hernia containing small bowel and inguinal lymph nodes identified bilaterally which are enlarged, grade 1-2 anterolisthesis of L5 on S1. Urology was consulted and patient was given vancomycin and Zosyn and underwent incision, drainage and debridement of the left inguinal region, external scrotal area and perineum on 11/18/2019 with urologist, Dr. Arcelia Brown, and general surgery, Dr. Vaca. Microbiology grew out group F Strep and anaerobic culture is still pending. Infectious disease specialist, Dr. Heriberto Flowers, was consulted and recommended discontinuation of vancomycin and to continue Zosyn. The patient has been afebrile with white count and CRP trending downwards. Urology to continue to assess for debridement. The patient has been kept nothing by mouth overnight for wound debridement in the operating room and dressing change. ACTIVE ISSUES: 1. Dulce's gangrene of the left groin, status post debridement by Dr. Arcelia Brown, and general surgeon Dr. Vaca. The patient was initially treated with clindamycin and vancomycin and then given vancomycin and Zosyn. Zosyn now is continued. Vancomycin discontinued yesterday. Defer to urology for further debridement and dressing changes in the OR today. The patient has been kept nothing by mouth overnight. 2. Influenza. Patient completed Tamiflu 75 mg twice a day. 3. Super morbid obesity. BMI of 59.9 with history of obstructive sleep apnea. Obstructive sleep apnea protocol. Patient is currently on IV Dilaudid for breakthrough pain and at risk of obesity hypoventilation and hypercapnic respiratory failure. The patient was instructed to bring his C-PAP from home in to resume home settings while in the hospital on pain medications. 4. History of CAD with [place] in the past. He is on aspirin, which has not been discontinued. Lipitor and Coreg. Blood pressure is slightly elevated due to severe pain and normalizes down to 130 to 114 once the pain is controlled. Continue with current dose of medications. 5. Hypertension. Controlled on Coreg. 114 once pain is stable. Once the pain is elevated, blood pressure jumps up to 150. 6. Hyperlipidemia. On chronic statins. DISPOSITION: Patient is nothing by mouth and going to the operating room today for further debridement of Dulce's gangrene of the left groin managed by urology. JEFF
[2019-11-22 13:36] LABS: BLOOD UREA NITROGEN 11 MG/DL (7-18); CALCIUM LEVEL 7.8 MG/DL (8.8-10.2); CARBON DIOXIDE LEVEL 28 MEQ/L (21-32); CHLORIDE LEVEL 104 MEQ/L (98-107); CREATININE FOR GFR 0.76 MG/DL (0.70-1.30); GLOMERULAR FILTRATION RATE > 60.0 (>49); GLUCOSE, FASTING 90 MG/DL (70-100); POTASSIUM SERUM 3.3 MEQ/L (3.5-5.1); SODIUM LEVEL 138 MEQ/L (136-145)
[2019-11-22] MEDS ORDERED: BUPIVACAINE HCL 0.25% 30ML VIAL As Ordered ONE (13:41)
[2019-11-22] MEDS ORDERED: ROCURONIUM BROMIDE 50 MG/5 ML VIAL As Ordered ONE (14:06)
[2019-11-22] MEDS ORDERED: fentaNYL 250 MCG/5 ML INJECTION (J3010) As Ordered ONE (14:06)
[2019-11-22] MEDS ORDERED: LIDOCAINE 2% INJ 100 MG/5 ML SDV (FOR ANES.) As Ordered ONE (14:06)
[2019-11-22] MEDS ORDERED: propofoL 200 MG/20 ML VIAL As Ordered ONE (14:06)
[2019-11-22] MEDS ORDERED: MIDAZOLAM INJ 2 MG/2 ML VIAL (J2250) As Ordered ONE (14:07)
[2019-11-22] MEDS ORDERED: fentaNYL 100 MCG/2 ML INJECTION (J3010) As Ordered ONE (14:08)
[2019-11-22] MEDS ORDERED: KETOROLAC 60 MG/2 ML VIAL (J1885) As Ordered ONE (14:52)
[2019-11-22] MEDS ORDERED: dexameTHASONE 4 MG/ML 1ML VIAL (J1100) As Ordered ONE (14:52)
[2019-11-22] MEDS ORDERED: ONDANSETRON 4MG/2ML VIAL (J2405) As Ordered ONE (14:52)
--- NOTE | 2019-11-22 15:26 | ROOPDOC ---
[facility] Report Of Operation Report of Operation DATE OF PROCEDURE: 11/22/19 PREPROCEDURE DIAGNOSES: [Dulce's Gangrene]. POSTPROCEDURE DIAGNOSES: [same]. PROCEDURE: [Wound exploration and debridgement]. SURGEON: [Jaclyn Castro], ELECTRICIAN MARINE: [none], MD ANESTHESIA: [gen]. ESTIMATED BLOOD LOSS: Approximately [50] mL. COMPLICATIONS: [none]. REMARKS: [none]. PROCEDURE NOTE: [Scrotal debridgement]. DESCRIPTION OF PROCEDURE: [ Informed consent To Or with general anesthesia and sterile prep and drape after removal of previous dressing Exploration and probing of all wounds with drainage of small amount or pus. Sharp debridgement of necrotic tissue - primarily in the dependent scrotum. Hemostasis with direct pressure. The procedure was concluded by packing the groin to scrotal wound with saline soaked Kerlix gauze and the inguinal wound with a 4X4. Dry dressing over packing and the pt went to recovery in stable condition. The patient tolerated the procedure well. JACLYN CASTRO MD Nov 22, 2019 15:26
[2019-11-22] MEDS ORDERED: LR 1,000 ML IV SCH (16:00)
[2019-11-22] MEDS ORDERED: fentaNYL 100 MCG/2 ML INJECTION (J3010) IV PRN (16:00)
[2019-11-22] MEDS ORDERED: PERCOCET 5MG/325MG TAB PO PRN (16:00)
--- NOTE | 2019-11-22 20:33 | RO ---
DATE OF PROCEDURE: 11/22/2019 PREPROCEDURE DIAGNOSIS: Dulce's gangrene. POSTPROCEDURE DIAGNOSIS: Dulce's gangrene PROCEDURE PERFORMED: Scrotal exploration and debridement. SURGEON: Paulo Castro MD [employer] SUPERVISOR: ANESTHESIA: General. ESTIMATED BLOOD LOSS: 50 mL. COMPLICATIONS: None. INDICATION: This 64-year-old man presented with necrotizing wound in his left hemiscrotum and groin. He underwent exploration and debridement by Dr. Brown on 11/18/2019 and now comes for a second stage exploration and debridement. DESCRIPTION OF PROCEDURE: After obtaining informed consent with the patient, he was taken to the operating room and underwent general anesthetic. He was prepped and draped in the usual manner. With the patient in lithotomy position, the dressings were removed prior to prep. The wound was thoroughly explored and probed. THere was noted to be necrotic tissue remaining in the dependent portion of the scrotum. There was also a small area of purulence in the lateral scrotal area that was entered with sharp and blunt dissection. All the wounds were thoroughly probed. We then used sharp dissection with Austin scissors to trim away all nonviable tissue. Dissection was conducted to bleeding tissue all about. Hemostasis was obtained with direct pressure. The wound was then thoroughly irrigated with saline. Kerlix gauze was used to pack the larger wound that extends from the left hemiscrotum to the groin. A 4 x 4 was used to pack the suprapubic inguinal wound on the left. A dry pack was placed over the wound and the patient was transferred to recovery in satisfactory condition. Sponge and needle counts correct times two. The patient is to continue on inpatient service. In another day or two he may be a candidate for wound Vac placement.
[2019-11-23 02:00] VITALS: BP 131/75
[2019-11-23 06:00] VITALS: BP 146/85
[2019-11-23] MEDS: PIPERACILLIN/TAZOBACTAM SOD 3.375 GM in D5W MINI-BAG PLUS 50 ML IV SCH ×3 (06:11→18:05)
[2019-11-23 06:33] LABS: HEMATOCRIT 39.5 % (42.0-52.0); HEMOGLOBIN 13.1 g/dl (13.5-17.5); MEAN CORPUSCULAR HEMOGLOBIN 31.2 pg (27.0-33.0); MEAN CORPUSCULAR HGB CONC 33.2 g/dl (32.0-36.5); PLATELET COUNT, AUTOMATED 216 10^3/uL (150-450); WHITE BLOOD COUNT 15.1 10^3/uL (4.0-10.0)
[2019-11-23 06:57] LABS: BLOOD UREA NITROGEN 17 MG/DL (7-18); CALCIUM LEVEL 7.8 MG/DL (8.8-10.2); CARBON DIOXIDE LEVEL 29 MEQ/L (21-32); CHLORIDE LEVEL 106 MEQ/L (98-107); CREATININE FOR GFR 0.86 MG/DL (0.70-1.30); GLOMERULAR FILTRATION RATE > 60.0 (>49); GLUCOSE, FASTING 131 MG/DL (70-100); SODIUM LEVEL 140 MEQ/L (136-145)
[2019-11-23 07:01] LABS: LYMPHOCYTES 7 % (16-44); METAMYELOCYTES 2 % (0-0); MONOCYTES 8 % (0-5); NEUTROPHILS 81 % (28-66)
[2019-11-23 07:02] LABS: PLATELET ESTIMATE NORMAL (NORMAL)
[2019-11-23] MEDS: SODIUM CHLORIDE 0.9% NASAL GEL 15GM (AYR) SCH ×4 (08:28→20:51)
[2019-11-23] MEDS: ATORVASTATIN 20 MG TAB PO SCH (08:28)
[2019-11-23] MEDS: ASPIRIN 81 MG ENTERIC TAB PO SCH (08:28)
[2019-11-23] MEDS: CARVedilol 6.25 MG TAB PO SCH ×2 (08:28→20:51)
[2019-11-23] MEDS: HEPARIN SOD (PORCINE) 5000 UNITS/ML VIAL (J1644 PER 1000UNITS) SQ SCH ×2 (09:53→20:51)
[2019-11-23] MEDS: HYDROMORPHONE HCL 0.5 MG/ 0.5 ML SYRINGE (J1170 PER 1) IV PRN (09:59)
[2019-11-23 10:00] VITALS: BP 133/69
[2019-11-23 14:00] VITALS: BP 143/66
--- NOTE | 2019-11-23 14:09 | IPN ---
DATE: 11/23/2019 The patient is afebrile with no chills. Underwent surgical debridement of Dulce gangrene yesterday. The patient says pain is 0/10 when he is laying in bed not doing much. When dressing changes are made, he usually receives his Percocet, which is currently adequate. He is currently using his CPAP. Nocturnal pulse ox was kept due to obstructive sleep apnea protocol due to increased risk of hypercapnia due to use of Dilaudid, morbid obesity, BMI 59.9. Patient said that he had to turn it off yesterday as he was unable to sleep that it was beeping all night long but he realized that it kept on beeping once he removed it. Vital signs: Temperature 98.1, pulse 64, respiratory rate 17, blood pressure 133/69, 96% on room air. Generally, patient is morbidly obese, thick neck, unable to assess for jugular venous distention (JVD). No thyromegaly. No stridor. Able to speak in full sentences. Lungs are clear to auscultation. No wheezing, rales or rhonchi. Heart: S1, S2, distant heart sounds but regular rate and rhythm. Abdomen is obese with significant abdominal pannus. Soft, nontender. Positive bowel sounds. Times four quadrants. Patient has chronic 1+ pitting edema. He does have scrotal edema. No crepitus. Patient has serous drainage of left groin with a clean dressing. No signs of purulent or malodorous drainage. LABORATORY DATA: Microbiology imaging studies have been reviewed. ASSESSMENT/PLAN: This is a 64-year-old male with morbid obesity, BMI 59.9, obstructive sleep apnea, coronary artery disease, previous myocardial infarction ([place]), hypertension, hyperlipidemia presented with recurrent fevers diagnoses with the flu treated with 5 days of Tamiflu. Had a maximum temperature (T-max) of 100.7, presented with scrotal edema and pain. Was found to have a lactic acid of 4.4, hypotension, was given a liter of IV bolus, started on Clindamycin and vancomycin. Ultrasound of his scrotum on 11/18/2019 showed infectious versus inflammation in the absence of trauma, microlithiasis, bilateral epididymal cysts. CT abdomen shows Dulce gangrene with significant soft tissue swelling of the perineum with multiple foci of gas extending into the left inguinal region with scrotal swelling consistent with Dulce's gangrene. Urology was consulted. Patient was given IV vancomycin and Zosyn. Patient underwent incision and drainage, debridement of left inguinal area by Dr. Brown and general surgery Dr. Vaca 10/20/2019. Microbiology grew out group as Strep anerobic cultures are pending. Infectious disease (ID), Dr. Flowers discontinued vancomycin. Patient is currently continued on Zosyn with CRP and white count decreasing. Urology re-debrided yesterday on 11/22/2019. Still afebrile with white count slightly increased to 15.1. Patient did receive pain medications for pain control. We are currently awaiting approval for wound VAC and will defer to ID for further antibiotic needs. 1. Dulce's gangrene of the left groin status post debridement on admission. Re-debridement on 11/21/2019. Currently on IV Zosyn managed by infectious disease specialist awaiting wound VAC. 2. Influenza completed Tamiflu for 5 days. 3. Morbid obesity 59.9 with sleep apnea currently on obstructive sleep apnea protocol due to current need for IV Dilaudid and risk of hypercapnic respiratory failure. 4. History of coronary artery disease and [place] on Lipitor and Coreg. Hypertension is stable on Coreg. 5. Hyperlipidemia: On statin. DISPOSITION: Await wound VAC placement. Decision for IV versus oral antibiotics for outpatient. [facility] ([facility]) has been consulted. JEFF
[2019-11-23 18:00] VITALS: BP 143/68
[2019-11-23 22:00] VITALS: BP 146/70
[2019-11-24] MEDS: PIPERACILLIN/TAZOBACTAM SOD 3.375 GM in D5W MINI-BAG PLUS 50 ML IV SCH ×3 (00:17→12:35)
[2019-11-24 05:57] LABS: HEMATOCRIT 38.7 % (42.0-52.0); HEMOGLOBIN 12.5 g/dl (13.5-17.5); MEAN CORPUSCULAR HEMOGLOBIN 30.5 pg (27.0-33.0); MEAN CORPUSCULAR HGB CONC 32.3 g/dl (32.0-36.5); MEAN CORPUSCULAR VOLUME 94.4 fl (80.0-96.0); PLATELET COUNT, AUTOMATED 249 10^3/uL (150-450); WHITE BLOOD COUNT 11.9 10^3/uL (4.0-10.0)
[2019-11-24 06:00] VITALS: BP 152/73
[2019-11-24 06:15] LABS: BLOOD UREA NITROGEN 20 MG/DL (7-18); CALCIUM LEVEL 7.9 MG/DL (8.8-10.2); CARBON DIOXIDE LEVEL 30 MEQ/L (21-32); CHLORIDE LEVEL 107 MEQ/L (98-107); CREATININE FOR GFR 0.95 MG/DL (0.70-1.30); GLOMERULAR FILTRATION RATE > 60.0 (>49); GLUCOSE, FASTING 131 MG/DL (70-100); POTASSIUM SERUM 3.3 MEQ/L (3.5-5.1); SODIUM LEVEL 142 MEQ/L (136-145)
[2019-11-24 06:26] LABS: EOSINOPHILS 2 % (0-3); LYMPHOCYTES 21 % (16-44); METAMYELOCYTES 1 % (0-0); MONOCYTES 6 % (0-5); MYELOCYTES 1 % (0-0); NEUTROPHILS 67 % (28-66); PLATELET ESTIMATE NORMAL (NORMAL)
[2019-11-24] MEDS ORDERED: POTASSIUM CHLORIDE 10 MEQ SR TABLET PO ONE (08:00)
[2019-11-24] MEDS: ATORVASTATIN 20 MG TAB PO SCH (08:55)
[2019-11-24] MEDS: ASPIRIN 81 MG ENTERIC TAB PO SCH (08:55)
[2019-11-24] MEDS: HEPARIN SOD (PORCINE) 5000 UNITS/ML VIAL (J1644 PER 1000UNITS) SQ SCH ×2 (08:56→21:04)
[2019-11-24] MEDS: CARVedilol 6.25 MG TAB PO SCH ×2 (08:56→21:04)
[2019-11-24] MEDS: SODIUM CHLORIDE 0.9% NASAL GEL 15GM (AYR) SCH ×4 (09:00→21:00)
[2019-11-24] MEDS: HYDROMORPHONE HCL 0.5 MG/ 0.5 ML SYRINGE (J1170 PER 1) IV PRN ×2 (10:13→14:02)
--- NOTE | 2019-11-24 12:50 | IPNPDOC ---
Date Seen The patient was seen on 11/24/19. Progress Note SUBJECTIVE: Pt is anxious to go home. no pain right now. 4/10 pain with dressing changes which is tolerable with iv dilaudid. requested continuous pulse ox to be discontinued and refuses to wear bipap. "I'm alright. I can wear oxygen at night." He claims that he can't sleep at night because the pulse ox keeps on beeping, but refuses to wear his cpap in the hospital. He says he got up by himself yesterday and ambulated 4x around the floor without any pain. "I want to go home." No fever or chills overnight. no purulent drainage from left groin, but continues to have serous drainage. OBJECTIVE: PHYSICAL EXAMINATION: VITALS: PLS SEE BELOW GENERAL: The patient is awake, alert, oriented, answering questions appropriately. Face is symmetric. Tongue is midline. Thick neck. No jugular venous distention (JVD). no stridor. no conversational dyspnea LUNGS: Clear. No wheezing or rales. AEBE HEART: S1, S2. Sinus. nondisplaced PMI ABDOMEN: Obese, soft, nontender. EXTREMITIES: Chronic edema 1+. skin warm dry well perfused. GENITOURINARY: The patient has scrotal edema, no crepitus. The patient has serous drainage left groin with a clean dressing and no purulence. No odor. LABORATORY DATA. MICROBIOLOGY, IMAGING STUDIES: REVIEWED, PLS SEE BELOW PROCEDURE INFORMATION: Exam: CT Abdomen And Pelvis With Contrast Exam date and time: 11/18/2019 9:19 PM Age: 64 years old Clinical indication: Mass, lump, or swelling; Lower; Abdominal pain; Localized; Additional info: Pelvic swelling/pain; R/O abscess TECHNIQUE: Imaging protocol: Computed tomography of the abdomen and pelvis with intravenous contrast. Radiation optimization: All CT scans at this facility use at least one of these dose optimization techniques: automated exposure control; mA and/or kV adjustment per patient size (includes targeted exams where dose is matched to clinical indication); or iterative reconstruction. Contrast material: ISOVUE 370; Contrast volume: 100 ml; Contrast route: IV; COMPARISON: No relevant prior studies available. FINDINGS: Liver: There is hypodense fatty infiltration of the liver. Gallbladder and bile ducts: Dependent hyperdensity is identified within the gallbladder, likely representing gallstones. Pancreas: There is fatty infiltration of the pancreas, consistent with atrophy. Spleen: A few splenules are identified. No splenomegaly. Adrenals: No mass. Kidneys and ureters: Unremarkable as visualized. No hydronephrosis. Stomach and bowel: Evaluation of bowel is limited by the absence of oral contrast. A small umbilical hernia is identified. A small portion of small bowel extends into this hernia. No bowel obstruction. Appendix: No evidence of appendicitis. Intraperitoneal space: No free air. No significant fluid collection. Vasculature: There is atherosclerotic calcification of the abdominal aorta and iliac arteries. A retroaortic left renal vein is visualized. Lymph nodes: Inguinal lymph nodes are identified bilaterally, some which are enlarged. A left inguinal lymph node measures 3.2 cm in length. A few mildly enlarged intrapelvic lymph nodes are also identified. Bladder: Unremarkable as visualized. Reproductive: See Soft Tissues Finding. Bones/joints: Grade 1/2 anterolisthesis of L5 on S1. Hypertrophic degenerative changes are noted within the spine. Soft tissues: There is significant soft tissue swelling of the perineum with multiple foci of gas. These findings extend to the left inguinal region. Scrotal swelling is also visualized. 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 IMPRESSION: 1. There is significant soft tissue swelling of the perineum with multiple foci of gas. These findings extend to the left inguinal region. Scrotal swelling is also visualized. 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 2. Fatty infiltration of the liver. 3. Cholelithiasis. 4. Small umbilical hernia containing small bowel. 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 The patient had a temperature of 100.7, lactic acid of 4.4. He was given a liter of fluid bolus and started on clindamycin and vancomycin. Ultrasound of the scrotum on 11/18/2019 showed infectious versus inflammation and absence of trauma. microlithiasis, bilateral epididymal cysts, small intratesticular cyst or tunica albuginea cyst measuring 0.3 x 0.[address] of abdomen and pelvis on 11/18/2019 shows Dulce's gangrene with significant soft tissue swelling of the perineum with multiple foci of gas extending into the left inguinal region, scrotal swelling visualized, consistent with necrotizing infection. Fatty liver, cholelithiasis, small umbilical hernia containing small bowel and inguinal lymph nodes identified bilaterally which are enlarged, grade 1-2 anterolisthesis of L5 on S1. Urology was consulted and patient was given vancomycin and Zosyn and underwent incision, drainage and debridement of the left inguinal region, external scrotal area and perineum on 11/18/2019 with urologist, Dr. Arcelia Brown, and general surgery, Dr. Vaca. Microbiology grew out group F Strep and anaerobic culture is still pending. Infectious disease specialist, Dr. Heriberto Flowers, was consulted and recommended discontinuation of vancomycin and to continue Zosyn. The patient has been afebrile with white count and CRP trending downwards. Patient underwent surgical debridement and dressing change by Urologist Dr. Castro on 11/22/19 with plans for wound vac. PFS consulted. ACTIVE ISSUES: 1. Dulce's gangrene of the left groin, status post debridement by Dr. Arcelia Brown, and general surgeon Dr. Vaca. The patient was initially treated with clindamycin and vancomycin and then given vancomycin and Zosyn. Zosyn now is continued. wound vac to be arranged. PFS consulted for assistance and home care referral . once wound vac is in place, pt is to be taught keys care at home, and antibiotics to be finalized by ID. 2. Influenza. Patient completed Tamiflu 75 mg twice a day. 3. Super morbid obesity. BMI of 59.9 with history of obstructive sleep apnea. Pt requested Obstructive sleep apnea protocol to be discontinued due to continued beeping of continuous pulse ox. Patient is currently on IV Dilaudid for breakthrough pain and at risk of obesity hypoventilation and hypercapnic respiratory failure. The patient was instructed to bring his C-PAP from home in to resume home settings while in the hospital on pain medications., but refuses to be compliant with cpap. "I'm not doing it, " despite risk of hypercarbia. 4. History of CAD with [place] in the past. He is on aspirin, which has not been discontinued. Lipitor and Coreg. 5. Hypertension. Controlled on Coreg. 6. Hyperlipidemia. On chronic statins. Disposition: awaiting wound vac, home care referral. once wound vac is placed, ID to finalize antibiotic regimen, and pt may then be dc home with home health care referral. VS, I&O, 24H, Fishbone Vital Signs/I&O Vital Signs Date Time Temp Pulse Resp B/P (MAP) Pulse Ox O2 Delivery O2 Flow Rate FiO2 11/24/19 10:23 18 Room Air 11/24/19 08:56 64 152/73 11/24/19 06:00 98.6 94 11/22/19 18:25 2.0 11/19/19 02:00 40 I&O- Last 24 Hours up to 6 AM 11/24/19 06:03 Intake Total 2200 ml Output Total 1600 ml Balance 600 ml Laboratory Data 24H LABS Laboratory Tests 2 11/24/19 05:43: Immature Granulocyte % (Auto) , Neutrophils (%) (Auto) , Nucleated Red Blood Cells % (auto) 0.0, Neutrophils 67H, Band Neutrophils 2, Lymphocytes (Manual) 21, Monocytes (Manual) 6H, Eosinophils (Manual) 2, Metamyelocytes 1H, Myelocytes 1H, Red Blood Cell Morphology NORMAL, Platelet Estimate NORMAL, Anion Gap 5L, Glomerular Filtration Rate > 60.0, Calcium Level 7.9L CBC/BMP Laboratory Tests 11/24/19 05:43 Microbiology Microbiology 11/19/19 Gram Stain - Final, Complete 11/19/19 Abscess Culture - Final, Complete Strep (Group F) Constellatus Granulicatella Adiacens 11/19/19 Anaerobic Culture - Final, Complete Anaerobic Cocci 11/18/19 Blood Culture - Final, Complete NO GROWTH AFTER 5 DAYS 11/18/19 Blood Culture - Final, Complete NO GROWTH AFTER 5 DAYS DEMETRIS BRYANT MD Nov 24, 2019 12:43
[2019-11-24 14:00] VITALS: BP 132/76
--- NOTE | 2019-11-24 15:00 | IPNPDOC ---
Subjective Review oF Systems Chief Complaint The patient is a 64-year-old male admitted with a reason for visit of Dulce Gangrene. Events since Last Encounter No acute events o/n. Patient notes his pain is getting better w/ dressing changes. No f/c/ns. Objective Physical Examination General Exam: Alert, Cooperative, No Acute Distress Heart Exam: Positive: Rate Normal ABDOMEN EXAM: Other (dressings removed from L groin - tissue links beefy red and healthy w/ no active drainage; surrouding skin is healthy; penis and scrotum are edematous but nontender and w/o crepitus) Vital Signs/I&O Vital Signs Date Time Temp Pulse Resp B/P (MAP) Pulse Ox O2 Delivery O2 Flow Rate FiO2 11/24/19 14:02 18 Room Air 11/24/19 14:00 98.4 53 132/76 (94) 93 11/22/19 18:25 2.0 11/19/19 02:00 40 I&O- Last 24 Hours up to 6 AM 11/24/19 05:59 Intake Total 2100 ml Output Total 1350 ml Balance 750 ml Laboratory Data Labs 24H Laboratory Tests 2 11/24/19 05:43: Immature Granulocyte % (Auto) , Neutrophils (%) (Auto) , Nucleated Red Blood Cells % (auto) 0.0, Neutrophils 67H, Band Neutrophils 2, Lymphocytes (Manual) 21, Monocytes (Manual) 6H, Eosinophils (Manual) 2, Metamyelocytes 1H, Myelocytes 1H, Red Blood Cell Morphology NORMAL, Platelet Estimate NORMAL, Anion Gap 5L, Glomerular Filtration Rate > 60.0, Calcium Level 7.9L CBC/BMP Laboratory Tests 11/24/19 05:43 Microbiology Microbiology 11/19/19 Gram Stain - Final, Complete 11/19/19 Abscess Culture - Final, Complete Strep (Group F) Constellatus Granulicatella Adiacens 11/19/19 Anaerobic Culture - Final, Complete Anaerobic Cocci 11/18/19 Blood Culture - Final, Complete NO GROWTH AFTER 5 DAYS 11/18/19 Blood Culture - Final, Complete NO GROWTH AFTER 5 DAYS Assessment/Plan Date Seen The patient was seen on 11/24/19. 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 Cultures growing strep and granulicatella adiacens. WBC trending down. Afebril e. We attempted to place a wound vac today but due to the location of the wound in his groin crease, this was not possible. Problems (1) Dulce gangrene Status: Acute Plan/VTE VTE Prophylaxis Ordered?: Yes VTE Exclusion Mechanical Proph: N/A:VTE Prophy Ordered Plan/Urinary Catheter Reason for insertion/continuin: Assist wound healing Plan - continue catheter to gravity drainage - plan to transition to moxifloxacin per ID - continue wet-to-dry dressing changes daily - attempted to touch base w/ Dr. Panda re wound care but out of office today - will need to touch base on Wednesday - patient is ready for discharge home - once C is set up, patient will go home w/ wet to dry dressing changes daily (unless advised otherwise by Dr. Panda) and w/ his catheter in place - will continue to follow Diet: MISAEL Dickens MD Nov 24, 2019 15:00
[2019-11-24] MEDS: MOXIFLOXACIN 400 MG TAB PO SCH (16:25)
--- NOTE | 2019-11-24 20:19 | IPN ---
DATE: 11/24/2019 Mr. Bolton seems to be doing better. He states his pain has markedly improved as well as the swelling. He did not want me to examine the wound as Dr. Beatty was coming to examine it and place a wound vacuum-assisted closure (VAC). There is still a significant amount of drainage from the left groin. He was going to have a wound VAC placed this afternoon and going home with a wound VAC. LABORATORY DATA: White count is 11.9, hemoglobin 12.5, hematocrit 38.7, platelets 249, 67% neutrophils, 2% leukocytes, 21% lymphocytes, 6% monocytes. Sodium 142, potassium 3.3, chloride 107, bicarbonate 30, BUN 20, creatinine 0.95, glucose 131, calcium 7.9, CRP on the 11/20/2019 was 12.8. Wound culture had Streptococcus group F constellatus, granulitecella and anaerobic cocci. The group F Streptococcus constellatus is intermediate to ceftriaxone and penicillin. PHYSICAL EXAMINATION: Temperature is 98.4, pulse 53, respirations 17, blood pressure 132/76, oxygen saturation 93% on room air. HEART: Normal S1, S2. No murmurs, rubs or gallops. LUNGS: Diminished but clear. ABDOMEN: Morbidly obese, soft, nontender. Left groin: Decreased swelling but the wound is deep and there is still significant yellowish discharge on the ABD pad. I was not able to see the whole wound which is very deep and wide, measuring over 20 cm. IMPRESSION: Dulce's gangrene, polymicrobial ramo, on IV Zosyn, status post two debridements. We will switch to moxifloxacin 400 mg by mouth daily for at least two weeks. Wound vacuum-assisted closure (VAC) will be started today. PLAN: Discontinue IV Zosyn and switch to moxifloxacin PO 400 mg daily. Repeat laboratories once a week on discharge. [facility]
[2019-11-24 22:00] VITALS: BP 148/69
[2019-11-25 06:00] VITALS: BP 159/73
[2019-11-25 06:50] LABS: BLOOD UREA NITROGEN 17 MG/DL (7-18); C REACTIVE PROTEIN QUANTITATIV 2.85 MG/DL (0.00-0.30); CALCIUM LEVEL 8.3 MG/DL (8.8-10.2); CARBON DIOXIDE LEVEL 31 MEQ/L (21-32); CHLORIDE LEVEL 106 MEQ/L (98-107); CREATININE FOR GFR 0.85 MG/DL (0.70-1.30); GLOMERULAR FILTRATION RATE > 60.0 (>49); GLUCOSE, FASTING 105 MG/DL (70-100); POTASSIUM SERUM 3.5 MEQ/L (3.5-5.1); SODIUM LEVEL 138 MEQ/L (136-145)
[2019-11-25 06:54] LABS: HEMOGLOBIN 12.6 g/dl (13.5-17.5); MEAN CORPUSCULAR HEMOGLOBIN 30.4 pg (27.0-33.0); MEAN CORPUSCULAR HGB CONC 32.3 g/dl (32.0-36.5); MEAN CORPUSCULAR VOLUME 94.2 fl (80.0-96.0); PLATELET COUNT, AUTOMATED 267 10^3/uL (150-450); RED BLOOD COUNT 4.14 10^6/uL (4.30-6.10); WHITE BLOOD COUNT 10.6 10^3/uL (4.0-10.0)
[2019-11-25] MEDS ORDERED: MOXI400T11 PO (07:28)
[2019-11-25] MEDS ORDERED: BACITAB PO (07:28)
[2019-11-25 07:32] LABS: ATYPICAL LYMPH 2 % (0-5); EOSINOPHILS 2 % (0-3); LYMPHOCYTES 21 % (16-44); MONOCYTES 6 % (0-5); MYELOCYTES 2 % (0-0); NEUTROPHILS 64 % (28-66); PLATELET ESTIMATE NORMAL (NORMAL)
[2019-11-25 07:34] LABS: ANISOCYTOSIS 1+
--- NOTE | 2019-11-25 07:47 | IPNPDOC ---
Date Seen The patient was seen on 11/25/19. Progress Note [employer] DENIAL PLAN: LEVAQUIN 750 MG DAILY SUBSTITUTED. VS, I&O, 24H, Fishbone Vital Signs/I&O Vital Signs Date Time Temp Pulse Resp B/P (MAP) Pulse Ox O2 Delivery O2 Flow Rate FiO2 11/25/19 06:00 97.9 57 20 159/73 (101) 94 Room Air 11/22/19 18:25 2.0 11/19/19 02:00 40 I&O- Last 24 Hours up to 6 AM 11/25/19 06:00 Intake Total 2170 ml Output Total 2050 ml Balance 120 ml Laboratory Data 24H LABS Laboratory Tests 2 11/25/19 06:02: Immature Granulocyte % (Auto) , Neutrophils (%) (Auto) , Nucleated Red Blood Cells % (auto) 0.0, Neutrophils 64, Band Neutrophils 3, Lymphocytes (Manual) 21, Monocytes (Manual) 6H, Eosinophils (Manual) 2, Myelocytes 2H, Atypical Lymphocytes 2, Anisocytosis 1+, Platelet Estimate NORMAL, Anion Gap 1L, Glomerular Filtration Rate > 60.0, Calcium Level 8.3L, C-Reactive Protein, Quantitative 2.85H CBC/BMP Laboratory Tests 11/25/19 06:02 Microbiology Microbiology 11/19/19 Gram Stain - Final, Complete 11/19/19 Abscess Culture - Final, Complete Strep (Group F) Constellatus Granulicatella Adiacens 11/19/19 Anaerobic Culture - Final, Complete Anaerobic Cocci 11/18/19 Blood Culture - Final, Complete NO GROWTH AFTER 5 DAYS 11/18/19 Blood Culture - Final, Complete NO GROWTH AFTER 5 DAYS DEMETRIS BRYANT MD Nov 25, 2019 07:47
[2019-11-25] MEDS: SODIUM CHLORIDE 0.9% NASAL GEL 15GM (AYR) SCH ×4 (09:00→20:44)
[2019-11-25] MEDS: CARVedilol 6.25 MG TAB PO SCH ×2 (09:20→20:44)
[2019-11-25] MEDS: ATORVASTATIN 20 MG TAB PO SCH (09:21)
[2019-11-25] MEDS: ASPIRIN 81 MG ENTERIC TAB PO SCH (09:21)
[2019-11-25] MEDS: HEPARIN SOD (PORCINE) 5000 UNITS/ML VIAL (J1644 PER 1000UNITS) SQ SCH ×2 (09:21→20:43)
[2019-11-25] MEDS: PERCOCET 5MG/325MG TAB PO PRN (10:37)
--- NOTE | 2019-11-25 10:43 | IPNPDOC ---
Subjective Review oF Systems Chief Complaint The patient is a 64-year-old male admitted with a reason for visit of Dulce Gangrene. Events since Last Encounter No complaints. Walking. Less pain now with dressing changes General: Denies: ROS Unobtainable, Chills, Night Sweats, Fatigue, Malaise, Normal Appetite, Other Symptoms Constitutional: Denies: Fever, Chills, Sweats, Weakness, Malaise, Other Eyes: Denies: Pain, Vision change ENT: Denies: Head Aches, Sore Throat, Epistaxis Pulmonary: Denies: Dyspnea, Cough Cardiovascular: Denies Chest Pain, Denies Palpitations Gastrointestinal: Denies: Nausea, Vomiting, Abdominal Pain Hematologic: Denies: Bruising, Bleeding Excessively Neurological: Denies: Weakness, Numbness, Incoordination, Change in Speech Psych: Reports: Mood Normal; Denies: Anxiety, Depression Objective Physical Examination General Exam: Alert, Cooperative, No Acute Distress Eye Exam: PERRLA, Conjunctiva & lids normal, EOMI; No: Sclera icteric ENT EXAM: Atraumatic, Mucous membr. moist/pink, Pharynx Normal Neck Exam: Supple; No: JVD, thyromegaly Chest Exam: Clear to auscultation, Normal air movement Heart Exam: Positive: Rate Normal Telemetry: No significant arrhythmia ABDOMEN EXAM: Other (dressings removed from L groin - tissue links beefy red and healthy w/ no active drainage; surrouding skin is healthy; penis and scrotum are edematous but nontender and w/o crepitus) Male Exam: Normal Genital Exam, Lesions (Wound granulating. Min purulence on packing) Extremity Exam: Tenderness; No: Clubbing, Cyanosis, Edema Skin Exam: Nl turgor and temperature; No: Rash, Breakdown Neuro Exam: Normal Gait, Normal Speech, Cranial Nerves 3-12 NL, Reflexes 2+ Psych Exam: Mental status NL, Mood NL, Oriented x 3 Vital Signs/I&O Vital Signs Date Time Temp Pulse Resp B/P (MAP) Pulse Ox O2 Delivery O2 Flow Rate FiO2 11/25/19 10:37 20 11/25/19 09:20 57 159/73 11/25/19 06:00 97.9 94 Room Air 11/22/19 18:25 2.0 11/19/19 02:00 40 I&O- Last 24 Hours up to 6 AM 11/25/19 06:00 Intake Total 2170 ml Output Total 2050 ml Balance 120 ml Laboratory Data Labs 24H Laboratory Tests 2 11/25/19 06:02: Immature Granulocyte % (Auto) , Neutrophils (%) (Auto) , Nucleated Red Blood Cells % (auto) 0.0, Neutrophils 64, Band Neutrophils 3, Lymphocytes (Manual) 21, Monocytes (Manual) 6H, Eosinophils (Manual) 2, Myelocytes 2H, Atypical Lymphocytes 2, Anisocytosis 1+, Platelet Estimate NORMAL, Anion Gap 1L, Glomerular Filtration Rate > 60.0, Calcium Level 8.3L, C-Reactive Protein, Quantitative 2.85H CBC/BMP Laboratory Tests 11/25/19 06:02 Microbiology Microbiology 11/19/19 Gram Stain - Final, Complete 11/19/19 Abscess Culture - Final, Complete Strep (Group F) Constellatus Granulicatella Adiacens 11/19/19 Anaerobic Culture - Final, Complete Anaerobic Cocci 11/18/19 Blood Culture - Final, Complete NO GROWTH AFTER 5 DAYS 11/18/19 Blood Culture - Final, Complete NO GROWTH AFTER 5 DAYS Assessment/Plan Date Seen The patient was seen on 11/25/19. Patient Summary A: Dulce's gangrene- improving Problems (1) Dulce gangrene Status: Acute Plan/VTE VTE Prophylaxis Ordered?: Yes VTE Exclusion Mechanical Proph: N/A:VTE Prophy Ordered Plan/Urinary Catheter Reason for insertion/continuin: Assist wound healing Plan P: Cont wound care. Pt will need for wound care post d/c. Will need to be here this w/e and have ss arrange wound care f/u Wednesday for d/c. Diet: Make JACLYN ROBERTSON MD Nov 25, 2019 10:43
[2019-11-25 14:00] VITALS: BP 136/66
--- NOTE | 2019-11-25 14:10 | IPN ---
DATE: 11/25/2019 Yesterday patient had significant serous drainage at the left groin site and wound VAC could not be done. He is currently on wet-to-dry dressings. He was afebrile overnight. Patient is stable, has no pain when he walks around. He did ambulate yesterday independently. He says that his family can help, especially his , with dressing changes, and he is requesting to be discharged home. A home care referral is to be arranged. He does not need a wound VAC at this time. White count is decreasing to 10.6. He is currently on Avelox, does not need intravenous antibiotics as an outpatient. Temperature 97.9, pulse 57, respiratory rate 20, blood pressure 159/73, 94% on room air. Generally, patient is awake, alert, oriented times three, answering questions appropriately. Face is symmetric. Tongue is midline. Very thick neck. Lungs are clear to auscultation. No wheezing or rales. Heart: S1, S2, sinus. Abdomen is soft, nontender, nondistended. Positive bowel sounds. Extremities: Chronic trace to 1+ pitting edema. Patient continues to have serous drainage at the left incision site with scrotal edema and erythema. LABORATORY DATA: White count 10, hemoglobin 12, hematocrit 39, platelet count 267. Sodium 138, potassium 3.5, chloride 106, bicarbonate 31, BUN 17, creatinine 0.85, glucose of 105, calcium of 8.3. Groin Group F strep and anaerobic cocci. Blood culture negative. ASSESSMENT AND PLAN: This is a 64-year-old male admitted on 11/18/2019 with complaints of scrotal pain and swelling, recurrent fevers, diagnosed with the flu and treated with 5 days of Tamiflu, presented with a temperature of 100.7, lactic acid of 4.4, started on clindamycin and vancomycin. Ultrasound of the scrotum showed infectious versus inflammation in the absence of trauma. CT abdomen shows Dulce's gangrene. Patient underwent surgical debridement on 11/18/[address] Arcelia Brown, Urology, and General Surgeon, Dr. Vaca, with repeat debridement on 11/22/[address] Castro, Urologist. Due to inability to use the wound VAC secondary to significant serous drainage, the patient is currently on wet-to-dry dressings. He had been changed to vancomycin and Zosyn initially, and after infectious disease (ID) was consulted, vancomycin was discontinued. He was continued on Zosyn until yesterday. On 11/24/2019, he was switched over to Avelox. IMPRESSION: 1. Dulce's gangrene of the left groin, status post debridement on 11/18/2019 and repeat debridement on 11/22/2019 by urology. Previously on clindamycin and vancomycin, then vancomycin and Zosyn, then IV Zosyn and currently switched over to Avelox to complete at least 2 more weeks as an outpatient. Wound VAC could not be placed due to increased serous drainage. Per urology, wet-to-dry dressings would be adequate. Home care referral. Due to the Coronavirus quarantine, the patient's is unable to come into the hospital as a visitor to be taught about wet-to-dry dressing. Therefore, RN will have home care teach the at home about daily wet-to-dry dressings. He will need to continue his De Le[place] catheter to keep the area cleaned. He is ambulating well and otherwise stable for hospital discharge. 2. Influenza. Completed Tamiflu 75 mg twice a day. No recurrent symptoms. 3. Super morbid obesity with possible obesity hypoventilation syndrome. Patient refused obstructive sleep apnea (SERA) protocol and did not want to continue his pulse oximetry despite risk of hypercarbia and hypercapnic respiratory failure. Since he was placed on Dilaudid intravenously for breakthrough pain, the patient says that he has no pain currently since the second debridement and walks around independently without much discomfort. 4. Obstructive sleep apnea. On chronic continuous positive airway pressure (CPAP). Refused to wear CPAP during the hospital stay. Currently not requiring a significant amount of pain medication after the second surgical debridement. 5. History of coronary artery disease, myocardial infarction (MA) in the past. On Lipitor, Coreg and aspirin. 6. Hypertension. On chronic Coreg with episodes of sinus bradycardia, which is asymptomatic. 7. Hyperlipidemia. On chronic statin. DISPOSITION: Patient is medically stable for discharge home with home care. We are attempting to arrange home care for him for wet-to-dry dressings. He will need to complete at least 2 weeks of antibiotics, currently with recommendations for Avelox but prescription coverage was denied by his insurance for Avelox and has been switched to Levaquin 750 mg daily, 21 days have been dispensed and patient has been given Bacid to decrease risk of Clostridium difficile (C diff). MTDD
[2019-11-25] MEDS ORDERED: LEVA750T7 PO (16:08)
[2019-11-25] MEDS: MOXIFLOXACIN 400 MG TAB PO SCH (16:12)
[2019-11-26 06:00] VITALS: BP 151/79
[2019-11-26 06:44] LABS: BASO # 0.1 10^3/uL (0.0-0.2); BASO % 0.4 % (0.0-1.0); EOS # 0.3 10^3/uL (0.0-0.5); EOS % 2.1 % (0.0-3.0); HEMATOCRIT 40.1 % (42.0-52.0); HEMOGLOBIN 13.1 g/dl (13.5-17.5); LYMPH # 1.5 10^3/uL (1.5-5.0); LYMPH % 13.1 % (24.0-44.0); MEAN CORPUSCULAR HEMOGLOBIN 30.7 pg (27.0-33.0); MEAN CORPUSCULAR HGB CONC 32.7 g/dl (32.0-36.5); MEAN CORPUSCULAR VOLUME 93.9 fl (80.0-96.0); MONO # 0.7 10^3/uL (0.0-0.8); MONO % 5.7 % (0.0-5.0); NEUTROPHILS # 8.9 10^3/uL (1.5-8.5); PLATELET COUNT, AUTOMATED 254 10^3/uL (150-450); RED BLOOD COUNT 4.27 10^6/uL (4.30-6.10); WHITE BLOOD COUNT 11.8 10^3/uL (4.0-10.0)
[2019-11-26 06:55] LABS: BLOOD UREA NITROGEN 13 MG/DL (7-18); CALCIUM LEVEL 8.3 MG/DL (8.8-10.2); CARBON DIOXIDE LEVEL 29 MEQ/L (21-32); CHLORIDE LEVEL 106 MEQ/L (98-107); CREATININE FOR GFR 0.83 MG/DL (0.70-1.30); GLOMERULAR FILTRATION RATE > 60.0 (>49); GLUCOSE, FASTING 92 MG/DL (70-100); POTASSIUM SERUM 3.8 MEQ/L (3.5-5.1); SODIUM LEVEL 140 MEQ/L (136-145)
--- NOTE | 2019-11-26 08:49 | DS.PDOC ---
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 CASTRO, DR. WILKINSON GENERAL SURGERY-DR VACA INFECTIOUS DISEASE-DR. SCHWARTZ DISCHARGE INSTRUCTIONS: Complete at least 2 wks of antibiotics Fu w Urology within 7days of discharge, pcp within 5 days of discharge, ID 1- 2wks Urology to determine when keys can be discontinued keys care at home home care referral for daily wet to dry dressings Call your urologist if fever 100.4 or higher, increased yellow drainage at the left groin, or worsening swelling, redness, and pain. PROCEDURES DURING THIS ADMISSION: DATE OF PROCEDURE: 11/18/2019 PREOPERATIVE DIAGNOSIS: Dulce's gangrene. POSTOPERATIVE DIAGNOSIS: Dulce's gangrene. PROCEDURE: Incision, drainage, and debridement of left inguinal region, external scrotal area and perineum. SURGEON: Dr. Arcelia Brown [employer] OPERATOR: Dr. Vaca ANESTHESIA: General. MEDICATIONS: Zosyn. DATE OF PROCEDURE: 11/22/2019 PREPROCEDURE DIAGNOSIS: Dulce's gangrene. POSTPROCEDURE DIAGNOSIS: Dulce's gangrene PROCEDURE PERFORMED: Scrotal exploration and debridement. SURGEON: Paulo Castro MD ANESTHESIA: General. ESTIMATED BLOOD LOSS: 50 mL. COMPLICATIONS: None. HOSPITAL COURSE: This is a 64-year-old male admitted on 11/18/2019 with complaints of scrotal pain and swelling, recurrent fevers, diagnosed with the flu and treated with 5 days of Tamiflu, presented with a temperature of 100.7, lactic acid of 4.4, started on clindamycin and vancomycin. Ultrasound of the scrotum showed infectious versus inflammation in the absence of trauma. CT abdomen shows Dulce's gangrene. Patient underwent surgical debridement on 11/18/[address] Arcelia Brown, Urology, and General Surgeon, Dr. Vaca, with repeat debridement on 11/22/[address] Castro, Urologist. Due to inability to use the wound VAC secondary to significant serous drainage, the patient is currently on wet-to-dry dressings. He had been changed to vancomycin and Zosyn initially, and after infectious disease (ID) was consulted, vancomycin was discontinued. He was continued on Zosyn until yesterday. On 11/24/2019, he was switched over to Avelox. Dulce's gangrene of the left groin, status post debridement on 11/18/2019 and repeat debridement on 11/22/2019 by urology. Previously on clindamycin and vancomycin, then vancomycin and Zosyn, then IV Zosyn and currently switched over to Avelox to complete at least 2 more weeks as an outpatient. Wound VAC could not be placed due to increased serous drainage. Per urology, wet-to-dry dressings would be adequate. Home care referral. Due to the Coronavirus quarantine, the patient's is unable to come into the hospital as a visitor to be taught about wet-to-dry dressing. Therefore, RN will have home care teach the at home about daily wet-to-dry dressings. He will need to continue his Keys catheter to keep the area cleaned. He is ambulating well and otherwise stable for hospital discharge. Influenza, present on hospital admission. Completed Tamiflu 75 mg twice a day. No recurrent symptoms. Super morbid obesity with possible obesity hypoventilation syndrome. Patient refused obstructive sleep apnea (SERA) protocol and did not want to continue his pulse oximetry despite risk of hypercarbia and hypercapnic respiratory failure. Since he was placed on Dilaudid intravenously for breakthrough pain, the patient says that he has no pain currently since the second debridement and walks around independently without much discomfort. Obstructive sleep apnea. On chronic continuous positive airway pressure (CPAP). Refused to wear CPAP during the hospital stay. Currently not requiring a significant amount of pain medication after the second surgical debridement. History of coronary artery disease, myocardial infarction ([place]) in the past. On Lipitor, Coreg and aspirin. Hypertension. On chronic Coreg with episodes of sinus bradycardia, which is asymptomatic. Hyperlipidemia. On chronic statin. DISPOSITION: Patient is medically stable for discharge home with home care with daily wet-to-dry dressings. He will need to complete at least 2 weeks of antibiotics, currently with recommendations for Avelox but prescription coverage was denied by his insurance for Avelox and has been switched to Levaquin 750 mg daily, 21 days have been dispensed and patient has been given Bacid to decrease risk of Clostridium difficile (C diff). DISCHARGE PHYSICAL EXAMINATION: VITALS: PLS SEE BELOW Generally, patient is awake, alert, oriented times three, answering questions appropriately. Face is symmetric. Tongue is midline. Very thick neck. Lungs are clear to auscultation. No wheezing or rales. Heart: S1, S2, sinus. Abdomen is soft, nontender, nondistended. Positive bowel sounds. Extremities: Chronic trace to 1+ pitting edema. Patient continues to have serous drainage at the left incision site with scrotal edema and erythema. DISCHARGE LABORATORY DATA, IMAGING STUDIES, MICROBIOLOGY: PLS SEE BELOW PROCEDURE INFORMATION: Exam: US Scrotum Exam date and time: 11/18/2019 8:32 PM Age: 64 years old Clinical indication: Scrotum pain; Additional info: Testicular swelling/pain TECHNIQUE: Imaging protocol: Real-time ultrasound of the scrotum and contents with color Doppler and image documentation. COMPARISON: No relevant prior studies available. FINDINGS: Right testicle: The right testis measures 4.2 x 3.7 x 2.9 cm. Preservation of blood flow within the right testis. At the periphery of the right testis, there is a small hypoechoic intratesticular cyst or tunica albuginea cyst measuring 0.3 x 0.2 x 0.2 cm. There is no increased flow associated with this finding. Left testicle: The left testis measures 4.2 x 3.0 x 3.9 cm. There is preservation of blood flow within the left testis. No left intratesticular mass. Several tiny hyperechoic foci are identified within the left testis, consistent with microlithiasis. Epididymides: Within the right epididymis, there is a 0.6 x 0.6 x 0.4 cm hypoechoic cyst. There is a small hypoechoic cyst adjacent to the left epididymis measuring 0.3 x 0.3 x 0.1 cm. The right epididymis measures 0.7 cm in diameter. The left epididymis measures 0.7 cm in diameter. Scrotum: Scrotal thickening/swelling is identified, most significant on the right side. This measures 2.2 cm in thickness on the right side, and 1.6 cm in thickness on the left side. IMPRESSION: 1. Scrotal thickening/swelling is identified, most significant on the right side. This is likely infectious or inflammatory in the absence of trauma. Clinical correlation recommended. 2. Several tiny hyperechoic foci are identified within the left testis, consistent with microlithiasis. Follow-up ultrasonography is recommended due to the association of microlithiasis with testicular neoplasm. 3. Bilateral epididymal cysts. 4. At the periphery of the right testis, there is a small hypoechoic intratesticular cyst or tunica albuginea cyst measuring 0.3 x 0.2 x 0.2 cm. Electronically signed by: Pedro Mejía On 11/18/2019 20:52:34 PM The findings were verbally communicated via telephone conference with CANDELARIO YOUNG at 10:14 PM EDT on 11/18/2019. The findings were acknowledged and understood. Electronically signed by: Pedro Mejía On 11/18/2019 22:14:38 PM DD: PEDRO MEJÍA MD 11/18/[id number] DT: CHIDI 11/18/192213 DS: KATH 11/18/192213 Exam: CT Abdomen And Pelvis With Contrast Exam date and time: 11/18/2019 9:19 PM Age: 64 years old Clinical indication: Mass, lump, or swelling; Lower; Abdominal pain; Localized; Additional info: Pelvic swelling/pain; R/O abscess TECHNIQUE: Imaging protocol: Computed tomography of the abdomen and pelvis with intravenous contrast. Radiation optimization: All CT scans at this facility use at least one of these dose optimization techniques: automated exposure control; mA and/or kV adjustment per patient size (includes targeted exams where dose is matched to clinical indication); or iterative reconstruction. Contrast material: ISOVUE 370; Contrast volume: 100 ml; Contrast route: IV; COMPARISON: No relevant prior studies available. FINDINGS: Liver: There is hypodense fatty infiltration of the liver. Gallbladder and bile ducts: Dependent hyperdensity is identified within the gallbladder, likely representing gallstones. Pancreas: There is fatty infiltration of the pancreas, consistent with atrophy. Spleen: A few splenules are identified. No splenomegaly. Adrenals: No mass. Kidneys and ureters: Unremarkable as visualized. No hydronephrosis. Stomach and bowel: Evaluation of bowel is limited by the absence of oral contrast. A small umbilical hernia is identified. A small portion of small bowel extends into this hernia. No bowel obstruction. Appendix: No evidence of appendicitis. Intraperitoneal space: No free air. No significant fluid collection. Vasculature: There is atherosclerotic calcification of the abdominal aorta and iliac arteries. A retroaortic left renal vein is visualized. Lymph nodes: Inguinal lymph nodes are identified bilaterally, some which are enlarged. A left inguinal lymph node measures 3.2 cm in length. A few mildly enlarged intrapelvic lymph nodes are also identified. Bladder: Unremarkable as visualized. Reproductive: See Soft Tissues Finding. Bones/joints: Grade 1/2 anterolisthesis of L5 on S1. Hypertrophic degenerative changes are noted within the spine. Soft tissues: There is significant soft tissue swelling of the perineum with multiple foci of gas. These findings extend to the left inguinal region. Scrotal swelling is also visualized. 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 IMPRESSION: 1. There is significant soft tissue swelling of the perineum with multiple foci of gas. These findings extend to the left inguinal region. Scrotal swelling is also visualized. 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 2. Fatty infiltration of the liver. 3. Cholelithiasis. 4. Small umbilical hernia containing small bowel. 5. Inguinal lymph nodes are identified bilaterally, some which are enlarged. A few mildly enlarged intrapelvic lymph nodes are also identified. 6. Grade 1/2 anterolisthesis of L5 on S1. 7. Additional findings described above. Electronically signed by: Pedro Mejía On 11/18/2019 22:03:01 PM TIME SPENT ON DISCHARGE: 30MIN Vital Signs/I&Os Vital Signs Date Time Temp Pulse Resp B/P (MAP) Pulse Ox O2 Delivery O2 Flow Rate FiO2 11/26/19 06:00 98.0 67 20 151/79 (103) 94 11/25/19 14:00 Room Air 11/22/19 18:25 2.0 I&O- Last 24 Hours up to 6 AM 11/26/19 06:00 Intake Total 1390 ml Output Total 3425 ml Balance -2035 ml Laboratory Data Labs 24H Laboratory Tests 2 11/26/19 06:04: Immature Granulocyte % (Auto) 2.7, Neutrophils (%) (Auto) 76.0H, Lymphocytes (%) (Auto) 13.1L, Monocytes (%) (Auto) 5.7H, Eosinophils (%) (Auto) 2.1, Basophils (%) (Auto) 0.4, Neutrophils # (Auto) 8.9H, Lymphocytes # (Auto) 1.5, Monocytes # (Auto) 0.7, Eosinophils # (Auto) 0.3, Basophils # (Auto) 0.1, Nucleated Red Blood Cells % (auto) 0.0, Anion Gap 5L, Glomerular Filtration Rate > 60.0, Calcium Level 8.3L CBC/BMP Laboratory Tests 11/26/19 06:04 Microbiology Microbiology 11/19/19 Gram Stain - Final, Complete 11/19/19 Abscess Culture - Final, Complete Strep (Group F) Constellatus Granulicatella Adiacens 11/19/19 Anaerobic Culture - Final, Complete Anaerobic Cocci 11/18/19 Blood Culture - Final, Complete NO GROWTH AFTER 5 DAYS 11/18/19 Blood Culture - Final, Complete NO GROWTH AFTER 5 DAYS Discharge Medications Scheduled Aspirin (Aspir 81) 81 Mg Tab, 81 MG PO DAILY, (Reported) Atorvastatin Calcium (Atorvastatin Calcium) 80 Mg Tab, 80 MG PO DAILY, (Reported) Carvedilol (Carvedilol) 6.25 Mg Tab, 6.25 MG PO BID, (Reported) L.acidoph/L.bulg/B.bif/S.therm (Bacid Caplet) 1 Each Tablet, 1 TAB PO [facility] Levofloxacin (Levaquin) 750 Mg Tablet, 750 MG PO DAILY Allergies Coded Allergies: No Known Allergies (Unverified , 11/18/19) DEMETRIS BRYANT MD Nov 26, 2019 08:31
[2019-11-26] MEDS: SODIUM CHLORIDE 0.9% NASAL GEL 15GM (AYR) SCH ×4 (09:00→22:20)
[2019-11-26] MEDS: ASPIRIN 81 MG ENTERIC TAB PO SCH (09:29)
[2019-11-26] MEDS: CARVedilol 6.25 MG TAB PO SCH ×2 (09:29→22:19)
[2019-11-26] MEDS: HEPARIN SOD (PORCINE) 5000 UNITS/ML VIAL (J1644 PER 1000UNITS) SQ SCH ×2 (09:29→22:20)
[2019-11-26] MEDS: ATORVASTATIN 20 MG TAB PO SCH (09:29)
--- NOTE | 2019-11-26 10:43 | IPNPDOC ---
Date Seen The patient was seen on 11/26/19. Progress Note DISCHARGE POSTPONED - CANNOT PROVIDE SKILLED CARE AT HOME. -HOME CARE UNABLE TO DO DAILY WOUND DRESSING CHANGES. PLAN: SNF PLACEMENT PFS CONSULTED CHANGE TO ALC/SNF STATUS VS, I&O, 24H, [facility] Vital Signs/I&O Vital Signs Date Time Temp Pulse Resp B/P (MAP) Pulse Ox O2 Delivery O2 Flow Rate FiO2 11/26/19 09:29 67 151/79 11/26/19 06:00 98.0 20 94 11/25/19 14:00 Room Air 11/22/19 18:25 2.0 I&O- Last 24 Hours up to 6 AM 11/26/19 06:00 Intake Total 1390 ml Output Total 3425 ml Balance -2035 ml Laboratory Data 24H LABS Laboratory Tests 2 11/26/19 06:04: Immature Granulocyte % (Auto) 2.7, Neutrophils (%) (Auto) 76.0H, Lymphocytes (%) (Auto) 13.1L, Monocytes (%) (Auto) 5.7H, Eosinophils (%) (Auto) 2.1, Basophils (%) (Auto) 0.4, Neutrophils # (Auto) 8.9H, Lymphocytes # (Auto) 1.5, Monocytes # (Auto) 0.7, Eosinophils # (Auto) 0.3, Basophils # (Auto) 0.1, Nucleated Red Blood Cells % (auto) 0.0, Anion Gap 5L, Glomerular Filtration Rate > 60.0, Calcium Level 8.3L CBC/BMP Laboratory Tests 11/26/19 06:04 Microbiology Microbiology 11/19/19 Gram Stain - Final, Complete 11/19/19 Abscess Culture - Final, Complete Strep (Group F) Constellatus Granulicatella Adiacens 11/19/19 Anaerobic Culture - Final, Complete Anaerobic Cocci 11/18/19 Blood Culture - Final, Complete NO GROWTH AFTER 5 DAYS 11/18/19 Blood Culture - Final, Complete NO GROWTH AFTER 5 DAYS DEMETRIS BRYANT MD Nov 26, 2019 10:43
[2019-11-26] MEDS ORDERED: MOM 30ML SUSPENSION UDC PO PRN (10:45)
[2019-11-26] MEDS ORDERED: FLEET ENEMA PR PRN (10:45)
[2019-11-26] MEDS: PERCOCET 5MG/325MG TAB PO PRN (10:52)
--- NOTE | 2019-11-26 11:31 | IPNPDOC ---
Subjective Review oF Systems Chief Complaint The patient is a 64-year-old male admitted with a reason for visit of Dulce Gangrene. Events since Last Encounter Pt reports large volume wound drainage. No voiding problems prior to this illness. Pain less. C/O insomnia. Other systems Neg except as noted above Objective Physical Examination General Exam: Alert, Cooperative, No Acute Distress Eye Exam: PERRLA, Conjunctiva & lids normal, EOMI; No: Sclera icteric ENT EXAM: Atraumatic, Mucous membr. moist/pink, Pharynx Normal Neck Exam: Supple; No: JVD, thyromegaly Chest Exam: Clear to auscultation, Normal air movement Heart Exam: Positive: Rate Normal Telemetry: No significant arrhythmia ABDOMEN EXAM: Normal bowel sounds, Other (dressings removed from L groin - tissue links beefy red and healthy w/ no active drainage; surrouding skin is healthy; penis and scrotum are edematous but nontender and w/o crepitus) Male Exam: Normal Genital Exam, Lesions (Wound granulating. Min purulence on packing) Extremity Exam: Tenderness; No: Clubbing, Cyanosis, Edema Skin Exam: Nl turgor and temperature; No: Rash, Breakdown Neuro Exam: Normal Gait, Normal Speech, Cranial Nerves 3-12 NL, Reflexes 2+ Psych Exam: Mental status NL, Mood NL, Oriented x 3 Other physical findings Wound inspected: Dressings soaked with ss drainage. Mod penoscrotal edema with decreased cellulitis. Wounds starting to granulate Vital Signs/I&O Vital Signs Date Time Temp Pulse Resp B/P (MAP) Pulse Ox O2 Delivery O2 Flow Rate FiO2 11/26/19 10:52 20 11/26/19 09:29 67 151/79 11/26/19 06:00 98.0 94 11/25/19 14:00 Room Air 11/22/19 18:25 2.0 I&O- Last 24 Hours up to 6 AM 11/26/19 06:00 Intake Total 1390 ml Output Total 3425 ml Balance -2035 ml Laboratory Data Labs 24H Laboratory Tests 2 11/26/19 06:04: Immature Granulocyte % (Auto) 2.7, Neutrophils (%) (Auto) 76.0H, Lymphocytes (%) (Auto) 13.1L, Monocytes (%) (Auto) 5.7H, Eosinophils (%) (Auto) 2.1, Basophils (%) (Auto) 0.4, Neutrophils # (Auto) 8.9H, Lymphocytes # (Auto) 1.5, Monocytes # (Auto) 0.7, Eosinophils # (Auto) 0.3, Basophils # (Auto) 0.1, Nucleated Red Blood Cells % (auto) 0.0, Anion Gap 5L, Glomerular Filtration Rate > 60.0, Calci um Level 8.3L CBC/BMP Laboratory Tests 11/26/19 06:04 Microbiology Microbiology 11/19/19 Gram Stain - Final, Complete 11/19/19 Abscess Culture - Final, Complete Strep (Group F) Constellatus Granulicatella Adiacens 11/19/19 Anaerobic Culture - Final, Complete Anaerobic Cocci 11/18/19 Blood Culture - Final, Complete NO GROWTH AFTER 5 DAYS 11/18/19 Blood Culture - Final, Complete NO GROWTH AFTER 5 DAYS Assessment/Plan Date Seen The patient was seen on 11/26/19. Patient Summary Complex wound in pt with Dulce's gangrene. Social situation/wound complexity not amenable to 1/week nursing visits with family - as yet untrained - providing daily dressing changes. Not a wound vac candidate. Problems (1) Dulce gangrene Status: Acute Plan/VTE VTE Prophylaxis Ordered?: Yes VTE Exclusion Mechanical Proph: N/A:VTE Prophy Ordered Plan/Urinary Catheter Reason for insertion/continuin: Assist wound healing Plan P: Rec stay today so an adequate wound management plan can be developed tomorrow for post d/c. Should prob see out pt wound clinic several times, so family can be taught before going to a 1/week nurse visit. Will take keys out today to see if he can manage without it. Will defer to hospitalist service for insomnia mgmt. Diet: Continue Current JACLYN JONES MD Nov 26, 2019 11:31
[2019-11-26] MEDS: MOXIFLOXACIN 400 MG TAB PO SCH (16:20)
[2019-11-26] MEDS: hydrOXYzine 50 MG TAB PO PRN (23:08)
[2019-11-27 06:00] VITALS: BP 114/54
[2019-11-27 06:26] LABS: BASO % 0.3 % (0.0-1.0); EOS # 0.2 10^3/uL (0.0-0.5); EOS % 1.5 % (0.0-3.0); HEMATOCRIT 40.1 % (42.0-52.0); HEMOGLOBIN 13.1 g/dl (13.5-17.5); LYMPH # 1.7 10^3/uL (1.5-5.0); LYMPH % 14.4 % (24.0-44.0); MEAN CORPUSCULAR HEMOGLOBIN 30.4 pg (27.0-33.0); MEAN CORPUSCULAR HGB CONC 32.7 g/dl (32.0-36.5); MONO # 0.6 10^3/uL (0.0-0.8); MONO % 5.3 % (0.0-5.0); NEUTROPHILS % 76.9 % (36.0-66.0); PLATELET COUNT, AUTOMATED 257 10^3/uL (150-450); RED BLOOD COUNT 4.31 10^6/uL (4.30-6.10); WHITE BLOOD COUNT 11.7 10^3/uL (4.0-10.0)
[2019-11-27 06:52] LABS: BLOOD UREA NITROGEN 13 MG/DL (7-18); CALCIUM LEVEL 8.2 MG/DL (8.8-10.2); CARBON DIOXIDE LEVEL 28 MEQ/L (21-32); CHLORIDE LEVEL 106 MEQ/L (98-107); CREATININE FOR GFR 0.88 MG/DL (0.70-1.30); GLOMERULAR FILTRATION RATE > 60.0 (>49); GLUCOSE, FASTING 98 MG/DL (70-100); POTASSIUM SERUM 4.2 MEQ/L (3.5-5.1); SODIUM LEVEL 140 MEQ/L (136-145)
[2019-11-27] MEDS: ATORVASTATIN 20 MG TAB PO SCH (09:40)
[2019-11-27] MEDS: ASPIRIN 81 MG ENTERIC TAB PO SCH (09:40)
[2019-11-27] MEDS: HEPARIN SOD (PORCINE) 5000 UNITS/ML VIAL (J1644 PER 1000UNITS) SQ SCH ×2 (09:40→20:19)
[2019-11-27] MEDS: CARVedilol 6.25 MG TAB PO SCH ×2 (09:41→20:20)
[2019-11-27] MEDS: SODIUM CHLORIDE 0.9% NASAL GEL 15GM (AYR) SCH ×4 (09:41→20:20)
[2019-11-27 10:06] LABS: C REACTIVE PROTEIN QUANTITATIV 1.82 MG/DL (0.00-0.30)
[2019-11-27 10:24] LABS: ERYTHROCYTE SEDIMENTATION RATE 63 mm/hr (0-20)
--- NOTE | 2019-11-27 10:31 | IPNPDOC ---
Date Seen The patient was seen on 11/27/19. Progress Note addendum: CT abd/pelvis: 1. There is significant soft tissue swelling of the perineum with multiple foci of gas. These findings extend to the left inguinal region. Scrotal swelling is also visualized. These findings are consistent with necrotizing infection/Erick gangrene. 2. Fatty infiltration of the liver. 3. Cholelithiasis. 4. Small umbilical hernia containing small bowel. 5. Inguinal lymph nodes are identified bilaterally, some which are enlarged. A few mildly enlarged intrapelvic lymph nodes are also identified. 6. Grade 1/2 anterolisthesis of L5 on S1. 7. Additional findings described above. Electronically signed by: Pedro Pappas On 11/18/2019 22:03:01 PM plan: change to alc/snf status unable to dc home due to need for care home care for daily dressing changes for his deep necrotizing fasciitis/ erick's gangrene s/p debridement x 2, stable on avelox to complete at least 2 wks. VS, I&O, [facility]H, [facility] Vital Signs/I&O Vital Signs Date Time Temp Pulse Resp B/P (MAP) Pulse Ox O2 Delivery O2 Flow Rate FiO2 11/27/19 09:41 67 116/54 11/27/19 06:00 97.7 16 92 Room Air 11/22/19 18:25 2.0 I&O- Last 24 Hours up to 6 AM 11/27/19 06:00 Intake Total 1510 ml Output Total 3350 ml Balance -1840 ml Laboratory Data 24H LABS Laboratory Tests 2 11/27/19 06:11: Immature Granulocyte % (Auto) 1.6, Neutrophils (%) (Auto) 76.9H, Lymphocytes (%) (Auto) 14.4L, Monocytes (%) (Auto) 5.3H, Eosinophils (%) (Auto) 1.5, Basophils (%) (Auto) 0.3, Neutrophils # (Auto) 9.0H, Lymphocytes # (Auto) 1.7, Monocytes # (Auto) 0.6, Eosinophils # (Auto) 0.2, Basophils # (Auto) 0.0, Nucleated Red Blood Cells % (auto) 0.0, Erythrocyte Sedimentation Rate 63H, Anion Gap 6L, Glomerular Filtration Rate > 60.0, Calcium Level 8.2L, C-Reactive Protein, Quantitative 1.82H CBC/BMP Laboratory Tests 11/27/19 06:11 Microbiology Microbiology 11/19/19 Gram Stain - Final, Complete 11/19/19 Abscess Culture - Final, Complete Strep (Group F) Constellatus Granulicatella Adiacens 11/19/19 Anaerobic Culture - Final, Complete Anaerobic Cocci 11/18/19 Blood Culture - Final, Complete NO GROWTH AFTER 5 DAYS 11/18/19 Blood Culture - Final, Complete NO GROWTH AFTER 5 DAYS DEMETRIS BRYANT MD Nov 27, 2019 10:31
[2019-11-27] MEDS: PERCOCET 5MG/325MG TAB PO PRN (13:34)
--- NOTE | 2019-11-27 13:57 | IPNPDOC ---
Subjective Review oF Systems Chief Complaint The patient is a 64-year-old male admitted with a reason for visit of Dulce Gangrene. Events since Last Encounter Feeling better. Still with large amount of clear wound drainage. Unable to work out out pt wound clinic f/u so far. Ambulating; voiding without difficulty. General: Denies: ROS Unobtainable, Chills, Night Sweats, Fatigue, Malaise, Normal Appetite, Other Symptoms Constitutional: Denies: Fever, Chills, Sweats, Weakness, Malaise, Other Cardiovascular: Denies Chest Pain, Denies Palpitations, Denies Orthopnea, Denies Paroxysmal Noc. Dyspnea, Denies Edema, Denies Lt Headedness, Denies Other Symptoms Musculoskeletal: Denies: Neck Pain, Back Pain, Shoulder Pain, Arm Pain, Hand Pa in, Leg Pain, Foot Pain, Joint Pain, Muscle Pain, Spasms, Other Symptoms Psych: Denies: Mood Normal, Anxiety, Depression, Memory Issues, Thoughts of Self Harm, Anger, Thoughts of harming Other, Other Psych Objective Physical Examination General Exam: Alert, Cooperative, No Acute Distress Eye Exam: PERRLA, Conjunctiva & lids normal, EOMI; No: Sclera icteric ENT EXAM: Atraumatic, Mucous membr. moist/pink, Pharynx Normal Neck Exam: Supple; No: JVD, thyromegaly Chest Exam: Clear to auscultation, Normal air movement Heart Exam: Positive: Rate Normal Telemetry: No significant arrhythmia ABDOMEN EXAM: Normal bowel sounds, Other (dressings removed from L groin - tissue links beefy red and healthy w/ no active drainage; surrouding skin is healthy; penis and scrotum are edematous but nontender and w/o crepitus) Male Exam: Normal Genital Exam, Lesions (Wound granulating. Min purulence on packing), Edema (decreased from previous) Extremity Exam: Tenderness; No: Clubbing, Cyanosis, Edema Skin Exam: Nl turgor and temperature; No: Rash, Breakdown Neuro Exam: Normal Gait, Normal Speech, Cranial Nerves 3-12 NL, Reflexes 2+; No: Strength at 5/5 X4 ext, Normal Tone, Sensation Intact, Other Psych Exam: Mental status NL, Mood NL, Oriented x 3; No: Anxiety, Memory Intact, Other Vital Signs/I&O Vital Signs Date Time Temp Pulse Resp B/P (MAP) Pulse Ox O2 Delivery O2 Flow Rate FiO2 11/27/19 13:34 17 11/27/19 09:41 67 116/54 11/27/19 06:00 97.7 92 Room Air 11/22/19 18:25 2.0 I&O- Last 24 Hours up to 6 AM 11/27/19 06:00 Intake Total 1510 ml Output Total 3350 ml Balance -1840 ml Laboratory Data Labs 24H Laboratory Tests 2 11/27/19 06:11: Immature Granulocyte % (Auto) 1.6, Neutrophils (%) (Auto) 76.9H, Lymphocytes (%) (Auto) 14.4L, Monocytes (%) (Auto) 5.3H, Eosinophils (%) (Auto) 1.5, Basophils (%) (Auto) 0.3, Neutrophils # (Auto) 9.0H, Lymphocytes # (Auto) 1.7, Monocytes # (Auto) 0.6, Eosinophils # (Auto) 0.2, Basophils # (Auto) 0.0, Nucleated Red Blood Cells % (auto) 0.0, Erythrocyte Sedimentation Rate 63H, Anion Gap 6L, Glomerular Filtration Rate > 60.0, Calcium Level 8.2L, C-Reactive Protein, Quantitative 1.82H CBC/BMP Laboratory Tests 11/27/19 06:11 Microbiology Microbiology 11/19/19 Gram Stain - Final, Complete 11/19/19 Abscess Culture - Final, Complete Strep (Group F) Constellatus Granulicatella Adiacens 11/19/19 Anaerobic Culture - Final, Complete Anaerobic Cocci 11/18/19 Blood Culture - Final, Complete NO GROWTH AFTER 5 DAYS 11/18/19 Blood Culture - Final, Complete NO GROWTH AFTER 5 DAYS Assessment/Plan Date Seen The patient was seen on 11/27/19. Patient Summary Dulce's Gangrene with complex wound Problems (1) Dulce gangrene Status: Acute Plan/VTE VTE Prophylaxis Ordered?: Yes VTE Exclusion Mechanical Proph: N/A:VTE Prophy Ordered Plan/Urinary Catheter Reason for insertion/continuin: Assist wound healing Plan P: SS to continue to attempt to arrange outpt wound clinic care of more frequent home wound care visits. Here until then. Diet: Continue Current JACLYN OJNES MD Nov 27, 2019 13:54
[2019-11-27] MEDS: MOXIFLOXACIN 400 MG TAB PO SCH (16:22)
--- NOTE | 2019-11-27 18:16 | IPN ---
DATE: 11/27/2019 Mr. Bolton is still here because of wound issues and dressing changes. Wound VAC has been discontinued as it did not get a good seal. The was not able to do his dressing changes. We are still waiting with Dr. Panda to see how the best dressing changes will be arranged for his discharge. PHYSICAL EXAMINATION: Per urology, he still has large amount of clear wound drainage. The patient is out of bed. ambulating on his own and doing well. Pain is well-controlled. Temperature is 97.7, pulse 65, respirations 16, blood pressure 114/54, oxygen saturation 92% on room air. He has been afebrile since the 11/19/2019. LABORATORY DATA: White count 11.7, hemoglobin 13.1, hematocrit 40.1, platelets 257, 77% neutrophils, 15% lymphocytes, 5% monocytes. Erythrocyte sedimentation rate 63. Sodium 140, potassium 4.2, chloride 106, bicarbonate 28, BUN 13, creatinine 0.8, glucose 98, calcium 8.2. CRP 1.82 down from 18.1. MEDICATIONS: - Moxifloxacin, day number day #4, started on 11/24/2019; wound cultures were positive for anaerobic cocci Granulicatella and Streptococcus constellatus. 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 2. Morbid obesity. Dressing changes have been challenging for the . PLAN: Continue to follow with urology and wound clinic. Continue moxifloxacin for total of two weeks.
[2019-11-28 05:52] LABS: BASO % 0.3 % (0.0-1.0); EOS # 0.2 10^3/uL (0.0-0.5); EOS % 1.6 % (0.0-3.0); HEMATOCRIT 41.3 % (42.0-52.0); HEMOGLOBIN 13.4 g/dl (13.5-17.5); LYMPH # 1.6 10^3/uL (1.5-5.0); LYMPH % 16.5 % (24.0-44.0); MEAN CORPUSCULAR HEMOGLOBIN 30.5 pg (27.0-33.0); MEAN CORPUSCULAR HGB CONC 32.4 g/dl (32.0-36.5); MEAN CORPUSCULAR VOLUME 94.1 fl (80.0-96.0); MONO # 0.6 10^3/uL (0.0-0.8); MONO % 6.4 % (0.0-5.0); NEUTROPHILS % 73.9 % (36.0-66.0); PLATELET COUNT, AUTOMATED 251 10^3/uL (150-450); RED BLOOD COUNT 4.39 10^6/uL (4.30-6.10); WHITE BLOOD COUNT 9.5 10^3/uL (4.0-10.0)
[2019-11-28 06:00] VITALS: BP 113/60
[2019-11-28 06:21] LABS: BLOOD UREA NITROGEN 12 MG/DL (7-18); CALCIUM LEVEL 9.1 MG/DL (8.8-10.2); CARBON DIOXIDE LEVEL 29 MEQ/L (21-32); CHLORIDE LEVEL 105 MEQ/L (98-107); CREATININE FOR GFR 0.94 MG/DL (0.70-1.30); GLOMERULAR FILTRATION RATE > 60.0 (>49); GLUCOSE, FASTING 85 MG/DL (70-100); POTASSIUM SERUM 4.1 MEQ/L (3.5-5.1); SODIUM LEVEL 138 MEQ/L (136-145)
[2019-11-28] MEDS: SODIUM CHLORIDE 0.9% NASAL GEL 15GM (AYR) SCH ×4 (08:33→21:00)
[2019-11-28] MEDS: ASPIRIN 81 MG ENTERIC TAB PO SCH (08:33)
[2019-11-28] MEDS: HEPARIN SOD (PORCINE) 5000 UNITS/ML VIAL (J1644 PER 1000UNITS) SQ SCH ×2 (08:33→21:07)
[2019-11-28] MEDS: ATORVASTATIN 20 MG TAB PO SCH (08:33)
[2019-11-28] MEDS: CARVedilol 6.25 MG TAB PO SCH ×2 (08:35→21:07)
--- NOTE | 2019-11-28 10:11 | IPNPDOC ---
Subjective Review oF Systems Chief Complaint The patient is a 64-year-old male admitted with a reason for visit of Dulce Gangrene. Events since Last Encounter Large drainage volume overnight Constitutional: Denies: Fever, Chills, Sweats, Weakness, Malaise, Other Gastrointestinal: Denies: Nausea, Vomiting, Abdominal Pain, Diarrhea, Constipation, Melena, Hematochezia, Other Symptoms Genitourinary: Denies: Dysuria, Frequency, Incontinence, Hematuria, Retention, Other Symptoms Psych: Denies: Mood Normal, Anxiety, Depression, Memory Issues, Thoughts of Self Harm, Anger, Thoughts of harming Other, Other Psych Objective Physical Examination General Exam: Alert, Cooperative, No Acute Distress Eye Exam: PERRLA, Conjunctiva & lids normal, EOMI; No: Sclera icteric ENT EXAM: Atraumatic, Mucous membr. moist/pink, Pharynx Normal Neck Exam: Supple; No: JVD, thyromegaly Chest Exam: Clear to auscultation, Normal air movement Heart Exam: Positive: Rate Normal Telemetry: No significant arrhythmia ABDOMEN EXAM: Normal bowel sounds, Other (dressings removed from L groin - tissue links beefy red and healthy w/ no active drainage; surrouding skin is healthy; penis and scrotum are edematous but nontender and w/o crepitus) Male Exam: Normal Genital Exam, Lesions (Wound granulating. No packing in large groin wound), Edema (decreased from previous) Extremity Exam: Tenderness; No: Clubbing, Cyanosis, Edema Skin Exam: Nl turgor and temperature; No: Rash, Breakdown Neuro Exam: Normal Gait, Normal Speech, Cranial Nerves 3-12 NL, Reflexes 2+; No: Strength at 5/5 X4 ext, Normal Tone, Sensation Intact, Other Psych Exam: Mental status NL, Mood NL, Oriented x 3; No: Anxiety, Memory Intact, Other Vital Signs/I&O Vital Signs Date Time Temp Pulse Resp B/P (MAP) Pulse Ox O2 Delivery O2 Flow Rate FiO2 11/28/19 08:35 68 144/82 11/28/19 06:00 98.3 19 94 Room Air 11/22/19 18:25 2.0 I&O- Last 24 Hours up to 6 AM 11/28/19 06:00 Intake Total 2220 ml Output Total 1950 ml Balance 270 ml Laboratory Data Labs 24H Laboratory Tests 2 11/28/19 05:23: Immature Granulocyte % (Auto) 1.3, Neutrophils (%) (Auto) 73.9H, Lymphocytes (%) (Auto) 16.5L, Monocytes (%) (Auto) 6.4H, Eosinophils (%) (Auto) 1.6, Basophils (%) (Auto) 0.3, Neutrophils # (Auto) 7.0, Lymphocytes # (Auto) 1.6, Monocytes # (Auto) 0.6, Eosinophils # (Auto) 0.2, Basophils # (Auto) 0.0, Nucleated Red Blood Cells % (auto) 0.0, Anion Gap 4L, Glomerular Filtration Rate > 60.0, Calcium Level 9.1 CBC/BMP Laboratory Tests 11/28/19 05:23 Microbiology Microbiology 11/19/19 Gram Stain - Final, Complete 11/19/19 Abscess Culture - Final, Complete Strep (Group F) Constellatus Granulicatella Adiacens 11/19/19 Anaerobic Culture - Final, Complete Anaerobic Cocci 11/18/19 Blood Culture - Final, Complete NO GROWTH AFTER 5 DAYS 11/18/19 Blood Culture - Final, Complete NO GROWTH AFTER 5 DAYS Assessment/Plan Date Seen The patient was seen on 11/28/19. Patient Summary A: Large wound following 2 part debridgement for Dulce's gangrene Problems (1) Dulce gangrene Status: Acute Plan/VTE VTE Prophylaxis Ordered?: Yes VTE Exclusion Mechanical Proph: N/A:VTE Prophy Ordered Plan/Urinary Catheter Reason for insertion/continuin: Assist wound healing Plan P: Wound care during and post discharge. Diet: Continue Current JACLYN JONES MD Nov 28, 2019 10:11
[2019-11-28] MEDS: PERCOCET 5MG/325MG TAB PO PRN ×2 (10:18→22:12)
[2019-11-28] MEDS: MOXIFLOXACIN 400 MG TAB PO SCH (15:40)
[2019-11-28 22:00] VITALS: BP 115/55
--- NOTE | 2019-11-28 22:07 | IPNPDOC ---
Date Seen The patient was seen on 11/28/19. Progress Note SUBJECTIVE: No acute complaints overnight. Pain controlled on current regimen. On PO avelox, tolerating well. Denies fevers, chills, nausea, increased pain or swelling. OBJECTIVE: VITAL SIGNS: Please see below PHYSICAL EXAMINATION: CONSTITUTIONAL: No acute distress, resting comfortably, AAO x 3 EYES: PERRLA, EOM intact HENT, MOUTH: Normocephalic, atraumatic, moist mucous membranes NECK: large diameter neck, SUPPLE, no JVD, no lymphadenopathy, no carotid bruit CV: Regular rate and rhythm, S1S2 normal, no murmurs/rubs/gallops RESPIRATORY: Clear to auscultation bilaterally, no rales/rhonchi/wheezes GI: Obese abdomen, BS positive in 4 quadrants, soft, nontender, nondistended, no rebound or guarding, no organomegaly. Wound in left groin is beefy red and healthy w/ no active drainage; surrouding skin is healthy : Penis and scrotum are edematous but nontender and w/o crepitus. Normal Genital Exam, Lesions. Wound granulating. No packing in large groin wound),Edema (decreased from previous) MUSCULOSKELETAL: Normal ROM. No cyanosis, clubbing, swelling, joint deformity, extremity edema INTEGUMENTARY: Intact, no rashes, no lesions, no erythema NEUROLOGIC: Cranial Nerves II-XII are intact, no focal deficits PSYCHIATRIC: Mood and affect are normal CURRENT MEDICATIONS: Please see below LABORATORY DATA: Please see below IMAGING: No new imaging. ASSESSMENT: 64 y/o M under inpatient status for Dulce's gangrene of the left groin, post debridement. PLAN: 1. Dulce's gangrene of the left groin, status post debridement. Swelling still present but tolerated PO avelox well, stop date 12/04/19. Requires daily wound dressings, cannot return home due to skilled need. Urology following closely. Pain controlled with current regimen, d/c IV dilaudid. 2. Super morbid obesity. BMI of 59.9. Nutrition has seen while here. 3. History of CAD with [place] in the past. Home medications. 4. Hypertension. Controlled on current medications. 5. Hyperlipidemia. On chronic statins. 6. SERA. CPAP nightly. 7. DVT px. Heparin SC Q12 hrs. DISPOSITION: Hopeful for discharge home with home care and bariatric wound clinic. Clinically improving under inpatient status. VS, I&O, 24H, Fishbone Vital Signs/I&O Vital Signs Date Time Temp Pulse Resp B/P (MAP) Pulse Ox O2 Delivery O2 Flow Rate FiO2 11/28/19 21:07 58 115/55 11/28/19 10:48 18 11/28/19 06:00 98.3 94 Room Air 11/22/19 18:25 2.0 I&O- Last 24 Hours up to 6 AM 11/28/19 06:00 Intake Total 2220 ml Output Total 1950 ml Balance 270 ml Laboratory Data 24H LABS Laboratory Tests 2 11/28/19 05:23: Immature Granulocyte % (Auto) 1.3, Neutrophils (%) (Auto) 73.9H, Lymphocytes (%) (Auto) 16.5L, Monocytes (%) (Auto) 6.4H, Eosinophils (%) (Auto) 1.6, Basophils (%) (Auto) 0.3, Neutrophils # (Auto) 7.0, Lymphocytes # (Auto) 1.6, Monocytes # (Auto) 0.6, Eosinophils # (Auto) 0.2, Basophils # (Auto) 0.0, Nucleated Red Blood Cells % (auto) 0.0, Anion Gap 4L, Glomerular Filtration Rate > 60.0, Calcium Level 9.1 CBC/BMP Laboratory Tests 11/28/19 05:23 Microbiology Microbiology 11/19/19 Gram Stain - Final, Complete 11/19/19 Abscess Culture - Final, Complete Strep (Group F) Constellatus Granulicatella Adiacens 11/19/19 Anaerobic Culture - Final, Complete Anaerobic Cocci 11/18/19 Blood Culture - Final, Complete NO GROWTH AFTER 5 DAYS 11/18/19 Blood Culture - Final, Complete NO GROWTH AFTER 5 DAYS Courtney Cain MD Nov 28, 2019 22:07
[2019-11-29 06:00] VITALS: BP 131/54
[2019-11-29 06:14] LABS: BASO % 0.4 % (0.0-1.0); EOS # 0.2 10^3/uL (0.0-0.5); HEMATOCRIT 41.6 % (42.0-52.0); HEMOGLOBIN 13.4 g/dl (13.5-17.5); LYMPH # 1.6 10^3/uL (1.5-5.0); LYMPH % 19.8 % (24.0-44.0); MEAN CORPUSCULAR HEMOGLOBIN 30.7 pg (27.0-33.0); MEAN CORPUSCULAR HGB CONC 32.2 g/dl (32.0-36.5); MEAN CORPUSCULAR VOLUME 95.4 fl (80.0-96.0); MONO # 0.7 10^3/uL (0.0-0.8); MONO % 8.8 % (0.0-5.0); NEUTROPHILS # 5.5 10^3/uL (1.5-8.5); NEUTROPHILS % 68.1 % (36.0-66.0); PLATELET COUNT, AUTOMATED 224 10^3/uL (150-450); RED BLOOD COUNT 4.36 10^6/uL (4.30-6.10)
[2019-11-29 06:41] LABS: BLOOD UREA NITROGEN 14 MG/DL (7-18); CALCIUM LEVEL 8.8 MG/DL (8.8-10.2); CARBON DIOXIDE LEVEL 29 MEQ/L (21-32); CHLORIDE LEVEL 104 MEQ/L (98-107); CREATININE FOR GFR 0.96 MG/DL (0.70-1.30); GLOMERULAR FILTRATION RATE > 60.0 (>49); GLUCOSE, FASTING 87 MG/DL (70-100); POTASSIUM SERUM 4.1 MEQ/L (3.5-5.1); SODIUM LEVEL 138 MEQ/L (136-145)
[2019-11-29] MEDS: SODIUM CHLORIDE 0.9% NASAL GEL 15GM (AYR) SCH ×4 (09:00→21:00)
[2019-11-29] MEDS: HEPARIN SOD (PORCINE) 5000 UNITS/ML VIAL (J1644 PER 1000UNITS) SQ SCH ×2 (09:02→21:04)
[2019-11-29] MEDS: ATORVASTATIN 20 MG TAB PO SCH (09:02)
[2019-11-29] MEDS: CARVedilol 6.25 MG TAB PO SCH ×2 (09:02→21:05)
[2019-11-29] MEDS: ASPIRIN 81 MG ENTERIC TAB PO SCH (09:02)
[2019-11-29] MEDS: PERCOCET 5MG/325MG TAB PO PRN (11:15)
--- NOTE | 2019-11-29 13:01 | IPNPDOC ---
Subjective Review oF Systems Chief Complaint The patient is a 64-year-old male admitted with a reason for visit of Dulce Gangrene. Events since Last Encounter Still having wound drainage. General: Reports: Normal Appetite; Denies: ROS Unobtainable, Chills, Night Sweats, Fatigue, Malaise, Other Symptoms Constitutional: Denies: Fever, Chills, Sweats, Weakness, Malaise, Other Pulmonary: Denies: Dyspnea, Cough, Pleuritic Chest Pain, Other Symptoms Genitourinary: Denies: Dysuria, Frequency, Incontinence, Hematuria, Retention, Other Symptoms Objective Physical Examination General Exam: Alert, Cooperative, No Acute Distress Eye Exam: PERRLA, Conjunctiva & lids normal, EOMI; No: Sclera icteric ENT EXAM: Atraumatic, Mucous membr. moist/pink, Pharynx Normal Neck Exam: Supple; No: JVD, thyromegaly Chest Exam: Clear to auscultation, Normal air movement Heart Exam: Positive: Rate Normal Telemetry: No significant arrhythmia ABDOMEN EXAM: Normal bowel sounds, Other (dressings removed from L groin - tissue links beefy red and healthy w/ no active drainage; surrouding skin is healthy; penis and scrotum are edematous but nontender and w/o crepitus) Male Exam: Normal Genital Exam, Lesions (Wound granulating. No packing in large groin wound), Edema (decreased from previous) Extremity Exam: Tenderness; No: Clubbing, Cyanosis, Edema Skin Exam: Nl turgor and temperature; No: Rash, Breakdown Neuro Exam: Normal Gait, Normal Speech, Cranial Nerves 3-12 NL, Reflexes 2+; No: Strength at 5/5 X4 ext, Normal Tone, Sensation Intact, Other Psych Exam: Mental status NL, Mood NL, Oriented x 3; No: Anxiety, Memory Intact, Other Vital Signs/I&O Vital Signs Date Time Temp Pulse Resp B/P (MAP) Pulse Ox O2 Delivery O2 Flow Rate FiO2 11/29/19 11:45 16 Room Air 11/29/19 06:00 97.7 64 131/54 (79) 97 I&O- Last 24 Hours up to 6 AM 11/29/19 06:00 Intake Total 750 ml Output Total 475 ml Balance 275 ml Laboratory Data Labs 24H Laboratory Tests 2 11/29/19 05:43: Immature Granulocyte % (Auto) 0.9, Neutrophils (%) (Auto) 68.1H, Lymphocytes (%) (Auto) 19.8L, Monocytes (%) (Auto) 8.8H, Eosinophils (%) (Auto) 2.0, Basophils (%) (Auto) 0.4, Neutrophils # (Auto) 5.5, Lymphocytes # (Auto) 1.6, Monocytes # (Auto) 0.7, Eosinophils # (Auto) 0.2, Basophils # (Auto) 0.0, Nucleated Red Blood Cells % (auto) 0.0, Anion Gap 5L, Glomerular Filtration Rate > 60.0, Calcium Level 8.8 CBC/BMP Laboratory Tests 11/29/19 05:43 Microbiology Microbiology 11/19/19 Gram Stain - Final, Complete 11/19/19 Abscess Culture - Final, Complete Strep (Group F) Constellatus Granulicatella Adiacens 11/19/19 Anaerobic Culture - Final, Complete Anaerobic Cocci Assessment/Plan Date Seen The patient was seen on 11/29/19. Patient Summary Impression: Dulce's Gangrene, with large complex wound. Problems (1) Dulce gangrene Status: Acute Plan/VTE VTE Prophylaxis Ordered?: Yes VTE Exclusion Mechanical Proph: N/A:VTE Prophy Ordered Plan/Urinary Catheter Reason for insertion/continuin: Assist wound healing Plan Plan: Wound plan being developed with wound management. May go plan outpatient wound care arranged. Diet: Continue Current JACLYN JONES MD Nov 29, 2019 13:01
[2019-11-29] MEDS: DIAPER RELIEF PASTE (DESITIN) 60GM TOP SCH (15:02)
[2019-11-29] MEDS: MOXIFLOXACIN 400 MG TAB PO SCH (15:02)
--- NOTE | 2019-11-29 15:12 | IPNPDOC ---
Date Seen The patient was seen on 11/29/19. Progress Note SUBJECTIVE: No acute complaints overnight. On PO avelox (stop date 12/04/19) tolerating well. Denies fevers, chills, nausea, increased pain.. OBJECTIVE: VITAL SIGNS: Please see below PHYSICAL EXAMINATION: CONSTITUTIONAL: No acute distress, resting comfortably, AAO x 3 EYES: PERRLA, EOM intact HENT, MOUTH: Normocephalic, atraumatic, moist mucous membranes NECK: large diameter neck, SUPPLE, no JVD, no lymphadenopathy, no carotid bruit CV: Regular rate and rhythm, S1S2 normal, no murmurs/rubs/gallops RESPIRATORY: Clear to auscultation bilaterally, no rales/rhonchi/wheezes GI: Obese abdomen, BS positive in 4 quadrants, soft, nontender, nondistended, no rebound or guarding, no organomegaly. left groin wound less red and healthy w/ no active drainage; surrounding skin is healthy : Penis and scrotum edematous and nontender, still w/o crepitus. Wound granulating. No packing in large groin wound, edema decreased MUSCULOSKELETAL: Normal ROM. No cyanosis, clubbing, swelling, joint deformity, extremity edema INTEGUMENTARY: Intact, no rashes, no lesions, no erythema NEUROLOGIC: Cranial Nerves II-XII are intact, no focal deficits PSYCHIATRIC: Mood and affect are normal CURRENT MEDICATIONS: Please see below LABORATORY DATA: Please see below IMAGING: No new imaging. ASSESSMENT: 64 y/o M under inpatient status for Dulce's gangrene of the left groin, post debridement. PLAN: 1. Dulce's gangrene of the left groin, status post debridement. C/w PO avelox (stop 12/04/19), daily wound dressings, cannot return home due to skilled need. Urology following closely. Pain controlled with current regimen. May be able to send home with home nursing, social work discussing options at this time. 2. Super morbid obesity. BMI of 59.9. Nutrition following. 3. History of CAD with [place] in the past. Home medications. 4. Hypertension. Controlled on current medications. 5. Hyperlipidemia. On chronic statins. 6. SERA. CPAP nightly. 7. DVT px. Heparin SC Q12 hrs. DISPOSITION: Hopeful for discharge home with home care and bariatric wound clinic, still working this out. Clinically improving under inpatient status. VS, I&O, 24H, Fishbone Vital Signs/I&O Vital Signs Date Time Temp Pulse Resp B/P (MAP) Pulse Ox O2 Delivery O2 Flow Rate FiO2 11/29/19 11:45 16 Room Air 11/29/19 06:00 97.7 64 131/54 (79) 97 I&O- Last 24 Hours up to 6 AM 11/29/19 06:00 Intake Total 750 ml Output Total 475 ml Balance 275 ml Laboratory Data 24H LABS Laboratory Tests 2 11/29/19 05:43: Immature Granulocyte % (Auto) 0.9, Neutrophils (%) (Auto) 68.1H, Lymphocytes (%) (Auto) 19.8L, Monocytes (%) (Auto) 8.8H, Eosinophils (%) (Auto) 2.0, Basophils (%) (Auto) 0.4, Neutrophils # (Auto) 5.5, Lymphocytes # (Auto) 1.6, Monocytes # (Auto) 0.7, Eosinophils # (Auto) 0.2, Basophils # (Auto) 0.0, Nucleated Red Blood Cells % (auto) 0.0, Anion Gap 5L, Glomerular Filtration Rate > 60.0, Calcium Level 8.8 CBC/BMP Laboratory Tests 11/29/19 05:43 Microbiology Microbiology 11/19/19 Gram Stain - Final, Complete 11/19/19 Abscess Culture - Final, Complete Strep (Group F) Constellatus Granulicatella Adiacens 11/19/19 Anaerobic Culture - Final, Complete Anaerobic Cocci Courtney Cain MD Nov 29, 2019 15:12
--- NOTE | 2019-11-29 17:18 | CR ---
DATE OF ADVANCED WOUND CARE CONSULTATION VIA TELEMEDICINE: DATE OF SERVICE: 11/29/2019 CONSULT REQUESTED BY: Dr. Beatty. REASON FOR CONSULTATION: Regarding wound care for the left hemiscrotum and medial inguinal area. 64-year-old non-diabetic morbidly obese male weighing 442 pounds was found to have Dulce's gangrene requiring surgical debridement performed at [facility] on November 17 and then follow up debridement on November 22, 2019. Treatment has been wet-to-dry dressing changes and I have been asked to evaluate and suggest wound care treatments. The patient's wound culture showed polymicrobial gram-positives and gram-negatives. The patient is on Avelox, is afebrile and voiding without a catheter. PHYSICAL EXAMINATION: On physical examination, there is a full-thickness wound involving the lateral aspect of the left hemiscrotum extending to the inguinal crease. This wound base shows areas of fibrin slough without necrotic gangrenous tissue. The linear measurement for length is 23.0 cm with a width of 2.5 cm and a wound depth of 9.0 cm. There is a satellite lesion in close proximity measuring 4.0 cm x 1.0 cm with a wound depth of 3.0 cm. TREATMENT RECOMMENDATIONS 1. Wet-to-dry dressing should be discontinued for multiple reasons, specifically this does not allow for moist wound care, drying the wound will cause cell necrosis, decrease wound temperature which results in localized wound vasoconstriction, ischemia and eventually hypoxia. Additionally when the dressing dries it will adhere to the underlying wound base causes tissue damage when it is removed, damaging recruited fibroblasts cells required for wound healing. It also can be quite uncomfortable during dressing changes, Therefore wet-to-dry dressings will be discontinued. Vashe hypochlorous acid wound cleanser will be utilized to clean the wound by soaking a 4x4 and applying it to the wound for 10 minutes. This will then be removed and the wound irrigated with saline. Calcium alginate will then be placed in the wound and the periwound (the skin adjacent to the open wound) will be protected with Desitin (a zinc water barrier cream). Dressing changes should be on a daily basis. An overlying foam dressing should be utilized to secure the alginate in place and absorb any additional wound exudate. It should be noted when doing dressing changes that the alginate may appear wet and "gooey". This is normal. The wound should be reevaluated in a week to see if progress is being made and if the patient is discharged he can be followed up at our wound clinic. If on the other hand a secondary closure is to be attempted plastic surgery can be consulted. Thank you for this consult. JEFF
[2019-11-30 06:00] VITALS: BP 159/84
[2019-11-30] MEDS: ATORVASTATIN 20 MG TAB PO SCH (08:43)
[2019-11-30] MEDS: HEPARIN SOD (PORCINE) 5000 UNITS/ML VIAL (J1644 PER 1000UNITS) SQ SCH ×2 (08:43→20:04)
[2019-11-30] MEDS: ASPIRIN 81 MG ENTERIC TAB PO SCH (08:43)
[2019-11-30] MEDS: CARVedilol 6.25 MG TAB PO SCH ×2 (08:43→20:04)
[2019-11-30] MEDS: DIAPER RELIEF PASTE (DESITIN) 60GM TOP SCH (08:45)
[2019-11-30] MEDS: SODIUM CHLORIDE 0.9% NASAL GEL 15GM (AYR) SCH ×5 (08:45→20:05)
[2019-11-30 10:42] LABS: HEMATOCRIT 40.5 % (42.0-52.0); HEMOGLOBIN 13.1 g/dl (13.5-17.5); MEAN CORPUSCULAR HEMOGLOBIN 30.5 pg (27.0-33.0); MEAN CORPUSCULAR HGB CONC 32.3 g/dl (32.0-36.5); MEAN CORPUSCULAR VOLUME 94.4 fl (80.0-96.0); PLATELET COUNT, AUTOMATED 201 10^3/uL (150-450); RED BLOOD COUNT 4.29 10^6/uL (4.30-6.10); WHITE BLOOD COUNT 7.2 10^3/uL (4.0-10.0)
[2019-11-30 11:15] LABS: BLOOD UREA NITROGEN 15 MG/DL (7-18); CALCIUM LEVEL 8.6 MG/DL (8.8-10.2); CARBON DIOXIDE LEVEL 28 MEQ/L (21-32); CHLORIDE LEVEL 107 MEQ/L (98-107); CREATININE FOR GFR 0.96 MG/DL (0.70-1.30); GLOMERULAR FILTRATION RATE > 60.0 (>49); GLUCOSE, FASTING 105 MG/DL (70-100); POTASSIUM SERUM 4.2 MEQ/L (3.5-5.1); SODIUM LEVEL 138 MEQ/L (136-145)
[2019-11-30] MEDS: MOXIFLOXACIN 400 MG TAB PO SCH (16:52)
[2019-11-30] MEDS: PERCOCET 5MG/325MG TAB PO PRN (16:59)
--- NOTE | 2019-11-30 17:20 | IPNPDOC ---
Date Seen The patient was seen on 11/30/19. Progress Note SUBJECTIVE: No complaints outside of pain with movement in the groin, improved with pain medications. Denies chest pain, fevers, shortness of breath, n/v/d. OBJECTIVE: VITAL SIGNS: Please see below PHYSICAL EXAMINATION: CONSTITUTIONAL: No acute distress, resting comfortably, AAO x 3 EYES: PERRLA, EOM intact HENT, MOUTH: Normocephalic, atraumatic, moist mucous membranes NECK: large diameter neck, SUPPLE, no JVD, no lymphadenopathy, no carotid bruit CV: Regular rate and rhythm, S1S2 normal, no murmurs/rubs/gallops RESPIRATORY: Clear to auscultation bilaterally, no rales/rhonchi/wheezes GI: Obese abdomen, BS positive in 4 quadrants, soft, nontender, nondistended, no rebound or guarding, no organomegaly. left groin wound less red and healthy w/ no active drainage; surrounding skin is healthy : Penis and scrotum edematous and nontender, improving. No crepitus. Wound granulating. No packing in large groin wound, edema decreased. Tender to touch MUSCULOSKELETAL: Normal ROM. No cyanosis, clubbing, swelling, joint deformity, extremity edema INTEGUMENTARY: Intact, no rashes, no lesions, no erythema NEUROLOGIC: Cranial Nerves II-XII are intact, no focal deficits PSYCHIATRIC: Mood and affect are normal CURRENT MEDICATIONS: Please see below LABORATORY DATA: Please see below IMAGING: No new imaging. ASSESSMENT: 64 y/o M under inpatient status for Dulce's gangrene of the left groin, post debridement. PLAN: 1. Dulce's gangrene of the left groin, status post debridement. Much improved. Detailed wound instructions in Dr. Panda's note, please review for specific wound care instructions. C/w PO avelox (stop 12/04/19) 2. Super morbid obesity. BMI of 59.9. Nutrition following. 3. History of CAD with [place] in the past. Home medications. 4. Hypertension. Controlled on current medications. 5. Hyperlipidemia. On chronic statins. 6. SERA. CPAP nightly. 7. DVT px. Heparin SC Q12 hrs. DISPOSITION: Hopeful for discharge to SNF and bariatric wound clinic, still working this out. Clinically improving under inpatient status. VS, I&O, 24H, Fishbone Vital Signs/I&O Vital Signs Date Time Temp Pulse Resp B/P (MAP) Pulse Ox O2 Delivery O2 Flow Rate FiO2 11/30/19 16:59 17 Room Air 11/30/19 08:43 62 159/84 11/30/19 06:00 97.4 97 I&O- Last 24 Hours up to 6 AM 11/30/19 06:00 Intake Total 2580 ml Output Total 1400 ml Balance 1180 ml Laboratory Data 24H LABS Laboratory Tests 2 11/30/19 06:14: Erythrocyte Sedimentation Rate 80H 11/30/19 10:34: Nucleated Red Blood Cells % (auto) 0.0, Anion Gap 3L, Glomerular Filtration Rate > 60.0, Calcium Level 8.6L CBC/BMP Laboratory Tests 11/30/19 10:34 Current Medications Current Medications Medications (Trade) Dose Ordered Sig/Hailey Route PRN Reason Start Time Stop Time Status Last Admin Dose Admin Aspirin (Ecotrin) 81 mg DAILY PO 11/19/19 09:00 11/30/19 08:43 Atorvastatin Calcium (Lipitor) 80 mg DAILY PO 11/19/19 09:00 11/30/19 08:43 Carvedilol (COReg) 6.25 mg BID PO 11/19/19 09:00 11/30/19 08:43 Clindamycin Phosphate 900 mg/ IV Miscellaneous Supplies 50 ml @ 50 mls/hr Q12H IV 11/19/19 03:00 11/20/19 03:59 DC 11/20/19 04:40 Cod Liver Oil/ Zinc Oxide (Desitin) APPLY to periwound DAILY TOP 11/29/19 09:00 11/30/19 08:45 Fentanyl Citrate (Sublimaze) 25 mcg Q5MP PRN IV PAIN LEVEL 5-10 11/19/19 01:45 11/19/19 02:44 DC Fentanyl Citrate (Sublimaze) 25 mcg Q5MP PRN IV PAIN LEVEL 5-10 11/22/19 16:00 11/22/19 17:00 DC Fentanyl Citrate (Sublimaze) 100 mcg Q1HP PRN IV SEVERE PAIN (PS 8-10) 11/18/19 23:00 11/21/19 07:57 DC 11/20/19 10:02 Heparin Sodium (Porcine) (Heparin) 5,000 units Q12H SQ 11/19/19 21:00 11/30/19 08:43 Home Med (Med Rec Complete!) ASDIRECTED XX 11/18/19 23:30 11/18/19 23:19 DC Hydromorphone HCl (Dilaudid) 0.5 mg Q3HP PRN IV MODERATE/SEVERE PAIN (PS 5-10) 11/21/19 08:00 11/28/19 10:10 DC 11/24/19 14:02 Hydroxyzine HCl (Atarax) 50 mg DAILYPRN PRN PO ANXIETY 11/21/19 23:15 11/26/19 23:08 Lactated Ringer's 1,000 ml @ 100 mls/hr Q10H IV 11/19/19 01:45 11/19/19 02:44 DC Lactated Ringer's 1,000 ml @ 100 mls/hr Q10H IV 11/22/19 16:00 11/22/19 17:00 DC Lactated Ringer's 1,000 ml @ 150 mls/hr Q6H40M IV 11/18/19 23:00 11/19/19 09:20 DC 11/19/19 03:54 Magnesium Hydroxide (Milk Of Magnesia) 30 ml DAILYPRN PRN PO CONSTIPATION 11/26/19 10:45 Meperidine HCl (Demerol) 12.5 mg Q5MP PRN IV SHIVERING 11/19/19 01:45 11/19/19 02:44 DC Metoclopramide HCl (REGLAN INJection) 10 mg Q6HP PRN IV NAUSEA OR VOMITING 11/19/19 01:45 11/19/19 02:44 DC Miscellaneous (Unresolved Clarification Entry) SEE LABEL COMMENTS DAILY XX 11/28/19 09:00 11/29/19 08:45 DC Moxifloxacin HCl (Avelox) 400 mg Q24H PO 11/24/19 16:00 12/09/19 21:59 11/30/19 16:52 Ondansetron HCl (ZOFRAN INJection) 4 mg Q4HP PRN IV NAUSEA OR VOMITING 11/19/19 01:45 11/19/19 02:44 DC Oseltamivir Phosphate (Tamiflu) 75 mg BID PO 11/19/19 09:00 11/21/19 20:56 DC 11/21/19 20:10 Oxycodone/ Acetaminophen (Percocet 5mg/ 325mg Tablet) 1 tab ASDIRECTED PRN PO PAIN LEVEL 1-4 11/19/19 01:45 11/19/19 02:44 DC Oxycodone/ Acetaminophen (Percocet 5mg/ 325mg Tablet) 1 tab ASDIRECTED PRN PO PAIN LEVEL 1-4 11/22/19 16:00 11/22/19 17:00 DC Oxycodone/ Acetaminophen (Percocet 5mg/ 325mg Tablet) 1 tab Q6HP PRN PO MILD/MODERATE PAIN (PS 1-7) 11/20/19 08:45 11/22/19 16:41 Oxycodone/ Acetaminophen (Percocet 5mg/ 325mg Tablet) 2 tab Q6HP PRN PO SEVERE PAIN (PS 8-10) 11/20/19 08:45 11/30/19 16:59 Piperacillin Sod/ Tazobactam Sod 3.375 gm/Dextrose 50 ml @ 50 mls/hr Q6H IV 11/19/19 12:00 11/24/19 15:04 DC 11/24/19 12:35 Potassium Phos/ Sodium Phos (K-Phos Neutral) 250 mg TID PO 11/20/19 16:00 11/21/19 16:01 DC 11/21/19 17:30 Sodium Biphosphate/ Sodium Phosphate (Fleet Enema) 1 ea Q3DP PRN AR CONSTIPATION 11/26/19 10:45 Sodium Chloride 1,000 ml @ 150 mls/hr Q6H40M IV 11/19/19 09:30 11/20/19 08:47 DC 11/19/19 22:06 Sodium Chloride ([place] Saline Nasal Gel) APPLY SMALL AYAH... QID NA 11/21/19 13:00 11/27/19 09:41 Sodium Chloride ([place] Nasal [place]) 2 spray Q2HP PRN NA NASAL DRYNESS 11/21/19 12:45 Vancomycin HCl 1000 mg/IV Miscellaneous Supplies 1 each/ Dextrose 270 ml @ 270 mls/hr Q1H IV 11/19/19 13:00 11/19/19 14:59 DC 11/19/19 15:47 Vancomycin HCl 1000 mg/IV Miscellaneous Supplies 1 each/ Dextrose 270 ml @ 270 mls/hr Q8H IV 11/19/19 11:45 UNV Vancomycin HCl 1000 mg/IV Miscellaneous Supplies 1 each/ Dextrose 270 ml @ 270 mls/hr Q8H IV 11/19/19 21:00 11/21/19 15:34 DC 11/21/19 12:56 Allergies Coded Allergies: No Known Allergies (Unverified , 11/18/19) Courtney Cain MD Nov 30, 2019 17:20
--- NOTE | 2019-11-30 17:24 | DS.PDOC ---
Discharge Summary General Date of Admission Nov 18, 2019 at 22:50 Date of Discharge 12/01/19 Attending Physician: Courtney Cain MD Specialist/Consultants Involve: Paulo Panda MD Discharge Summary HPI and HOSPITAL COURSE: This is a 64-year-old male admitted on 11/18/2019 with complaints of scrotal pain and swelling, recurrent fevers, diagnosed with the flu and treated with 5 days of Tamiflu, presented with a temperature of 100.7, lactic acid of 4.4, st arted on clindamycin and vancomycin. Ultrasound of the scrotum showed infectious versus inflammation in the absence of trauma. CT abdomen shows Dulce's gangrene. Patient underwent surgical debridement on 11/18/[address] Arcelia Brown, Urology, and General Surgeon, Dr. Vaca, with repeat debridement on 11/22/[address] Castro, Urologist. Due to inability to use the wound VAC secondary to significant serous drainage, the patient is currently on wet-to-dry dressings. He had been changed to vancomycin and Zosyn initially, and after infectious disease (ID) was consulted, vancomycin was discontinued. On 11/24/2019, he was switched over to Avelox which he is set to continue until 12/04/19. It was decided patient needs a very specific wound care plan, requiring mcc. Dr. Panda, pharmacy retail support specialist, no longer recommends wet-to-dry dressings but Vashe hypochlorous acid wound cleanser will be utilized to clean the wound by soaking a 4x4 and applying it to the wound for 10 minutes. This will then be removed and the wound irrigated with saline. Calcium alginate will then be placed in the wound and the periwound (the skin adjacent to the open wound) will be protected with Desitin (a zinc water barrier cream). Dressing changes should be on a daily basis. An overlying foam dressing should be utilized to secure the alginate in place and absorb any additional wound exudate. It should be noted when doing dressing changes that the alginate may appear wet . The wound should be reevaluated in a week to see if progress is being made and if the patient is discharged he can be followed up at [facility]'s wound clinic. Patient's pain is currently controlled on regimen and swelling on exam has gone significantly down. Patient is scheduled to follow up with PCP, urologist after discharge to rehab. At the time of discharge, patient denies chest pain, n/v/d, shortness of breath, fevers, chills, n/v/d. REVIEW OF SYSTEMS: CONSTITUTIONAL: Denies unexplained weight gain or weight loss, loss of appetite, fever, night sweats EYES: Denies eye drainage, eye pain, visual changes, dry/irritated eye EARS, NOSE, MOUTH, THROAT: Denies difficulty hearing, ringing in ears, mouth sores, loose teeth, sore throat, facial numbness or pain NECK: Denies swollen glands CARDIOVASCULAR: Denies irregular heartbeat, racing heart, chest pains, swelling of feet or legs, pain in legs with walking RESPIRATORY: Denies shortness of breath, night sweats, wheezing, sputum production, oxygen at home, coughing up blood, cough lasting > 1 month GASTROINTESTINAL: Denies abdominal pain, constipation, bloody stool, diarrhea, heartburn, nausea, vomiting GENITOURINARY: Denies painful urination, bloody urine, frequent urination, urgency, leaking urine, impotence MUSCULOSKELETAL: Denies joint pain, muscle pain, leg swelling INTEGUMENTARY: Denies rash, itching, new skin lesion, change in existing skin lesion, hair loss or increase, breast changes. NEUROLOGICAL: Denies headaches, dizziness, difficulty walking, numbness or tingling PSYCHIATRIC: Denies depression, anxiety, recurrent bad thoughts, mood swings, hallucinations ALLERGIES: Please see below. DISCHARGE MEDICATIONS: Please see below. PHYSICAL EXAMINATION: CONSTITUTIONAL: No acute distress, resting comfortably, AAO x 3 EYES: PERRLA, EOM intact HENT, MOUTH: Normocephalic, atraumatic, moist mucous membranes NECK: large diameter neck, SUPPLE, no JVD, no lymphadenopathy, no carotid bruit CV: Regular rate and rhythm, S1S2 normal, no murmurs/rubs/gallops RESPIRATORY: Clear to auscultation bilaterally, no rales/rhonchi/wheezes GI: Obese abdomen, BS positive in 4 quadrants, soft, nontender, nondistended, no rebound or guarding, no organomegaly. left groin wound less red and healthy w/ no active drainage; surrounding skin is healthy : Penis and scrotum edematous and nontender, improving. No crepitus. Wound granulating. No packing in large groin wound, edema decreased. Tender to touch MUSCULOSKELETAL: Normal ROM. 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 PLAN: 1. Dulce's gangrene of the left groin, status post debridement. Much improved. Detailed wound instructions in Dr. Panda's note, please review for specific wound care instructions OR "Hospital course" above. C/w PO avelox (stop 12/04/19) 2. Super morbid obesity. BMI of 59.9. Recommend outpatient follow up with nutrition. 3. History of CAD with MA in the past. C/w current cardiac medications. 4. Hypertension. C/w current cardiac medications. 5. Hyperlipidemia. C/w statin. 6. SERA. CPAP nightly. DISPOSITION: Discharge to [facility] [place]. C/w wound treatments and will keep f/u appts with wound clinic, PCP, urology. TIME SPENT ON DISCHARGE: 25 minutes. Vital Signs/I&Os Vital Signs Date Time Temp Pulse Resp B/P (MAP) Pulse Ox O2 Delivery O2 Flow Rate FiO2 11/30/19 16:59 17 Room Air 11/30/19 08:43 62 159/84 11/30/19 06:00 97.4 97 I&O- Last 24 Hours up to 6 AM 11/30/19 06:00 Intake Total 2580 ml Output Total 1400 ml Balance 1180 ml Laboratory Data Labs 24H Laboratory Tests 2 11/30/19 06:14: Erythrocyte Sedimentation Rate 80H 11/30/19 10:34: Nucleated Red Blood Cells % (auto) 0.0, Anion Gap 3L, Glomerular Filtration Rate > 60.0, Calcium Level 8.6L CBC/BMP Laboratory Tests 11/30/19 10:34 Discharge Medications Scheduled Aspirin (Aspir 81) 81 Mg Tab, 81 MG PO DAILY, (Reported) Atorvastatin Calcium (Atorvastatin Calcium) 80 Mg Tab, 80 MG PO DAILY, (Reported) Carvedilol (Carvedilol) 6.25 Mg Tab, 6.25 MG PO BID, (Reported) L.acidoph/L.bulg/B.bif/S.therm (Bacid Caplet) 1 Each Tablet, 1 TAB PO [facility] Allergies Coded Allergies: No Known Allergies (Unverified , 11/18/19) Current Medications Current Medications Medications (Trade) Dose Ordered Sig/Hailey Route PRN Reason Start Time Stop Time Status Last Admin Dose Admin Aspirin (Ecotrin) 81 mg DAILY PO 11/19/19 09:00 11/30/19 08:43 Atorvastatin Calcium (Lipitor) 80 mg DAILY PO 11/19/19 09:00 11/30/19 08:43 Carvedilol (COReg) 6.25 mg BID PO 11/19/19 09:00 11/30/19 08:43 Clindamycin Phosphate 900 mg/ IV Miscellaneous Supplies 50 ml @ 50 mls/hr Q12H IV 11/19/19 03:00 11/20/19 03:59 DC 11/20/19 04:40 Cod Liver Oil/ Zinc Oxide (Desitin) APPLY to periwound DAILY TOP 11/29/19 09:00 11/30/19 08:45 Fentanyl Citrate (Sublimaze) 25 mcg Q5MP PRN IV PAIN LEVEL 5-10 11/19/19 01:45 11/19/19 02:44 DC Fentanyl Citrate (Sublimaze) 25 mcg Q5MP PRN IV PAIN LEVEL 5-10 11/22/19 16:00 11/22/19 17:00 DC Fentanyl Citrate (Sublimaze) 100 mcg Q1HP PRN IV SEVERE PAIN (PS 8-10) 11/18/19 23:00 11/21/19 07:57 DC 11/20/19 10:02 Heparin Sodium (Porcine) (Heparin) 5,000 units Q12H SQ 11/19/19 21:00 11/30/19 08:43 Home Med (Med Rec Complete!) ASDIRECTED XX 11/18/19 23:30 11/18/19 23:19 DC Hydromorphone HCl (Dilaudid) 0.5 mg Q3HP PRN IV MODERATE/SEVERE PAIN (PS 5-10) 11/21/19 08:00 11/28/19 10:10 DC 11/24/19 14:02 Hydroxyzine HCl (Atarax) 50 mg DAILYPRN PRN PO ANXIETY 11/21/19 23:15 11/26/19 23:08 Lactated Ringer's 1,000 ml @ 100 mls/hr Q10H IV 11/19/19 01:45 11/19/19 02:44 DC Lactated Ringer's 1,000 ml @ 100 mls/hr Q10H IV 11/22/19 16:00 11/22/19 17:00 DC Lactated Ringer's 1,000 ml @ 150 mls/hr Q6H40M IV 11/18/19 23:00 11/19/19 09:20 DC 11/19/19 03:54 Magnesium Hydroxide (Milk Of Magnesia) 30 ml DAILYPRN PRN PO CONSTIPATION 11/26/19 10:45 Meperidine HCl (Demerol) 12.5 mg Q5MP PRN IV SHIVERING 11/19/19 01:45 11/19/19 02:44 DC Metoclopramide HCl (REGLAN INJection) 10 mg Q6HP PRN IV NAUSEA OR VOMITING 11/19/19 01:45 11/19/19 02:44 DC Miscellaneous (Unresolved Clarification Entry) SEE LABEL COMMENTS DAILY XX 11/28/19 09:00 11/29/19 08:45 DC Moxifloxacin HCl (Avelox) 400 mg Q24H PO 11/24/19 16:00 12/09/19 21:59 11/30/19 16:52 Ondansetron HCl (ZOFRAN INJection) 4 mg Q4HP PRN IV NAUSEA OR VOMITING 11/19/19 01:45 11/19/19 02:44 DC Oseltamivir Phosphate (Tamiflu) 75 mg BID PO 11/19/19 09:00 11/21/19 20:56 DC 11/21/19 20:10 Oxycodone/ Acetaminophen (Percocet 5mg/ 325mg Tablet) 1 tab ASDIRECTED PRN PO PAIN LEVEL 1-4 11/19/19 01:45 11/19/19 02:44 DC Oxycodone/ Acetaminophen (Percocet 5mg/ 325mg Tablet) 1 tab ASDIRECTED PRN PO PAIN LEVEL 1-4 11/22/19 16:00 11/22/19 17:00 DC Oxycodone/ Acetaminophen (Percocet 5mg/ 325mg Tablet) 1 tab Q6HP PRN PO MILD/MODERATE PAIN (PS 1-7) 11/20/19 08:45 11/22/19 16:41 Oxycodone/ Acetaminophen (Percocet 5mg/ 325mg Tablet) 2 tab Q6HP PRN PO SEVERE PAIN (PS 8-10) 11/20/19 08:45 11/30/19 16:59 Piperacillin Sod/ Tazobactam Sod 3.375 gm/Dextrose 50 ml @ 50 mls/hr Q6H IV 11/19/19 12:00 11/24/19 15:04 DC 11/24/19 12:35 Potassium Phos/ Sodium Phos (K-Phos Neutral) 250 mg TID PO 11/20/19 16:00 11/21/19 16:01 DC 11/21/19 17:30 Sodium Biphosphate/ Sodium Phosphate (Fleet Enema) 1 ea Q3DP PRN MT CONSTIPATION 11/26/19 10:45 Sodium Chloride 1,000 ml @ 150 mls/hr Q6H40M IV 11/19/19 09:30 11/20/19 08:47 DC 11/19/19 22:06 Sodium Chloride ([place] Saline Nasal Gel) APPLY SMALL AYAH... QID NA 11/21/19 13:00 11/27/19 09:41 Sodium Chloride ([place] Nasal [place]) 2 spray Q2HP PRN NA NASAL DRYNESS 11/21/19 12:45 Vancomycin HCl 1000 mg/IV Miscellaneous Supplies 1 each/ Dextrose 270 ml @ 270 mls/hr Q1H IV 11/19/19 13:00 11/19/19 14:59 DC 11/19/19 15:47 Vancomycin HCl 1000 mg/IV Miscellaneous Supplies 1 each/ Dextrose 270 ml @ 270 mls/hr Q8H IV 11/19/19 11:45 UNV Vancomycin HCl 1000 mg/IV Miscellaneous Supplies 1 each/ Dextrose 270 ml @ 270 mls/hr Q8H IV 11/19/19 21:00 11/21/19 15:34 DC 11/21/19 12:56 Courtney Cain MD Nov 30, 2019 17:24
[2019-11-30] MEDS ORDERED: MOM30SS2 PO (17:48)
[2019-11-30] MEDS ORDERED: MOXI400T11 PO (17:48)
[2019-11-30] MEDS ORDERED: PERCOCET PO (17:48)
[2019-12-01 06:00] VITALS: BP 138/64
[2019-12-01] MEDS: SODIUM CHLORIDE 0.9% NASAL GEL 15GM (AYR) SCH (09:00)
[2019-12-01] MEDS: ASPIRIN 81 MG ENTERIC TAB PO SCH (09:53)
[2019-12-01 09:54] VITALS: BP 133/67
[2019-12-01] MEDS: CARVedilol 6.25 MG TAB PO SCH (09:54)
[2019-12-01] MEDS: ATORVASTATIN 20 MG TAB PO SCH (09:54)
[2019-12-01] MEDS: HEPARIN SOD (PORCINE) 5000 UNITS/ML VIAL (J1644 PER 1000UNITS) SQ SCH (09:54)
[2019-12-01] MEDS: DIAPER RELIEF PASTE (DESITIN) 60GM TOP SCH (09:55)
[2019-12-01] MEDS: PERCOCET 5MG/325MG TAB PO PRN (11:16)
== END 2019-12-01 12:50 | DRG 720 ==
LOC: M ED 19:10 → M ED INP 22:50 → M ICU 11-19 02:17 → M MSPAV 11-20 16:35
PROVIDERS: ADMIT Internal Medicine; ATTEND Internal Medicine
PROC: 0V9500Z Drainage of Scrotum with Drainage Device, Open Approach (ICD-10-PCS; 2019-11-18)
PROC: 0HD9XZZ Extraction of Perineum Skin, External Approach (ICD-10-PCS; principal; 2019-11-18 23:00)
PROC: 0VB50ZZ Excision of Scrotum, Open Approach (ICD-10-PCS; 2019-11-22)
DX: A41.9 Sepsis, unspecified organism (principal); M72.6 Necrotizing fasciitis; Z68.43 Body mass index [BMI] 50.0-59.9, adult; E66.01 Morbid (severe) obesity due to excess calories; K76.0 Fatty (change of) liver, not elsewhere classified; I25.10 Atherosclerotic heart disease of native coronary artery without angina pectoris; I25.2 Old myocardial infarction; E78.5 Hyperlipidemia, unspecified; I10 Essential (primary) hypertension; G47.33 Obstructive sleep apnea (adult) (pediatric); N49.2 Inflammatory disorders of scrotum; D72.829 Elevated white blood cell count, unspecified; N49.3 Fournier gangrene; Z79.82 Long term (current) use of aspirin; Z79.899 Other long term (current) drug therapy; J11.1 Influenza due to unidentified influenza virus with other respiratory manifestations; Z91.19 Patient's noncompliance with other medical treatment and regimen; N50.3 Cyst of epididymis; K42.9 Umbilical hernia without obstruction or gangrene; K80.20 Calculus of gallbladder without cholecystitis without obstruction; K44.9 Diaphragmatic hernia without obstruction or gangrene; R59.0 Localized enlarged lymph nodes; B95.4 Other streptococcus as the cause of diseases classified elsewhere

== ENCOUNTER → 2020-06-10 | Outpatient (REF) | payer OTHER ==
[~2020-06-10] MED LIST changes: -ASPI81TA85 PO; +ASPI81TA86 PO; +BACITAB PO; +CYCL-707 PO; -CYCL10TA PO; +LEVA750T7 PO; +MOM30SS2 PO; +MOXI400T11 PO; +OSEL75CA2 PO; +PERCOCET PO
[2020-06-10 12:36] LABS: ALBUMIN 2.9 GM/DL (3.2-5.2); ALT/SGPT 29 U/L (12-78); BILIRUBIN,TOTAL 0.5 MG/DL (0.2-1.0); BLOOD UREA NITROGEN 19 MG/DL (7-18); CALCIUM LEVEL 8.4 MG/DL (8.8-10.2); CARBON DIOXIDE LEVEL 30 MEQ/L (21-32); CHLORIDE LEVEL 107 MEQ/L (98-107); CHOLESTEROL LEVEL 164 MG/DL (<200); CHOLESTEROL RISK RATIO 3.037 (<5); CREATININE FOR GFR 0.87 MG/DL (0.70-1.30); GLOMERULAR FILTRATION RATE > 60.0 (>49); GLUCOSE, FASTING 111 MG/DL (70-100); HDL CHOLESTEROL 54 MG/DL (>40); LDL CHOLESTEROL 88 MG/DL (<100); NON-HDL-C 110 MG/DL; POTASSIUM SERUM 4.3 MEQ/L (3.5-5.1); SODIUM LEVEL 142 MEQ/L (136-145); TOTAL PROTEIN 6.8 GM/DL (6.4-8.2); TRIGLYCERIDES LEVEL 108 MG/DL (<150)
[2020-06-10 12:41] LABS: TOTAL 25(OH) VITAMIN D 44.5 NG/ML (30.0-100.0)
== END ==
LOC: M PLALAB 08:15
PROVIDERS: ATTEND Nurse Practitioner Family
DX: I10 Essential (primary) hypertension (principal); E78.00 Pure hypercholesterolemia, unspecified; E55.9 Vitamin D deficiency, unspecified

== ENCOUNTER 2020-10-31 10:49 | Emergency (ER) | payer OTHER ==
[~2020-10-31] VITALS: Ht 180.3 cm; Wt 209.6 kg
[2020-10-31] MEDS ORDERED: ADENOSINE 6MG/2ML INJECTION (J0153) As Ordered ONE ×2 (11:20→11:27)
[2020-10-31] MEDS ORDERED: ADENOSINE 6MG/2ML INJECTION (J0153) IV STA ×4 (11:32→11:36)
[2020-10-31] MEDS ORDERED: AMIODARONE HCL 150 MG in IV 1 EA IV STA ×3 (11:36→13:03)
[2020-10-31] MEDS ORDERED: LORazepam 2 MG/ML VIAL IV STA (12:05)
[2020-10-31 12:09] LABS: HEMATOCRIT 45.1 % (42.0-52.0); HEMOGLOBIN 14.8 g/dl (13.5-17.5); MEAN CORPUSCULAR HEMOGLOBIN 30.4 pg (27.0-33.0); MEAN CORPUSCULAR HGB CONC 32.8 g/dl (32.0-36.5); MEAN CORPUSCULAR VOLUME 92.6 fl (80.0-96.0); PLATELET COUNT, AUTOMATED 190 10^3/uL (150-450); RED BLOOD COUNT 4.87 10^6/uL (4.30-6.10); WHITE BLOOD COUNT 7.1 10^3/uL (4.0-10.0)
[2020-10-31 12:19] LABS: INR 0.97; PROTHROMBIN TIME 13.1 SECONDS (12.5-14.3)
[2020-10-31 12:20] LABS: PARTIAL THROMBOPLASTIN TIME 24.1 SECONDS (24.2-38.5)
[2020-10-31 12:48] LABS: MAGNESIUM LEVEL 1.9 MG/DL (1.8-2.4); THYROID STIMULATING HORMONE 2.14 uIU/ML (0.358-3.740)
--- OUTSIDE RECORDS SUMMARY | 2020-10-31 13:02 | CCD | Continuity of Care Document ---
Author Author Polo WILKES P.T. Organization Unknown Address [address] [place] [address] Phone [phone] Care Team Providers Care Manager Of Health Name Role Phone Yaquelin Spencer PAIGE AUTM [phone] Pedro Douglas PA-C AUTM [phone] Problems Active Problems Provider Date Closed fracture of upper end of tibia On set: 06/27/1999 Social History Type Date Description Comments Sex Unknown Allergies, Adverse Reactions, Alerts Description No Known Drug Allergies Medications Active Medications SIG Qnty Indications Ordering Provide r Date Hydrocodone-Acetaminophen 5-325mg Tablets 1-2 tab4-6 hours as needed pain, do not fill until 10-09-16 40tabs DThi Fish MD 10/09/2016 Carvedilol Tablets Unknown Atorvastatin Calcium 80mg Tablets 1 by mouth every day Unknown Zetia 10mg Tablets 1 by mo uth every day Unknown Acetaminophen 500mg Tablets 2 by mouth every day as needed Unknown Immunizations Description No Information Available Vital Signs Date Vital Result Comment 10/03/2020 3:08pm Body Temperature 96.6 F Height 70 inches 5'10" 10/15/2016 2:49pm Body Temperature 97.3 F Results Description No Information Available Procedures Description No Information Available Medical Devices Description No Information Available Encounters Type Date Location Provider Dx Diagnosis Office Visit 10/03/2020 3:30p [facility] Mayte Johnson PA-C M7 5.22 Bicipital tendinitis, left shoulder M75.42 Impingement syndrome of left shoulder Assessments Date Code Description Provider 10/03/2020 M75.22 Bicipital tendinitis, left shoul harley Mayte Johnson PA-C 10/03/2020 M75.42 Impingement syndrome of left bree regla Mayte Johnson PA-C Plan of Treatment Future Appointment(s):* 10/31/2020 8:00 am - Mateo Momin PTA at Physical Therapy * 10/29/2020 8:30 am - Mateo Momin PTA at Physical Therapy * 10/24/2020 8:30 am - Carlos Wilkes P.T. at Physical Therapy * 10/31/2020 9:15 am - Mayte Johnson PA-C at [facility] Functional Status Description No Information Available Mental Status Description No Information Available Referrals Refer to Reason for Referral Status Appt Date Pastor Fish MD AUTH FOR PT EVAL LT SHOULDER [phone]. [place] [facility] [place] DEPT.RHONDA Perkins [address] [facility], [address] [address] [phone] Pastor Fish MD AUTH [id number] FOR LT SHOULDER. RHONDA Trivedi d [address] [facility], [address] [address] [phone]
--- OUTSIDE RECORDS SUMMARY | 2020-10-31 13:02 | CCD | Continuity of Care Document ---
Author Author Polo [facility] Organization Unknown Address [address] [place] [id number] Phone [phone] Care Team Providers Care Inseam Leveler Name Role Phone Yaquelin Spencer PAIGE AUTM [phone] Pedro Douglas PA-C AUTM [phone] Problems Active Problems Provider Date Closed fracture of upper end of tibia On set: 06/27/1999 Social History Type Date Description Comments Sex Unknown Allergies, Adverse Reactions, Alerts Description No Known Drug Allergies Medications Active Medications SIG Qnty Indications Ordering Provide r Date Hydrocodone-Acetaminophen 5-325mg Tablets 1-2 tab4-6 hours as needed pain, do not fill until 10-09-16 40tabs D. Henry Fish MD 10/09/2016 Carvedilol Tablets Unknown Atorvastatin [...] F Results Description No Information Available Procedures Date Code Description Status 10/24/2020 30161 Therapeutic Procedure, Each 15 M inutes Completed 10/21/2020 52303 Physical Therapy Eval - Low Comp lexity Completed Medical Devices Description No Information Available Encounters Type Date Location Provider Dx Diagnosis Office Visit 10/03/2020 3:30p [place] Mayte Johnson PA-C M7 5.22 Bicipital tendinitis, left shoulder M75.42 Impingement syndrome of left shoulder Assessments Date Code Description Provider 10/24/2020 M75.22 Bicipital tendinitis, left shoul Perea P.T. 10/24/2020 M75.42 Impingement syndrome of left bree regla Randolph Chung P.T. 10/24/2020 S46.012D Strain of muscle(s) and tendon(s) of the rotator cuff of left shoulder, subsequent encounter Carlos Randolph Chung P.T. 10/21/2020 M75.22 Bicipital tendinitis, left shoul Michaels Chung P.T. 10/21/2020 M75.42 Impingement syndrome of left bree regla Randolph Chung P.T. 10/21/2020 S46.012D Strain of muscle(s) and tendon(s) of the rotator cuff of left shoulder, subsequent encounter Carlos CristinaThi Wilkes P.T. 10/03/2020 M75.22 Bicipital tendinitis, left shoul harley Mayte Johnson PA-C 10/03/2020 M75.42 Impingement syndrome of left bree regla Mayte Johnson PA-C Plan of Treatment Future Appointment(s):* 10/31/2020 8:00 am - Mateo Soriano PTA at Physical Therapy * 10/31/2020 9:15 am - Mayte Johnson PA-C at [place] Functional Status Description No Information Available Mental Status Description No Information Available Referrals Refer to Reason for Referral Status Appt Date Pastor Fish MD AUTH FOR PT EVAL LT SHOULDER [phone]. PT GOING TO [facility]. PASSED TO PT DEPT.HW Created [address] [place] [address], [address] [address] [phone] Pastor Fish MD AUTH [id number] FOR LT SHOULDER. HW Create d [address] [place] [address], [address] [address] [phone]
--- OUTSIDE RECORDS SUMMARY | 2020-10-31 13:02 | CCD | Continuity of Care Document ---
Author Author Polo JOHNSON PA-C Organization Unknown Address [address] [place] [address] Phone [phone] Care Team Providers Care Parachute Officer Name Role Phone Yaquelin Spencer PAIGE AUTM [phone] Pedro Douglas PA-C AUTM [phone] Problems Active Problems Provider Date Closed fracture [...] Provider Dx Diagnosis Office Visit 10/03/2020 3:30p [place] Mayte Johnson PA-C M7 5.22 Bicipital tendinitis, left shoulder M75.42 Impingement syndrome of left shoulder Assessments Date Code Description Provider 10/03/2020 M75.22 Bicipital tendinitis, left shoul harley Mayte Johnson PA-C 10/03/2020 M75.42 Impingement syndrome of left bree ulharley Mayte Johnson PA-C Plan of Treatment Future Appointment(s):* 10/21/2020 8:30 am - Carlos Wilkes P.T. at Physical Therapy * 10/31/2020 9:15 am - Mayte Johnson PA-C at [place] 10/03/2020 - Mayte Johnson PA-C* M75.22 Bicipital tendinitis, left shoulder* Follow up:* 4-6 weeks with bms for lt shoulder re-check * M75.42 Impingement syndrome of left shoulder Functional Status Description No Information Available Mental Status Description No Information Available Referrals Refer to Reason for Referral Status Appt Date Pastor Fish MD AUTH FOR PT EVAL LT SHOULDER [id number]. PT GOING TO [facility] [place]. PASSED TO PT DEPT.RHONDA Created [address] [place] [address] [phone] Pastor Fish [place] AUTH [id number] FOR LT SHOULDER. RHONDA Trivedi d [address] [place] [phone]
--- OUTSIDE RECORDS SUMMARY | 2020-10-31 13:03 | CCD ---
Author Author [facility] Organization [facility] Address Unknown Phone Unavailable Care Team Providers Care Chief Mate Name Role Phone Pastor Fish MD Unavailable Unavailable Pastor Fish MD Unavailable Pastor Masterson MD Unavailable Unavailable Pastor Fish MD Unavailable Unavailable Pastor Fish MD Unavailable Unavailable Pastor Fish MD Unavailable Unavailable Pastor Fish MD Unavailable Unavailable Pastor Fish MD Unavailable Unavailable Pastor Fish MD Unavailable Unavailable Pastor Fish MD Unavailable Unavailable Pastor Fish MD Unavailable Unavailable Pastor Fish MD Unavailable Unavailable Pastor Fish MD Unavailable Unavailable Pastor Fish MD Unavailable Unavailable Pastor Fish MD Unavailable Unavailable Pastor Fish MD Unavailable Unavailable Pastor Fish MD Unavailable Unavailable Pastor Fish MD Unavailable Unavailable Pastor Fish MD Unavailable Unavailable Pastor Fish MD Unavailable Unavailable Pastor Fish MD Unavailable Unavailable Pastor Fish MD Unavailable Unavailable Pastor Fish MD Unavailable Unavailable Pastor Fish MD Unavailable Unavailable Pastor Fish MD Unavailable Unavailable Pastor Fish MD Unavailable Unavailable Pastor Fish MD Unavailable Unavailable Pastor Fish MD Unavailable Unavailable Pastor Fish MD Unavailable Unavailable Pastor Fish MD Unavailable Unavailable Pastor Fish MD Unavailable Unavailable Pastor Fish MD Unavailable Unavailable Pastor Fish MD Unavailable Unavailable Pastor Fish MD Unavailable Unavailable Pastor Fish MD Unavailable Unavailable Pastor Fish MD Unavailable Unavailable Pastor Fsih MD Unavailable Unavailable Pastor Fish MD Unavailable Unavailable Pastor Fish MD Unavailable Unavailable Pastor Fish MD Unavailable Unavailable Pastor Fish MD Unavailable Unavailable Pastor Fish MD Unavailable Unavailable Nancy Johnson PA Unavailable Unavailable Nancy Johnsonatt PA Unavailable Unavailable Nancy Johnsonatt PA Unavailable Unavailable Nancy Johnsonatt PA Unavailable Unavailable Alex M Triciaatt PA Unavailable Unavailable Alex M Triciaatt PA Unavailable Unavailable Alex M Barratt PA Unavailable Unavailable Johnson, M Barratt PA Unavailable Unavailable Johnson, M Barratt PA Unavailable Unavailable Alex, M Barratt PA Unavailable Unavailable Johnson, M Barratt PA Unavailable Unavailable Johnson, M Barratt PA Unavailable Unavailable Johnson, M Barratt PA Unavailable Unavailable Alex, M Barratt PA Unavailable Unavailable Johnson, M Barratt PA Unavailable Unavailable Alex, M Barratt PA Unavailable Unavailable Alex, M Barratt PA Unavailable Unavailable Johnson, M Barratt PA Unavailable Unavailable Alex M Triciaatt PA Unavailable Unavailable Alex, M Barratt PA Unavailable Unavailable Alex Nancy Triciaatt PA Unavailable Unavailable Nancy Johnson Triciaatt PA Unavailable Unavailable JohnsonNancy PA Unavailable Unavailable JohnsonNancyatt PA Unavailable Unavailable JohnsonNancyatt PA Unavailable Unavailable Johnson, Nancy Barratt PA Unavailable Unavailable Johnson, Nancy Clarkeatt PA Unavailable Unavailable Re-disclosure Warning The records that you are about to access may contain information from federally-assisted alcohol or drug abuse programs. If such information is present, then the following federally mandated warning applies: This information has been disclosed to you from records protected by federal confidentiality rules (42 CFR part 2). The federal rules prohibit you from making any further disclosure of this information unless further disclosure is expressly permitted by the written consent of the person to whom it pertains or as otherwise permitted by 42 CFR part 2. A general authorization for the release of medical or other information is NOT sufficient for this purpose. The Federal rules restrict any use of the information to criminally investigate or prosecute any alcohol or drug abuse patient.The records that you are about to access may contain highly sensitive health information, the redisclosure of which is protected by Article 27-F of the [facility] Public Health law. If you continue you may have access to information: Regarding HIV / AIDS; Provided by facilities licensed or operated by the [facility] Office of Mental Health; or Provided by the [facility] Office for People With Developmental Disabilities. If such information is present, then the following [facility] mandated warning applies: This information has been disclosed to you from confidential records which are protected by state law. State law prohibits you from making any further disclosure of this information without the specific written consent of the person to whom it pertains, or as otherwise permitted by law. Any unauthorized further disclosure in violation of state law may result in a fine or penitentiary sentence or both. A general authorization for the release of medical or other information is NOT sufficient authorization for further disc losure. Allergies and Adverse Reactions Type Description Substance Reaction Status Data Source(s ) No Known Drug Allergies No Known Drug Allergies No Known Drug Aller gies active NETSMART ([facility] ) Family History Family Member Name Family Member Gender Family Member Status Date o f Status Description Data Source(s) Unknown Female Problem MEDENT ([facility]) Encounters Encounter Providers Location Date Indications Data Source(s ) OFFICE OUTPATIENT NEW 30 MINUTES Attender: Mayte NIXON Ph ysical Therapy 10/03/2020 02:30:00 PM EST MEDENT ([facility]) Outpatient [address] [facility] [address] 06/14/2020 12:00:00 AM EDT eCW1 ([facility]) (WND STRTCH) Stretcher Required Patients [address] [place] [address] 06/13/2020 12:00:00 AM EDT eCW1 ([facility]) Outpatient [address] [facility] [address] 03/28/2020 12:00:00 AM EDT eCW1 ([facility]) (WND STRTCH) Stretcher Required Patients [address] [place] [address] 03/21/2020 12:00:00 AM EDT eCW1 ([facility]) (WND STRTCH) Stretcher Required Patients [address] [place] [address] 03/14/2020 12:00:00 AM EDT eCW1 ([facility]) (WND STRTCH) Stretcher Required Patients [address] [place] [address] 02/22/2020 12:00:00 AM EDT eCW1 ([facility]) (WND STRTCH) Stretcher Required Patients [address] [place] [address] 02/15/2020 12:00:00 AM EDT eCW1 ([facility]) (WND STRTCH) Stretcher Required Patients [address] [place] [address] 02/08/2020 12:00:00 AM EDT eCW1 ([facility]) Unknown [address] [facility] [address] 02/07/2020 12:00:00 AM EDT eCW1 ([facility]) Unknown [address] [facility] [address] 02/06/2020 12:00:00 AM EDT eCW1 ([facility]) (WND STRTCH) Stretcher Required Patients [address] [place] [address] 2020 12:00:00 AM EDT eCW1 ([facility]) [facility] [address] [facility] [address] 01/25/2020 12:00:00 AM EDT eCW1 ([facility]) [facility] [address] [facility] [address] 01/17/2020 12:00:00 AM EDT eCW1 ([facility]) [facility] [address] [facility] [address] 01/11/2020 12:00:00 AM EDT eCW1 ([facility]) [facility] [address] [facility] [address] 01/04/2020 12:00:00 AM EDT eCW1 ([facility]) [place] [address] [facility] [address] 01/02/2020 12:00:00 AM EDT eCW1 ([facility]) [facility] [place] [address] [facility] [address] 12/28/2019 12:00:00 AM EDT eCW1 ([facility]) [place] [address] [facility] [address] 12/28/2019 12:00:00 AM EDT eCW1 ([facility]) 12/27/2019 01:00:00 AM EDT - 020 12:59:20 PM EDT NETSMART ([facility]) [facility] [place] [address] [facility] [address] 12/27/2019 12:00:00 AM EDT eCW1 ([facility]) [facility] [place] [address] [facility] [address] 12/27/2019 12:00:00 AM EDT eCW1 ([facility]) [facility] [place]ound [facility] [address] [facility] [address] 12/22/2019 12:00:00 AM EDT eCW1 ([facility]) [facility]ound [facility] [address] [facility] [address] 12/21/2019 12:00:00 AM EDT eCW1 ([facility]) [facility] [place]rology [address] [facility] [address] 12/18/2019 12:00:00 AM EDT eCW1 ([facility]) [facility] [place]ound [facility] [address] [facility] [address] 12/14/2019 12:00:00 AM EDT eCW1 ([facility]) Outpatient Referrer: Pastor Fish MD 12/13/2019 05: 53:00 AM EDT [facility] Urology [address] [facility] [address] 12/13/2019 12:00:00 AM EDT eCW1 ([facility]) [facility] [place] [address] [facility] [address] 12/08/2019 12:00:00 AM EDT eCW1 ([facility]) [facility] [place]rology [address] [facility] [address] 12/07/2019 12:00:00 AM EDT eCW1 ([facility]) [facility] [place]ound [facility] [address] [facility] [address] 12/07/2019 12:00:00 AM EDT eCW1 ([facility]) [facility] [place] [address] [facility] [address] 12/07/2019 12:00:00 AM EDT eCW1 ([facility]) [facility] Urology [address] [facility] [address] 11/27/2019 12:00:00 AM EDT eCW1 ([facility]) [facility] [place] [address] [facility] [address] 11/17/2019 12:00:00 AM EDT eCW1 ([facility]) [facility] [place]at [address] [facility] [address] 11/17/2019 12:00:00 AM EDT eCW1 ([facility]) Medications Medication Brand Name Start Date Product Form Dose Route Admi nistrative Instructions Pharmacy Instructions Status Indications Reaction Description Data Source(s) 800 mg 09/16/2020 12:00:00 AM EST tablet 15 TAKE ONE TABLET BY MOUTH THREE TIMES A DAY FOR 5 DAYS TAKE ONE TABLET BY MOUTH THREE TIMES A DAY FOR 5 DAYS SOLD: 09/16/2020 [facility] Cyclobenzaprine hydrochloride 10 MG Oral Tablet CYCLOBENZAPR INE HCL 09/16/2020 12:00:00 AM EST tablet 10 TAKE ONE TABLET BY MOUTH AT BEDTIME FOR 10 DAYS TAKE ONE TABLET BY MOUTH AT BEDTIME FOR 10 DAYS SOLD: 09/16/2020 [facility] atorvastatin 80 MG Oral Tablet ATORVASTATIN CALCIUM 06/14/2020 1 2:00:00 AM EDT tablet 30 TAKE ONE TABLET BY MOUTH EVERY D AY TAKE ONE TABLET BY MOUTH EVERY DAY SOLD: 06/14/2020 [facility] carvedilol 6.25 MG Oral Tablet CARVEDILOL 06/14/2020 12:00:00 AM EDT tablet 60 TAKE ONE TABLET BY MOUTH TWICE A DAY TAKE ONE TABLET BY MOUT H TWICE A DAY SOLD: 06/14/2020 [facility] 1,250 mcg (50,000 unit) 06/14/2020 12:00:00 AM EDT capsule 4 TAKE 1 CAPSULE BY MOUTH ONCE WEEKLY WITH A MEAL TAKE 1 CAPSULE BY MOUTH ONCE WEEKLY WITH A MEAL SOLD: 06/14/2020 [facility] 25 mg 03/18/2020 12:00:00 AM EDT tablet 20 TAKE ONE TABLET BY MOUTH EVERY DAY TAKE ONE TABLET BY MOUTH EVERY DAY SOLD: 03/18/2020 [facility] 80 mg 12/29/2019 12:00:00 AM EDT tablet 30 TAKE ONE TABLET BY MOUTH EVERY DAY TAKE ONE TABLET BY MOUTH EVERY DAY SOLD: 12/29/2019 [facility] carvedilol 6.25 MG Oral Tablet CARVEDILOL 12/29/2019 12:00:00 AM EDT tablet 60 TAKE ONE TABLET BY MOUTH TWICE A DAY TAKE ONE TABLET BY MOUT H TWICE A DAY SOLD: 12/29/2019 [facility] Carvedilol 6.25 MG Carvedilol 12/27/2019 01:00:00 AM EDT completed NETSMART ([facility]) Aspirin Low Dose 81 MG Aspirin Low Dose 12/27/2019 01:00:00 AM EDT completed NETSMART ([facility]) Atorvastatin Calcium 80 MG Atorvastatin Calcium 12/27/2019 01:00:00 A M EDT completed NETSMART ( [facility]) . UNIT 11/25/2019 12:00:00 AM EDT misc 84 TAKE ONE CAPSULE BY MOUTH FOUR TIMES A DAY WITH MEALS AND AT BEDTIME TAKE ONE CAPSULE BY MOUTH FOUR TIMES A D AY WITH MEALS AND AT BEDTIME SOLD: 12/04/2019 [facility] 750 mg 11/25/2019 12:00:00 AM EDT tablet 14 TAKE ONE TABLET BY MOUTH EVERY DAY TAKE ONE TABLET BY MOUTH EVERY DAY SOLD: 12/04/2019 [facility] Nystatin 623012 UNT/ML Topical Cream Nystatin 697448 U NIT/GM Nystatin 029878 UNIT/GM 11/17/2019 12:00:00 AM EDT active 1 application to groin eCW1 ([facility]) Nystatin 639253 UNT/ML Topical Cream Nystatin 369619 U NIT/GM Nystatin 972500 UNIT/GM 11/17/2019 12:00:00 AM EDT active 1 application to groin eCW1 ([facility]) Nystatin 813586 UNT/ML Topical Cream Nystatin 022728 U NIT/GM Nystatin 851383 UNIT/GM 11/17/2019 12:00:00 AM EDT active 1 application to groin eCW1 ([facility]) 100,000 unit/gram 11/17/2019 12:00:00 AM EDT cream 30 APPLY TO GROIN TWO TIMES A DAY APPLY TO GROIN TWO TIMES A DAY SOLD: 11/17/2019 [facility] Nystatin 614285 UNT/ML Topical Cream Nystatin 841983 U NIT/GM Nystatin 986817 UNIT/GM 11/17/2019 12:00:00 AM EDT active 1 application to groin eCW1 ([facility]) 75 mg 11/16/2019 12:00:00 AM EDT capsule 10 TAKE ONE CAPSULE BY MOUTH TWICE A DAY FOR 5 DAYS TAKE ONE CAPSULE BY MOUTH TWICE A DAY FOR 5 DAYS SOLD: 11/16/2019 [facility] Insurance Providers Payer name Policy type / Coverage type Policy ID Covered constitution party ID Covered constitution party's relationship to ruiz Policy Ruiz Plan Information [facility] COMMUNITY PLAN [facility] [id number] SP [id number] [facility] O [id number] S [id number] [facility] COMMUNITY PLAN [facility] [id number] SP [id number] SELF PAY ONLY [id number] SP [id number] COMMUNITY PLAN [facility] [id number] SP [id number] [facility] COMMUNITY PLAN [facility] [id number] SP [id number] MEDICAID [id number] SP [id number] [place] P[place] 302/307 [id number] ANSI-Medicaid [id number] ANSI-Medicaid [id number] ANSI-Medicaid [id number] ANSI-Commercial [id number] ANSI-Commercial [id number] ANSI-Commercial [id number] ANSI-Commercial [id number] ANSI-Medicaid [id number] ANSI-Commercial [id number] ANSI-Medicaid [id number] ANSI-Commercial [id number] [place] PPO 302/307 [id number] WI2 [id number] [employer] BCBS B [id number] P VYS [id number] [place] PPO 302/307 [id number] [employer] BCBS Health Maintenance Organization (HMO) [id number] Family Dependent [id number] [employer] BC[employer] B [id number] P VYS [id number] [facility] [id number] [place] [id number] [facility] [id number] SP [id number] [facility] [id number] SP [id number] [facility] [id number] SP [id number] [facility] COMMUNITY PLAN [facility] [id number] SP [id number] Proclaim (DO Not Use!!) Commercial [id number] Family Dependen t [id number] [facility] Community Plan Medigap Part B [id number] Self [id number] [facility] Medicaid/CHP/FHP Commercial [id number] Self [id number] [facility] [id number] SP [id number] [facility] COMMUNITY PLAN [facility] [id number] SP [id number] [facility] O [id number] S [id number] Proclaim (DO Not Use!!) Commercial Family Dependen t [facility] Community Plan Commercial Self [employer] BCBS B [id number] S [id number] BCBS OF [place] 306/806 [id number] [place] [id number] [place] PPO 302/307 [id number] [place] [id number] BC[place] 306/806 [id number] [place] [id number] BC[place] PPO 302/307 [id number] [id number] [id number] [id number] [place] [id number] Problems, Conditions, and Diagnoses Code Display Name Description Problem Type Effective Dates Data Source(s) L73.9 [id number] Folliculitis Problem 06/13/2020 12:00:00 AM EDT eCW1 ([facility]) 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 Problem 03/28/2020 12:00:00 AM EDT eCW1 ([facility]) T81.89XD [id number] Other complications of procedures, not elsewhere classified, subsequent encounter Problem 03/25/2020 12:00:00 AM EDT eCW1 ([facility]) I25.10 Atherosclerotic heart diseas e of [place] coronary artery without angina pectoris Atherosclerotic heart disease of [place] coronary artery without angina pectoris Problem 12/26/2019 01:00:00 AM EDT NETSMART ([facility]) I10 Essential (primary) hypertension Essential (primary) h ypertension Problem 12/26/2019 01:00:00 AM EDT NETSMART ([facility] ) E66.01 Morbid (severe) obesity due to excess ca lories Morbid (severe) obesity due to excess calories Problem 12/26/2019 01:00:00 AM EDT NETSMART ( [facility]) G47.33 Obstructive sleep apnea (adult) (pediatr ic) Obstructive sleep apnea (adult) (pediatric) Problem 12/26/2019 01:00:00 AM EDT NETSMART ([facility]) Z91.81 History of falling History of falling Problem 0 01:00:00 AM EDT NETSMART ([facility]) Z79.82 custodial (current) use of aspirin custodial (cu rrent) use of aspirin Problem 12/26/2019 01:00:00 AM EDT NETSMART ([facility]) Z68.43 Body mass index (BMI) 50.0-59.9, adult B sukumar mass index (BMI) 50.0-59.9, adult Problem 12/26/2019 01:00:00 AM EDT NETSMART ([facility]) 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 Problem 12/20/2019 01:00:00 AM EDT NETSMART ([facility]) I10 Essential hypertension Essential (primary) hypertensio n Problem 12/14/2019 12:00:00 AM EDT eCW1 ([facility]) I10 Essential hypertension Essential (primary) hypertensio n Problem 12/14/2019 12:00:00 AM EDT eCW1 ([facility]) Surgeries/Procedures Procedure Description Date Indications Data Source(s) THERAPEUTIC PX 1/> AREAS EACH 15 MIN EXERCISES 021 12:00:00 AM EST MEDENT ([facility] ) Physical Therapy Eval - Low Complexity 10/21/2020 12:0 0:00 AM EST MEDENT ([facility] ) FINE NEEDLE ASPIRATION W/O IMAGING GUIDANCE 03/21/2020 12:00:00 AM EDT eCW1 ([facility]) FINE NEEDLE ASPIRATION W/O IMAGING GUIDANCE 03/14/2020 12:00:00 AM EDT eCW1 ([facility]) FINE NEEDLE ASPIRATION W/O IMAGING GUIDANCE 02/22/2020 12:00:00 AM EDT eCW1 ([facility]) FINE NEEDLE ASPIRATION W/O IMAGING GUIDANCE 02/15/2020 12:00:00 AM EDT eCW1 ([facility]) FINE NEEDLE ASPIRATION W/O IMAGING GUIDANCE 02/08/2020 12:00:00 AM EDT eCW1 ([facility]) FINE NEEDLE ASPIRATION W/O IMAGING GUIDANCE 2020 12:00:00 AM EDT eCW1 ([facility]) Office Visit, Est Pt., Level 2 FC 01/25/2020 12:00:00 AM EDT eCW1 ([facility]) Office Visit, Est Pt., Level 3 PC 01/25/2020 12:00:00 AM EDT eCW1 ([facility]) SOHAM SUBQ TISSUE 20 SQ CM/< 01/17/2020 12:00:00 AM EDT eCW1 ([facility]) Office Visit, Est Pt., Level 3 FC 01/11/2020 12:00:00 AM EDT eCW1 ([facility]) Office Visit, Est Pt., Level 4 FC 12/21/2019 12:00:00 AM EDT eCW1 ([facility]) Office Visit, New Pt., Level 5 FC 12/14/2019 12:00:00 AM EDT eCW1 ([facility]) Office Visit, New Pt., Level 4 PC 12/14/2019 12:00:00 AM EDT eCW1 ([facility]) Social History Code Duration Value Status Description Data Source(s ) Smoking 06/14/2020 12:00:00 AM EDT Never Smoker completed Never S moker eCW1 ([facility]) Smoking 06/14/2020 12:00:00 AM EDT Never Smoker completed Never S moker eCW1 ([facility]) Smoking 03/28/2020 12:00:00 AM EDT Never Smoker completed Never S moker eCW1 ([facility]) Smoking 03/28/2020 12:00:00 AM EDT Never Smoker completed Never S moker eCW1 ([facility]) Smoking 03/21/2020 12:00:00 AM EDT Never Smoker completed Never S moker eCW1 ([facility]) Smoking 02/22/2020 12:00:00 AM EDT Never Smoker completed Never S moker eCW1 ([facility]) Smoking 02/15/2020 12:00:00 AM EDT Never Smoker completed Never S moker eCW1 ([facility]) Smoking 02/15/2020 12:00:00 AM EDT Never Smoker completed Never S moker eCW1 ([facility]) Smoking 02/15/2020 12:00:00 AM EDT Never Smoker completed Never S moker eCW1 ([facility]) Smoking 02/08/2020 12:00:00 AM EDT Never Smoker completed Never S moker eCW1 ([facility]) Smoking 02/08/2020 12:00:00 AM EDT Never Smoker completed Never S moker eCW1 ([facility]) Vital Signs ID Date Data Source UNK Name Value Range Interpretation Code Description Data Source(s) Body height 70 [in_i] 70 [in_i] MEDENT ([facility]) 5'10" Body temperature 96.6 [degF] 96.6 [degF] MEDENT ([facility] ) Diastolic blood pressure 70 mm[Hg] 70 mm[Hg] eCW1 ([facility]) Systolic blood pressure 122 mm[Hg] 122 mm[Hg] e CW1 ([facility]) Body temperature 97.5 [degF] 97.5 [degF] eCW1 ( [facility]) Respiratory rate 20 /min 20 /min eCW1 ([facility]) Heart rate 84 /min 84 /min eCW1 ([facility]) Body mass index (BMI) [Ratio] 66.68 kg/m2 66.68 kg/m2 W1 ([facility]) Body height 70 [in_i] 70 [in_i] eCW1 ([facility]) Body weight 464.8 [lb_av] 464.8 [lb_av] eCW1 ([facility]) Diastolic blood pressure 68 mm[Hg] 68 mm[Hg] eCW1 ([facility]) Systolic blood pressure 120 mm[Hg] 120 mm[Hg] e CW1 ([facility]) Body temperature 96.6 [degF] 96.6 [degF] eCW1 ( [facility]) Respiratory rate 18 /min 18 /min eCW1 ([facility]) Heart rate 82 /min 82 /min eCW1 ([facility]) Body mass index (BMI) [Ratio] 60.97 kg/m2 60.97 kg/m2 eCW1 ([facility]) Body height 70 [in_i] 70 [in_i] eCW1 ([facility]) Body weight kg eCW1 ([facility]) Body weight 425 [lb_av] 425 [lb_av] eCW1 ([facility]) Diastolic blood pressure mm[Hg] eCW1 ([facility]) Systolic blood pressure 122 mm[Hg] 122 mm[Hg] e CW1 ([facility]) Body temperature 98.2 [degF] 98.2 [degF] eCW1 ( [facility]) Respiratory rate 19 /min 19 /min eCW1 ([facility]) Heart rate 70 /min 70 /min eCW1 ([facility]) Body mass index (BMI) [Ratio] 65.85 kg/m2 65.85 kg/m2 W1 ([facility]) Body height 70 [in_i] 70 [in_i] eCW1 ([facility]) Body weight 459 [lb_av] 459 [lb_av] eCW1 ([facility]) Diastolic blood pressure 68 mm[Hg] 68 mm[Hg] eCW1 ([facility]) Systolic blood pressure 143 mm[Hg] 143 mm[Hg] e CW1 ([facility]) Body temperature 97.3 [degF] 97.3 [degF] eCW1 ( [facility]) Respiratory rate 16 /min 16 /min eCW1 ([facility]) Heart rate 75 /min 75 /min eCW1 ([facility]) Body mass index (BMI) [Ratio] 60.83 kg/m2 60.83 kg/m2 W1 ([facility]) Body height 70 [in_i] 70 [in_i] eCW1 ([facility]) Body weight kg eCW1 ([facility]) Body weight 424 [lb_av] 424 [lb_av] eCW1 ([facility]) Diastolic blood pressure 71 mm[Hg] 71 mm[Hg] eCW1 ([facility]) Systolic blood pressure 154 mm[Hg] 154 mm[Hg] e CW1 ([facility]) Body temperature 97.2 [degF] 97.2 [degF] eCW1 ( [facility]) Respiratory rate 18 /min 18 /min eCW1 ([facility]) Heart rate 74 /min 74 /min eCW1 ([facility]) Body mass index (BMI) [Ratio] 60.83 kg/m2 60.83 kg/m2 eCW1 ([facility]) Body height 70 [in_i] 70 [in_i] eCW1 ([facility]) Body weight kg eCW1 ([facility]) Body weight 424 [lb_av] 424 [lb_av] eCW1 ([facility]) Diastolic blood pressure 69 mm[Hg] 69 mm[Hg] eCW1 ([facility]) Systolic blood pressure 133 mm[Hg] 133 mm[Hg] e CW1 ([facility]) Body temperature 97.3 [degF] 97.3 [degF] eCW1 ( [facility]) Respiratory rate 20 /min 20 /min eCW1 ([facility]) Heart rate 70 /min 70 /min eCW1 ([facility]) Body mass index (BMI) [Ratio] 60.83 kg/m2 60.83 kg/m2 eCW1 ([facility]) Body height 70 [in_i] 70 [in_i] eCW1 ([facility]) Body weight kg eCW1 ([facility]) Body weight 424 [lb_av] 424 [lb_av] eCW1 ([facility]) Diastolic blood pressure 78 mm[Hg] 78 mm[Hg] eCW1 ([facility]) Systolic blood pressure 144 mm[Hg] 144 mm[Hg] e CW1 ([facility]) Body temperature 97.3 [degF] 97.3 [degF] eCW1 ( [facility]) Respiratory rate 20 /min 20 /min eCW1 ([facility]) Heart rate 73 /min 73 /min eCW1 ([facility]) Body mass index (BMI) [Ratio] 60.83 kg/m2 60.83 kg/m2 eCW1 ([facility]) Body height 70 [in_i] 70 [in_i] eCW1 ([facility]) Body weight kg eCW1 ([facility]) Body weight 424 [lb_av] 424 [lb_av] eCW1 ([facility]) Diastolic blood pressure 78 mm[Hg] 78 mm[Hg] eCW1 ([facility]) Systolic blood pressure 177 mm[Hg] 177 mm[Hg] e CW1 ([facility]) Body temperature 98.4 [degF] 98.4 [degF] eCW1 ( [facility]) Respiratory rate 20 /min 20 /min eCW1 ([facility]) Heart rate 85 /min 85 /min eCW1 ([facility]) Body mass index (BMI) [Ratio] 60.83 kg/m2 60.83 kg/m2 eCW1 ([facility]) Body height 70 [in_i] 70 [in_i] eCW1 ([facility]) Body weight kg eCW1 ([facility]) Body weight 424 [lb_av] 424 [lb_av] eCW1 ([facility]) Diastolic blood pressure 63 mm[Hg] 63 mm[Hg] eCW1 ([facility]) Systolic blood pressure 140 mm[Hg] 140 mm[Hg] e CW1 ([facility]) Body temperature 98.6 [degF] 98.6 [degF] eCW1 ( [facility]) Respiratory rate 20 /min 20 /min eCW1 ([facility]) Heart rate 86 /min 86 /min eCW1 ([facility]) Body mass index (BMI) [Ratio] 60.83 kg/m2 60.83 kg/m2 eCW1 ([facility]) Body height 70 [in_i] 70 [in_i] eCW1 ([facility]) Body weight kg eCW1 ([facility]) Body weight 424 [lb_av] 424 [lb_av] eCW1 ([facility]) Diastolic blood pressure 71 mm[Hg] 71 mm[Hg] eCW1 ([facility]) Systolic blood pressure 139 mm[Hg] 139 mm[Hg] e CW1 ([facility]) Body temperature 98.4 [degF] 98.4 [degF] eCW1 ( [facility]) Respiratory rate 16 /min 16 /min eCW1 ([facility]) Heart rate 88 /min 88 /min eCW1 ([facility]) Body mass index (BMI) [Ratio] 60.83 kg/m2 60.83 kg/m2 eCW1 ([facility]) Body height 70 [in_us] 70 [in_us] eCW1 ([facility]) Body weight Measured 424 [lb_av] 424 [lb_av] eC W1 ([facility]) Diastolic blood pressure 75 mm[Hg] 75 mm[Hg] eCW1 ([facility]) Systolic blood pressure 140 mm[Hg] 140 mm[Hg] e CW1 ([facility]) Body temperature 96.6 [degF] 96.6 [degF] eCW1 ( [facility]) Respiratory rate 18 /min 18 /min eCW1 ([facility]) Heart rate 84 /min 84 /min eCW1 ([facility]) Body mass index (BMI) [Ratio] 60.83 kg/m2 60.83 kg/m2 eCW1 ([facility]) Body height 70 [in_us] 70 [in_us] eCW1 ([facility]) Body weight Measured [lb_av] eCW1 ([facility]) Diastolic blood pressure 81 mm[Hg] 81 mm[Hg] eCW1 ([facility]) Systolic blood pressure 129 mm[Hg] 129 mm[Hg] e CW1 ([facility]) Body temperature 97.6 [degF] 97.6 [degF] eCW1 ( [facility]) Respiratory rate 20 /min 20 /min eCW1 ([facility]) Heart rate 80 /min 80 /min eCW1 ([facility]) Body mass index (BMI) [Ratio] 60.83 kg/m2 60.83 kg/m2 eCW1 ([facility]) Body height 70 [in_us] 70 [in_us] eCW1 ([facility]) Body weight Measured 424 [lb_av] 424 [lb_av] eC W1 ([facility]) Diastolic blood pressure 79 mm[Hg] 79 mm[Hg] eCW1 ([facility]) Systolic blood pressure 141 mm[Hg] 141 mm[Hg] e CW1 ([facility]) Body temperature 97 [degF] 97 [degF] eCW1 ([facility]) Respiratory rate 20 /min 20 /min eCW1 ([facility]) Heart rate 80 /min 80 /min eCW1 ([facility]) Body mass index (BMI) [Ratio] 60.83 kg/m2 60.83 kg/m2 eCW1 ([facility]) Body height 70 [in_us] 70 [in_us] eCW1 ([facility]) Body weight Measured 424 [lb_av] 424 [lb_av] eC W1 ([facility]) Diastolic blood pressure 80 mm[Hg] 80 mm[Hg] eCW1 ([facility]) Systolic blood pressure 130 mm[Hg] 130 mm[Hg] e CW1 ([facility]) Body temperature 97.8 [degF] 97.8 [degF] eCW1 ( [facility]) Respiratory rate 20 /min 20 /min eCW1 ([facility]) Heart rate 91 /min 91 /min eCW1 ([facility]) Body mass index (BMI) [Ratio] 60.89 kg/m2 60.89 kg/m2 eCW1 ([facility]) Body height 70 [in_us] 70 [in_us] eCW1 ([facility]) Body weight Measured 424.4 [lb_av] 424.4 [lb_av ] eCW1 ([facility]) Diastolic blood pressure 69 mm[Hg] 69 mm[Hg] eCW1 ([facility]) Systolic blood pressure 133 mm[Hg] 133 mm[Hg] e CW1 ([facility]) Body temperature 97.5 [degF] 97.5 [degF] eCW1 ( [facility]) Respiratory rate 22 /min 22 /min eCW1 ([facility]) Heart rate 92 /min 92 /min eCW1 ([facility]) Body mass index (BMI) [Ratio] 58.82 kg/m2 58.82 kg/m2 eCW1 ([facility]) Body height 70 [in_us] 70 [in_us] eCW1 ([facility]) Body weight Measured 410 [lb_av] 410 [lb_av] eC W1 ([facility]) Diastolic blood pressure 67 mm[Hg] 67 mm[Hg] eCW1 ([facility]) Systolic blood pressure 144 mm[Hg] 144 mm[Hg] e CW1 ([facility]) Body temperature 97.1 [degF] 97.1 [degF] eCW1 ( [facility]) Respiratory rate 20 /min 20 /min eCW1 ([facility]) Heart rate 83 /min 83 /min eCW1 ([facility]) Body mass index (BMI) [Ratio] 58.82 kg/m2 58.82 kg/m2 eCW1 ([facility]) Body height 70 [in_us] 70 [in_us] eCW1 ([facility]) Body weight Measured 410 [lb_av] 410 [lb_av] eC W1 ([facility]) Diastolic blood pressure 72 mm[Hg] 72 mm[Hg] eCW1 ([facility]) Systolic blood pressure 128 mm[Hg] 128 mm[Hg] e CW1 ([facility]) Body temperature 96.4 [degF] 96.4 [degF] eCW1 ( [facility]) Respiratory rate 20 /min 20 /min eCW1 ([facility]) Heart rate 97 /min 97 /min eCW1 ([facility]) Body mass index (BMI) [Ratio] 58.82 kg/m2 58.82 kg/m2 eCW1 ([facility]) Body height 70 [in_us] 70 [in_us] eCW1 ([facility]) Body weight Measured 410 [lb_av] 410 [lb_av] eC W1 ([facility]) Diastolic blood pressure 76 mm[Hg] 76 mm[Hg] eCW1 ([facility]) Systolic blood pressure 130 mm[Hg] 130 mm[Hg] e CW1 ([facility]) Body temperature 98.9 [degF] 98.9 [degF] eCW1 ( [facility]) Respiratory rate 22 /min 22 /min eCW1 ([facility]) Heart rate 106 /min 106 /min eCW1 ([facility]) Body mass index (BMI) [Ratio] 63.41 kg/m2 63.41 kg/m2 eCW1 ([facility]) Body height 70 [in_us] 70 [in_us] eCW1 ([facility]) Body weight Measured 442.0 [lb_av] 442.0 [lb_av ] eCW1 ([facility]) Patient Treatment Plan of Care Planned Activity Planned Date Details Description Data Source (s) Carvedilol 6.25 MG 12/27/2019 01:00:00 AM EDT [facility] ([facility]) Aspirin Low Dose 81 MG 12/27/2019 01:00:00 [facility] Atorvastatin Calcium 80 MG 12/27/2019 01:00[facility] Nystatin [id number] UNT/ML Topical Cream 11/17/2019 12:00:00 AM EDT eCW1 ([facility])
--- NOTE | 2020-10-31 13:22 | REP ---
INDICATION: SOB. COMPARISON: Comparison chest x-ray November 09, 2016.. TECHNIQUE: Sitting AP portable chest x-ray. FINDINGS: The left lateral pleural angle is excluded from the field of view. The lungs appear well inflated and clear. Pleural angles are otherwise sharp. Heart size is normal. Pulmonary vasculature is not increased. No significant bony abnormality is seen. IMPRESSION: No active disease seen. Left lateral pleural angle is excluded from the field of view. <Electronically signed by Rikki Booth > 10/31/20 [id number]
[2020-10-31] MEDS ORDERED: AMIODARONE HCL 360 MG in IV 1 EA IV SCH (13:35)
[2020-10-31 14:13] LABS: RSV AMPLIFICATION NEGATIVE (NEGATIVE)
[2020-10-31 14:58] VITALS: BP 131/53
[2020-10-31] MEDS ORDERED: CARVedilol 6.25 MG TAB PO ONE (15:00)
[2020-10-31 15:06] VITALS: BP 106/53
--- NOTE | 2020-10-31 19:42 | ECGEPIP ---
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
--- NOTE | 2020-11-01 16:59 | ECGEPIP ---
[facility] - ED Test Date: 2020-10-31 Pat Name: MARY ANN GRADY Department: Room: - Gender: Male Vp Client Services: jose : 1955 Requested By: Pedro Fontaine Order Number: [id number] Reading MD: Michael Simpson Measurements Intervals [place] Rate: 106 P: MO: 216 QRS: -72 QRSD: 90 T: 64 QT: 354 QTc: 470 Interpretive Statements Sinus tachycardia with 1st degree AV block Left axis deviation Nonspecific ST abnormality Pattern consistent with pulmonary disease Previous tracing done 10-31-20 was a wide complex tachycardia Electronically Signed on 11-01-2020 16:59:10 EST by Michael Simpson
== END 2020-10-31 15:12 | disposition short-term general hospital (02) ==
LOC: EDBD 10:49 → M ED 10:49
DX: I47.2 Ventricular tachycardia (principal); E11.9 Type 2 diabetes mellitus without complications; I10 Essential (primary) hypertension; Z79.899 Other long term (current) drug therapy; E78.5 Hyperlipidemia, unspecified; G47.33 Obstructive sleep apnea (adult) (pediatric); E66.9 Obesity, unspecified; Z95.5 Presence of coronary angioplasty implant and graft; Z79.82 Long term (current) use of aspirin
CPT/HCPCS: 71045; 80047; 83735; 84443; 85027; 85610; 85730; 87631; 93005; 96365; 96366; 96375; 99291; 99292; J0153; J0282

== ENCOUNTER → 2020-12-25 | Outpatient (CLI) | payer OTHER | LOC: M RADPRO 09:18 | PROVIDERS: ATTEND Physician Assistant | DX: Z53.9 Procedure and treatment not carried out, unspecified reason (principal) ==

== ENCOUNTER 2021-02-27 18:22 | Observation (INO) | payer MEDICARE, OTHER ==
[~2021-02-27] VITALS: Ht 182.9 cm; Wt 204.6 kg
[2021-02-28] MEDS ORDERED: PIPERACILLIN/TAZOBACTAM SOD 3.375 GM in D5W MINI-BAG PLUS 50 ML IV ONE (00:05)
[2021-02-28] MEDS ORDERED: NS 500 ML IV ONE (00:05)
--- NOTE | 2021-02-28 00:36 | REPVR ---
PROCEDURE INFORMATION: Exam: US Pelvis Limited, Transabdominal, Soft tissue Exam date and time: 02/27/2021 11:31 PM Age: 66 years old Clinical indication: Mass, lump, or swelling; Other: Perineum; Additional info: Firm draining area to left groin TECHNIQUE: Imaging protocol: Real-time transabdominal pelvic ultrasound with image documentation. Limited exam. Exam focused on the soft tissue. COMPARISON: CT ABD/PEL W/IV CONTRAST ONLY 11/18/2019 9:09 PM FINDINGS: Soft tissues: Ill-defined 4.6 x 2 x 4 cm left groin lesion containing solid and fluid components with mild associated vascularity. Multiple echogenic foci within the lesion are suggestive of gas droplets. IMPRESSION: Combination of findings suggestive of an organizing phlegmon as discussed above. Electronically signed by: Ubaldo Oh On 02/28/2021 00:35:35 AM
[2021-02-28 00:52] LABS: BASO # 0.1 10^3/uL (0.0-0.2); BASO % 0.5 % (0.0-1.0); EOS # 0.2 10^3/uL (0.0-0.5); EOS % 1.6 % (0.0-3.0); HEMATOCRIT 43.8 % (42.0-52.0); HEMOGLOBIN 14.8 g/dl (13.5-17.5); LYMPH # 1.5 10^3/uL (1.5-5.0); LYMPH % 14.2 % (24.0-44.0); MEAN CORPUSCULAR HGB CONC 33.8 g/dl (32.0-36.5); MEAN CORPUSCULAR VOLUME 91.8 fl (80.0-96.0); MONO # 1.1 10^3/uL (0.0-0.8); MONO % 10.2 % (2.0-8.0); NEUTROPHILS # 7.8 10^3/uL (1.5-8.5); PLATELET COUNT, AUTOMATED 210 10^3/uL (150-450); RED BLOOD COUNT 4.77 10^6/uL (4.30-6.10); WHITE BLOOD COUNT 10.6 10^3/uL (4.0-10.0)
[2021-02-28 01:15] LABS: ERYTHROCYTE SEDIMENTATION RATE 66 mm/hr (0-20)
[2021-02-28 01:22] LABS: ALBUMIN 2.9 GM/DL (3.2-5.2); ALT/SGPT 16 U/L (12-78); BILIRUBIN,DIRECT 0.3 MG/DL (0.0-0.2); BILIRUBIN,TOTAL 0.9 MG/DL (0.2-1.0); BLOOD UREA NITROGEN 17 MG/DL (7-18); C REACTIVE PROTEIN QUANTITATIV 6.09 MG/DL (0.00-0.30); CALCIUM LEVEL 8.3 MG/DL (8.8-10.2); CARBON DIOXIDE LEVEL 27 MEQ/L (21-32); CHLORIDE LEVEL 103 MEQ/L (98-107); CREATININE FOR GFR 0.99 MG/DL (0.70-1.30); GLOMERULAR FILTRATION RATE > 60.0 (>49); GLUCOSE, FASTING 116 MG/DL (70-100); POTASSIUM SERUM 3.7 MEQ/L (3.5-5.1); SODIUM LEVEL 136 MEQ/L (136-145); TOTAL PROTEIN 7.8 GM/DL (6.4-8.2)
[2021-02-28] MEDS ORDERED: ISOVUE-370 76% 100ML VIAL As Ordered ONE (01:54)
[2021-02-28 01:59] LABS: RSV AMPLIFICATION NEGATIVE (NEGATIVE)
[2021-02-28] MEDS ORDERED: CARV12.5 PO (02:01)
[2021-02-28] MEDS ORDERED: ERGO500029 PO (02:01)
[2021-02-28] MEDS ORDERED: ATOR40TA75 PO (02:01)
[2021-02-28] MEDS ORDERED: ASPI1CHW3 PO (02:01)
--- NOTE | 2021-02-28 02:53 | REPVR ---
PROCEDURE INFORMATION: Exam: CT Abdomen And Pelvis With Contrast Exam date and time: 02/28/2021 1:48 AM Age: 66 years old Clinical indication: Other: Draining groin abscess; Additional info: Large draining area L groin, concern tracking TECHNIQUE: Imaging protocol: Computed tomography of the abdomen and pelvis with contrast. Radiation optimization: All CT scans at this facility use at least one of these dose optimization techniques: automated exposure control; mA and/or kV adjustment per patient size (includes targeted exams where dose is matched to clinical indication); or iterative reconstruction. Contrast material: ISO; Contrast volume: 100 ml; Contrast route: INTRAVENOUS (IV); COMPARISON: CT ABD/PEL W/IV CONTRAST ONLY 11/18/2019 9:09 PM FINDINGS: Liver: Mild steatosis. Liver nodularity concerning for cirrhosis. Gallbladder and bile ducts: Layering biliary sludge or cholelithiasis. Pancreas: Normal. No ductal dilation. Spleen: Normal. No splenomegaly. Adrenal glands: Normal. No mass. Kidneys and ureters: Normal. No hydronephrosis. Stomach and bowel: Unremarkable. No obstruction. No mucosal thickening. Appendix: No evidence of appendicitis. Intraperitoneal space: Unremarkable. No free air. No significant fluid collection. Vasculature: Atherosclerotic disease of the abdominal aorta. Lymph nodes: Partially imaged inflammatory process in the left groin containing small amount of gas measures approximately 2 x 5 cm. Multiple adjacent asymmetrically enlarged left inguinal lymph nodes. Urinary bladder: Unremarkable as visualized. Reproductive: Unremarkable as visualized. Bones/joints: Anterolisthesis of L5-S1, nature. Severe multilevel facet. Soft tissues: Diastasis periumbilical abdominal wall. IMPRESSION: Partially imaged inflammatory process in the left groin containing small amount of gas measures approximately 2 x 5 cm. Multiple adjacent asymmetrically enlarged left inguinal lymph nodes. Electronically signed by: Ubaldo Oh On 02/28/2021 02:52:52 AM
[2021-02-28] MEDS ORDERED: MOM 30ML SUSPENSION UDC PO PRN (03:15)
[2021-02-28] MEDS ORDERED: MAALOX 30 ML SUSP *UDC PO PRN (03:15)
[2021-02-28] MEDS ORDERED: ACETAMINOPHEN TAB 650MG DOSE (2X325MG) PO PRN (03:15)
--- NOTE | 2021-02-28 03:18 | HPEPDOC ---
[facility] Medical History & Physical Date of Admission Feb 28, 2021 Date of Service: Feb 28, 2021 Attending Physician: MARI BANGURA MD History and Physical CHIEF COMPLAINT: [66 y/o male c/o drainage from groin x1 day] HISTORY OF PRESENT ILLNESS: [This is a 66 y/o male with a pmh of CAD, hld, htn, kathy and previous inguinal abscess who reports with cc of drainage from his groin that began on 02/27. Patient states that he was visiting with his neighbor when he sat on a bench and felt a pinching sensation in his groin. Patient states that he thought nothing of this until later at dinner when he sat down and noticed himself to be wet. Patient states that he went to the bathroom to investigate and noticed thick brown drainage that he describes as "chocolate pudding" coming from his left groin. Patient states that he cleaned himself only for this to happen one more time. Patient denies any pain throughout. Patient was concerned he was having gangrene of his groin/scrotum as he has had this before. Patient denies any pain, fevers, chills, chest pain, sob, abd pain, n/v/d/c.] PAST MEDICAL HISTORY: 1. [See HPI PAST SURGICAL HISTORY: 1. [I&D and debridement of inguinal/perineal abscess]. 2. [Right knee arthroscopy]. 3. [Left foot bone spur repair]. SOCIAL HISTORY: Tobacco use:[Denies] ETOH: [Denies] Illicit drug use: [Denies] FAMILY HISTORY: Reviewed - none pertinent ALLERGIES: Please see below. REVIEW OF SYSTEMS: CONSTITUTIONAL: [See HPI]. HEENT: [Denies uri sx]. CARDIOVASCULAR: [See HPI]. RESPIRATORY: [See HPI]. GASTROINTESTINAL: [See HPI]. GENITOURINARY: [Denies dysuria]. SKIN: [See HPI]. MUSCULOSKELETAL: [Denies acute joint/back pain]. NEUROLOGICAL: [Denies syncope, paresthesias]. ENDOCRINE: [Denies hx of DM]. HEMATOLOGIC/LYMPHATIC: [Denies easy bruising]. HOME MEDICATIONS: Please see below. PHYSICAL EXAMINATION: VITAL SIGNS: Please see below. GENERAL APPEARANCE: [This is an obese 66 y/o male who does not appear to be in any acute distress]. HEENT: [No mass or lesion. EOMI. No scleral icterus. Nares patent. oral mucosa moist]. CARDIOVASCULAR: [Regular rate, rhythm. No murmurs, rubs, gallops]. LUNGS: [Good air flow b/l. No wheezing, rales, rhonchi]. ABDOMEN: [Soft, nontender]. MUSCULOSKELETAL: [No joint deformity]. : There is erythema of the skin in the deep folds of the left groin. There is an opening in the skin that appears to be draining dark colored pus. The area is nontender. The area does not feel fluctuant. EXTREMITIES: [No peripheral edema. No overlying skin changes. Pulses intact.]. NEUROLOGICAL: [Speech clear. A+Ox3. No focal deficits]. PSYCHIATRIC: [Mood and affect appear appropriate.]. LABORATORY DATA: See below. IMAGING: [Pelvis US: FINDINGS: Soft tissues: Ill-defined 4.6 x 2 x 4 cm left groin lesion containing solid and fluid components with mild associated vascularity. Multiple echogenic foci within the lesion are suggestive of gas droplets. IMPRESSION: Combination of findings suggestive of an organizing phlegmon as discussed above. CT Abd/pelvis: FINDINGS: Liver: Mild steatosis. Liver nodularity concerning for cirrhosis. Gallbladder and bile ducts: Layering biliary sludge or cholelithiasis. Pancreas: Normal. No ductal dilation. Spleen: Normal. No splenomegaly. Adrenal glands: Normal. No mass. Kidneys and ureters: Normal. No hydronephrosis. Stomach and bowel: Unremarkable. No obstruction. No mucosal thickening. Appendix: No evidence of appendicitis. Intraperitoneal space: Unremarkable. No free air. No significant fluid collection. Vasculature: Atherosclerotic disease of the abdominal aorta. Lymph nodes: Partially imaged inflammatory process in the left groin containing small amount of gas measures approximately 2 x 5 cm. Multiple adjacent asymmetrically enlarged left inguinal lymph nodes. Urinary bladder: Unremarkable as visualized. Reproductive: Unremarkable as visualized. Bones/joints: Anterolisthesis of L5-S1, nature. Severe multilevel facet. Soft tissues: Diastasis periumbilical abdominal wall. IMPRESSION: Partially imaged inflammatory process in the left groin containing small amount of gas measures approximately 2 x 5 cm. Multiple adjacent asymmetrically enlarged left inguinal lymph nodes. ] MICROBIOLOGY: Please see below. ASSESSMENT: [his is a 66 y/o male with a pmh of CAD, hld, htn, kathy and previous inguinal abscess who reports with cc of drainage from his groin that began on 02/27. Patient clinically has evidence of inguinal abscess as well as on imaging]. . PLAN: 1. [Groin abscess/cellulitis - Abscess is open and draining, likely burst when patient sat yesterday - CT showing some gas in abscess pocket - gas forming organism vs. air in pocket - Will begin broad spectrum abx - vanco, zosyn, flagyl - No sirs criteria - Day team should consider urology consult for possible debridement - will make patient npo for now - Admit to med surg for iv abx and possible surgical intervention 2. HTN - continue carvedilol 3. HLD - continue lipitor 4. CAD - continue asa DVT prophylaxis - lovenox ordered]. Vital Signs Vital Signs Date Time Temp Pulse Resp B/P (MAP) Pulse Ox O2 Delivery O2 Flow Rate FiO2 02/28/21 01:33 81 22 143/75 (97) 94 Room Air 02/27/21 18:22 99.4 Laboratory Data Labs 24H Laboratory Tests 2 02/28/21 00:33: Immature Granulocyte % (Auto) 0.5, Neutrophils (%) (Auto) 73.0H, Lymphocytes (%) (Auto) 14.2L, Monocytes (%) (Auto) 10.2H, Eosinophils (%) (Auto) 1.6, Basophils (%) (Auto) 0.5, Neutrophils # (Auto) 7.8, Lymphocytes # (Auto) 1.5, Monocytes # (Auto) 1.1H, Eosinophils # (Auto) 0.2, Basophils # (Auto) 0.1, Nucleated Red Blood Cells % (auto) 0.0, Erythrocyte Sedimentation Rate 66H, Anion Gap 6L, Glomerular Filtration Rate > 60.0, Lactic Acid Level 1.8, Calcium Level 8.3L, Total Bilirubin 0.9, Direct Bilirubin 0.3H, Aspartate Amino Transf (AST/SGOT) 19, Alanine Aminotransferase (ALT/SGPT) 16, Alkaline Phosphatase 71, C-Reactive Protein, Quantitative 6.09H, Total Protein 7.8, Albumin 2.9L, Albumin/Globulin Ratio 0.6 02/28/21 01:17: Coronavirus (COVID-19)(PCR) NEGATIVE, Influenza Type A (RT-PCR) NEGATIVE, Influenza Type B (RT-PCR) NEGATIVE, Respiratory Syncytial Virus (PCR) NEGATIVE CBC/BMP Laboratory Tests 02/28/21 00:33 Microbiology Microbiology 02/28/21 Blood Culture, Received Pending 02/28/21 Blood Culture, Received Pending 02/27/21 Gram Stain, Received Pending 02/27/21 Wound Culture, Received Pending Home Medications Scheduled Aspirin (Aspirin) 81 Mg Tab.chew, 81 MG PO DAILY Atorvastatin Calcium (Atorvastatin Calcium) 40 Mg Tablet, 40 MG PO QHS Carvedilol (Carvedilol) 12.5 Mg Tablet, 12.5 MG PO BID Ergocalciferol (Vitamin D2) (Vitamin D2) 50,000 Units Cap, 50,000 UNITS PO QWEEK Allergies Coded Allergies: No Known Allergies (Unverified , 10/31/20) A-FIB/CHADSVASC A-FIB History Current/History of A-Fib/PAF?: No PERFECTO SANCHEZ Feb 28, 2021 03:18
[2021-02-28] MEDS ORDERED: VANCOMYCIN HCL 1,000 MG, VIAL MATE ADAPTER 1 EACH in NS 250 ML IV SCH (03:40)
[2021-02-28] MEDS ORDERED: VANCOMYCIN HCL 1,000 MG, VIAL MATE ADAPTER 1 EACH in NS 250 ML IV ONE ×2 (04:00→05:00)
[2021-02-28 07:39] LABS: PARTIAL THROMBOPLASTIN TIME 29.4 SECONDS (24.2-38.5); PROTHROMBIN TIME 13.4 SECONDS (12.5-14.3)
--- NOTE | 2021-02-28 07:44 | SMCUROLCON ---
Urology Consultation General Date of Consultation 02/28/21 Reason For Consultation This patient is seen for left groin abscess. History of Present Illness 66-year-old obese white male. Denies diabetes. Lawrence some pain in his left groin. Sometime thereafter he noticed a foul smell and then drainage. S/s s tarted less than 24 hours ago. No fevers. No urinary symptoms. No dysuria or gross hematuria. History of Dulce's gangrene. Past Medical History Medical History Obesity Hypertension History of Dulce's gangrene Obstructive sleep apnea Hyperlipidemia Denies diabetes Surgical Hstory Right knee surgery and left foot spur surgery Dulce's gangrene surgery Family History Family History Not pertinent to patient's chief complaint Social History * Smoker: non-smoker Medications Current Medications Current Medications Medications (Trade) Dose Ordered Sig/Hailey Route PRN Reason Start Time Stop Time Status Last Admin Dose Admin Acetaminophen (Tylenol Tab) 650 mg Q4H PRN PO MILD PAIN or TEMP > 101 02/28/21 03:15 Al Hydrox/Mg Hydrox/Simethicone (Mylanta) 30 ml DAILY PRN PO DYSPEPSIA 02/28/21 03:15 Aspirin (Aspirin Chewable) 81 mg DAILY PO 02/28/21 09:00 Atorvastatin Calcium (Lipitor) 40 mg QHS PO 02/28/21 21:00 Carvedilol (COReg) 12.5 mg BID PO 02/28/21 09:00 Enoxaparin Sodium (Lovenox) 40 mg DAILY SC 02/28/21 09:00 Home Med (Med Rec Complete!) ASDIRECTED XX 02/28/21 02:05 02/28/21 02:06 DC Magnesium Hydroxide (Milk Of Magnesia) 30 ml DAILY PRN PO CONSTIPATION 02/28/21 03:15 Metronidazole (Flagyl) 500 mg TID PO 02/28/21 09:00 Piperacillin Sod/ Tazobactam Sod 3.375 gm/Dextrose 50 ml @ 50 mls/hr Q6H IV 02/28/21 08:00 Vancomycin HCl 500 mg/Dextrose 110 ml @ 110 mls/hr Q8H IV 02/28/21 13:00 Vancomycin HCl 750 mg/IV Miscellaneous Supplies 1 each/ Sodium Chloride 275 ml @ 275 mls/hr Q8H IV 02/28/21 12:00 Vancomycin HCl 1000 mg/IV Miscellaneous Supplies 1 each/ Sodium Chloride 270 ml @ 270 mls/hr Q12H IV 02/28/21 03:40 02/28/21 06:22 DC Allergies Allergies: Coded Allergies: No Known Allergies (Unverified , 10/31/20) Review of Systems Constitutional: Denies: Fever Eyes: Denies: Vision change ENT: Denies: Head Aches Pulmonary: Denies: Dyspnea Cardiovascular: Denies Chest Pain Gastrointestinal: Denies: Nausea Genitourinary: Denies: Dysuria Hematologic: Denies: Bruising Endocrine: Denies: Polydipsia Musculoskeletal: Denies: Neck Pain Neurological: Denies: Weakness Psych: Reports: Mood Normal Physical Examination General Exam: Alert, No Acute Distress EYE EXAM: Conjunctiva & lids normal, EOMI; No: Sclera icteric ENT EXAM: Atraumatic, Mucous membr. moist/pink, Nares Patent, Pinna Normal Neck Exam: Supple Chest Exam: Normal air movement Heart Exam: Rate Normal, Regular Rhythm Abdomen Exam: Soft; No: Tenderness Male Exam: Normal Genital Exam Male Exam penis unremarkable testes epi's unremarkable opening low left scrotum/left groin about 1cm draining pus no fluctuance no cellulitis Extremity Exam: No: Edema Skin Exam: Nl turgor and temperature Neuro Exam: Normal Gait, Normal Speech Psych Exam: Mental status NL, Mood NL, Oriented x 3 Vital Signs/I&O Vital Signs Date Time Temp Pulse Resp B/P (MAP) Pulse Ox O2 Delivery O2 Flow Rate FiO2 02/28/21 04:18 98.0 78 18 127/62 (83) 98 02/28/21 01:33 Room Air I&O- Last 24 Hours up to 6 AM 02/28/21 06:00 Intake Total 820 ml Balance 820 ml Laboratory Data 24H Labs Laboratory Tests 2 02/28/21 00:33: Immature Granulocyte % (Auto) 0.5, Neutrophils (%) (Auto) 73.0H, Lymphocytes (%) (Auto) 14.2L, Monocytes (%) (Auto) 10.2H, Eosinophils (%) (Auto) 1.6, Basophils (%) (Auto) 0.5, Neutrophils # (Auto) 7.8, Lymphocytes # (Auto) 1.5, Monocytes # (Auto) 1.1H, Eosinophils # (Auto) 0.2, Basophils # (Auto) 0.1, Nucleated Red Blood Cells % (auto) 0.0, Erythrocyte Sedimentation Rate 66H, Anion Gap 6L, Glomerular Filtration Rate > 60.0, Lactic Acid Level 1.8, Calcium Level 8.3L, Total Bilirubin 0.9, Direct Bilirubin 0.3H, Aspartate Amino Transf (AST/SGOT) 19, Alanine Aminotransferase (ALT/SGPT) 16, Alkaline Phosphatase 71, C-Reactive Protein, Quantitative 6.09H, Total Protein 7.8, Albumin 2.9L, Albumin/Globulin Ratio 0.6 02/28/21 01:17: Coronavirus (COVID-19)(PCR) NEGATIVE, Influenza Type A (RT-PCR) NEGATIVE, Influenza Type B (RT-PCR) NEGATIVE, Respiratory Syncytial Virus (PCR) NEGATIVE 02/28/21 06:57: CBC/BMP Laboratory Tests 02/28/21 00:33 Microbiology Microbiology 02/28/21 Blood Culture, Received Pending 02/28/21 Blood Culture, Received Pending 02/27/21 Gram Stain, Received Pending 02/27/21 Wound Culture, Received Pending Assessment Pt seen and examined. Left groin abscess. On exam, it seems abscess has spontaneously drained. There is an opening about a cm in size. No necrotic tissue noted. No fluctuance appreciated. Foul smell to drainage. Surrounding tissue slightly indurated. I reviewed the ct. Nothing that needs to be drained exists. Wbc 10.6. Creatinine normal. Pt is afebrile and his bp is stable. Plan No need for surgery. There is no gangrene and the abscess has spontaneously drained. IV antibiotic appropriate. JACLYN LEWIS MD Feb 28, 2021 07:44
[2021-02-28] MEDS: PIPERACILLIN/TAZOBACTAM SOD 3.375 GM in D5W MINI-BAG PLUS 50 ML IV SCH ×3 (09:07→21:55)
[2021-02-28] MEDS: metroNIDAZOLE (FLAGYL) 500MG TABLET PO SCH ×3 (09:09→20:20)
[2021-02-28] MEDS: ASPIRIN 81 MG CHEW TABLET PO SCH (09:09)
[2021-02-28] MEDS: CARVedilol 12.5 MG TAB PO SCH ×2 (09:09→20:21)
[2021-02-28] MEDS: ENOXAPARIN 40MG/0.4ML SYRINGE (J1650 PER 10MG) SC SCH (09:10)
--- NOTE | 2021-02-28 11:15 | IPN ---
PROGRESS NOTE DATE: 02/28/2021 SUBJECTIVE: Polo was admitted with an abscess in his left groin. He has already been by Urology. It is not felt that he requires surgical intervention. The abscess has spontaneously drained. He has a history significant for recent hospitalization 10/31/20 for wide complex tachycardia, had a cardiac catheterization, transesophageal echocardiogram, followed by Dr. Bradford of [facility], coronary artery disease, history of PR on 12/16, morbid obesity, hyperlipidemia, SERA, hypertensive heart disease, past history of Dulce's gangrene, atrial flutter with an ablation in 10/27. OBJECTIVE: VITAL SIGNS: Blood pressure 122/62, afebrile. Vital signs are stable. LUNGS: Clear. HEART: Regular rate and rhythm. ABDOMEN: Soft, nontender, obese, no masses. He has mildly purulent mostly serous fluid draining from within a fold of his left inguinal crease. Wound culture is pending. IMPRESSION: 1. Groin abscess, spontaneously drained. He has a history of Dulce's gangrene. I am going to keep him a few days on IV antibiotics, he has already been seen by Surgery. No intervention needed. Currently on Zosyn and Flagyl which were will continue. 2. Hypertensive heart disease, continue his Carvedilol and aspirin. 3. Coronary artery disease, continue his current medications. 4. Hyperlipidemia, continue atorvastatin 40 mg daily. 5. Morbid obesity, this complicates his care.
[2021-02-28] MEDS: VANCOMYCIN HCL 750 MG, VIAL MATE ADAPTER 1 EACH in NS 250 ML IV SCH ×2 (11:56→20:21)
[2021-02-28] MEDS: VANCOMYCIN HCL 500 MG in D5W MINI-BAG PLUS 100 ML IV SCH ×2 (13:26→22:53)
[2021-02-28 15:00] VITALS: BP 149/73
[2021-02-28] MEDS: ATORVASTATIN 20 MG TAB PO SCH (20:21)
[2021-02-28 22:15] VITALS: BP 143/74
[2021-03-01] MEDS: PIPERACILLIN/TAZOBACTAM SOD 3.375 GM in D5W MINI-BAG PLUS 50 ML IV SCH ×4 (02:29→20:19)
[2021-03-01] MEDS: VANCOMYCIN HCL 750 MG, VIAL MATE ADAPTER 1 EACH in NS 250 ML IV SCH (04:49)
[2021-03-01 06:00] VITALS: BP 128/64
[2021-03-01] MEDS: VANCOMYCIN HCL 500 MG in D5W MINI-BAG PLUS 100 ML IV SCH (06:08)
[2021-03-01 06:31] LABS: HEMOGLOBIN 13.1 g/dl (13.5-17.5); MEAN CORPUSCULAR HEMOGLOBIN 30.2 pg (27.0-33.0); MEAN CORPUSCULAR HGB CONC 32.8 g/dl (32.0-36.5); MEAN CORPUSCULAR VOLUME 92.2 fl (80.0-96.0); PLATELET COUNT, AUTOMATED 187 10^3/uL (150-450); RED BLOOD COUNT 4.34 10^6/uL (4.30-6.10); WHITE BLOOD COUNT 7.4 10^3/uL (4.0-10.0)
[2021-03-01 06:50] LABS: BLOOD UREA NITROGEN 20 MG/DL (7-18); CALCIUM LEVEL 8.2 MG/DL (8.8-10.2); CARBON DIOXIDE LEVEL 26 MEQ/L (21-32); CHLORIDE LEVEL 103 MEQ/L (98-107); CREATININE FOR GFR 0.95 MG/DL (0.70-1.30); GLOMERULAR FILTRATION RATE > 60.0 (>49); GLUCOSE, FASTING 139 MG/DL (70-100); POTASSIUM SERUM 3.5 MEQ/L (3.5-5.1); SODIUM LEVEL 136 MEQ/L (136-145)
[2021-03-01] MEDS: ENOXAPARIN 40MG/0.4ML SYRINGE (J1650 PER 10MG) SC SCH (08:23)
[2021-03-01] MEDS: CARVedilol 12.5 MG TAB PO SCH ×2 (08:23→20:19)
[2021-03-01] MEDS: metroNIDAZOLE (FLAGYL) 500MG TABLET PO SCH ×3 (08:23→20:19)
[2021-03-01] MEDS: ASPIRIN 81 MG CHEW TABLET PO SCH (08:23)
--- NOTE | 2021-03-01 09:43 | IPN ---
PROGRESS NOTE DATE: 03/01/2021 SUBJECTIVE: Polo is seen on [address] having drainage from his groin wound. Culture grew out some group F strep. He is on Zosyn and metronidazole. No fever or chills. OBJECTIVE: VITAL SIGNS: Afebrile. Vital signs stable. LUNGS: Clear. HEART: Regular rate and rhythm. ABDOMEN: Soft and nontender. EXTREMITIES: Trace peripheral edema. LABORATORY DATA: White count is normal at 7.4. Electrolytes unremarkable. ASSESSMENT AND PLAN: 1. Groin abscess spontaneously drained. At this point, I think we can get rid of the vancomycin and continue the Zosyn and Flagyl. Probably discharge tomorrow on Augmentin and Flagyl. 2. Hyperlipidemia, stable on current regimen. 3. Hypertension. Blood pressure is well-controlled on current regimen.
[2021-03-01 14:00] VITALS: BP 126/62
[2021-03-01] MEDS: ATORVASTATIN 20 MG TAB PO SCH (20:19)
[2021-03-01 20:32] VITALS: BP 166/76
[2021-03-02] MEDS: PIPERACILLIN/TAZOBACTAM SOD 3.375 GM in D5W MINI-BAG PLUS 50 ML IV SCH ×2 (02:26→07:53)
[2021-03-02 06:00] VITALS: BP 143/78
[2021-03-02 07:54] VITALS: BP 143/78
[2021-03-02] MEDS: ENOXAPARIN 40MG/0.4ML SYRINGE (J1650 PER 10MG) SC SCH (07:54)
[2021-03-02] MEDS: metroNIDAZOLE (FLAGYL) 500MG TABLET PO SCH (07:54)
[2021-03-02] MEDS: CARVedilol 12.5 MG TAB PO SCH (07:54)
[2021-03-02] MEDS: ASPIRIN 81 MG CHEW TABLET PO SCH (07:54)
[2021-03-02] MEDS ORDERED: AUGM875T28 PO (08:28)
[2021-03-02] MEDS ORDERED: FLAG500T PO (08:28)
--- NOTE | 2021-03-02 09:43 | DSES ---
DISCHARGE SUMMARY DATE OF ADMISSION: 02/27/2021 DATE OF DISCHARGE: 03/02/2021 PRINCIPAL DIAGNOSES: Abscess left groin. SECONDARY DIAGNOSES: 1. Morbid obesity complicating care. 2. Hypertensive heart disease. 3. Coronary artery disease. 4. Hyperlipidemia. HISTORY OF PRESENT ILLNESS: Polo Bolton had an abscess to the left groin in the deep skin fold. He has a history of Dulce gangrene and it was felt he would be best managed in an inpatient setting. HOSPITAL COURSE: Abscess spontaneously drained. He was seen by urologic surgery. They did not feel there was any need to perform any further procedure. The abscess had already spontaneously drained. He continued to drain serous fluid. DISCHARGE PHYSICAL EXAMINATION: On the day of discharge, the groin abscess has evacuated itself. There is some minimal induration around the exit area. No cellulitis. LABORATORY DATA: Most recent white count 7.4 down from 10.6 on admission, hemoglobin 13.1, platelets 187,000. Sodium 136, potassium 3.6, creatinine 0.9. DISCHARGE DISPOSITION: He is discharged home in improved and stable condition. He will follow-up with primary care provider in a week. DISCHARGE ACTIVITY: As tolerated. DISCHARGE ACTIVITY: No added salt diet. DISCHARGE MEDICATIONS: (NEW MEDICATIONS) 1. Augmentin 875 mg b.i.d. for 5 days. 2. Flagyl 500 mg t.i.d. for 5 days. HE WILL OTHERWISE CONTINUE: 1. Aspirin 81 mg daily. 2. Atorvastatin 40 mg daily. 3. Carvedilol 12.5 mg b.i.d. 4. Vitamin D supplement. At the time of this dictation, there are no pending labs.
== END 2021-03-02 11:45 | disposition home or self-care (01) ==
LOC: M ED 18:22 → M ED INP 18:23 → ENRESERV 02-28 14:12 → M MS5PR 02-28 15:10
PROVIDERS: ADMIT Family Medicine; ATTEND Family Medicine
DX: L02.214 Cutaneous abscess of groin (principal); E66.01 Morbid (severe) obesity due to excess calories; I11.9 Hypertensive heart disease without heart failure; I25.10 Atherosclerotic heart disease of native coronary artery without angina pectoris; E78.49 Other hyperlipidemia; Z79.82 Long term (current) use of aspirin; G47.33 Obstructive sleep apnea (adult) (pediatric); Z79.899 Other long term (current) drug therapy
CPT/HCPCS: 36415; 74177; 76857; 80047; 80048; 80076; 80202; 83605; 85025; 85027; 85610; 85652; 85730; 86140; 87040; 87070; 87076; 87077; 87186; 87205; 87631; 87641; 94760; 96361; 96365; 96366; 96367; 96372; 99284; G0378; J1650; J2543; J3370; Q9967

== ENCOUNTER → 2021-03-14 | Outpatient (CLI) | payer MEDICARE ==
[~2021-03-14] MED LIST changes: +ASPI1CHW3 PO; +ATOR40TA75 PO; +AUGM875T28 PO; +CARV12.5 PO; +ERGO500029 PO; +FLAG500T PO
[2021-03-14 14:05] LABS: ALT/SGPT 21 U/L (12-78); BILIRUBIN,TOTAL 0.5 MG/DL (0.2-1.0); BLOOD UREA NITROGEN 13 MG/DL (7-18); CALCIUM LEVEL 9.2 MG/DL (8.8-10.2); CARBON DIOXIDE LEVEL 25 MEQ/L (21-32); CHLORIDE LEVEL 107 MEQ/L (98-107); CREATININE FOR GFR 0.75 MG/DL (0.70-1.30); GLOMERULAR FILTRATION RATE > 60.0 (>49); GLUCOSE, FASTING 96 MG/DL (70-100); POTASSIUM SERUM 4.3 MEQ/L (3.5-5.1); SODIUM LEVEL 141 MEQ/L (136-145); TOTAL PROTEIN 7.6 GM/DL (6.4-8.2)
[2021-03-14 14:11] LABS: TOTAL 25(OH) VITAMIN D 38.7 NG/ML (30.0-100.0)
[2021-03-14 14:16] LABS: MALB URINE SIEMENS 10.6 MG/L; MAU/CREAT RATIO 6.5 MCG/MG (0.0-30.0)
[2021-03-14 14:33] LABS: HEMOGLOBIN A1c 5.9 %
== END ==
LOC: M PLALAB 10:52
PROVIDERS: ATTEND Nurse Practitioner Family
DX: E55.9 Vitamin D deficiency, unspecified (principal); I10 Essential (primary) hypertension; R73.01 Impaired fasting glucose
CPT/HCPCS: 36415; 80053; 82043; 82306; 83036; G0463

== ENCOUNTER → 2021-11-11 | Outpatient (CLI) | payer MEDICARE ==
[2021-11-11 10:50] LABS: BASO % 0.4 % (0.0-1.0); EOS # 0.3 10^3/uL (0.0-0.5); EOS % 3.9 % (0.0-3.0); HEMATOCRIT 43.4 % (42.0-52.0); HEMOGLOBIN 13.9 g/dl (13.5-17.5); LYMPH # 1.5 10^3/uL (1.5-5.0); MEAN CORPUSCULAR HEMOGLOBIN 30.2 pg (27.0-33.0); MEAN CORPUSCULAR VOLUME 94.3 fl (80.0-96.0); MONO # 0.8 10^3/uL (0.0-0.8); MONO % 10.9 % (2.0-8.0); NEUTROPHILS # 4.4 10^3/uL (1.5-8.5); NEUTROPHILS % 63.5 % (36.0-66.0); PLATELET COUNT, AUTOMATED 176 10^3/uL (150-450)
[2021-11-11 11:31] LABS: ALBUMIN 3.1 GM/DL (3.2-5.2); ALT/SGPT 19 U/L (12-78); BILIRUBIN,TOTAL 0.8 MG/DL (0.2-1.0); BLOOD UREA NITROGEN 16 MG/DL (7-18); CARBON DIOXIDE LEVEL 30 MEQ/L (21-32); CHLORIDE LEVEL 107 MEQ/L (98-107); CHOLESTEROL LEVEL 118 MG/DL (<200); CHOLESTEROL RISK RATIO 2.185 (<5); CREATININE FOR GFR 0.91 MG/DL (0.70-1.30); GLOMERULAR FILTRATION RATE > 60.0 (>49); GLUCOSE, FASTING 103 MG/DL (70-100); HDL CHOLESTEROL 54 MG/DL (>40); LDL CHOLESTEROL 51 MG/DL (<100); NON-HDL-C 64 MG/DL; POTASSIUM SERUM 4.2 MEQ/L (3.5-5.1); SODIUM LEVEL 141 MEQ/L (136-145); TOTAL PROTEIN 7.3 GM/DL (6.4-8.2); TRIGLYCERIDES LEVEL 64 MG/DL (<150)
[2021-11-11 12:07] LABS: MALB URINE SIEMENS 10.2 MG/L
[2021-11-11 12:15] LABS: HEMOGLOBIN A1c 5.6 %
[2021-11-11 12:33] LABS: TOTAL 25(OH) VITAMIN D 25.7 NG/ML (30.0-100.0)
== END ==
LOC: M PLALAB 07:41
PROVIDERS: ATTEND Nurse Practitioner Family
DX: Z12.5 Encounter for screening for malignant neoplasm of prostate (principal); I10 Essential (primary) hypertension; E78.00 Pure hypercholesterolemia, unspecified; R73.03 Prediabetes; E55.9 Vitamin D deficiency, unspecified
CPT/HCPCS: 36415; 80053; 80061; 82043; 82306; 83036; 85025; G0103

== ENCOUNTER → 2021-12-26 | Outpatient (CLI) | payer MEDICARE ==
[2021-12-26 10:56] LABS: BASO # 0.1 10^3/uL (0.0-0.2); BASO % 0.8 % (0.0-1.0); EOS # 0.3 10^3/uL (0.0-0.5); EOS % 5.3 % (0.0-3.0); HEMATOCRIT 42.8 % (42.0-52.0); LYMPH # 1.8 10^3/uL (1.5-5.0); LYMPH % 28.4 % (24.0-44.0); MEAN CORPUSCULAR HEMOGLOBIN 33.1 pg (27.0-33.0); MEAN CORPUSCULAR VOLUME 94.5 fl (80.0-96.0); MONO # 0.8 10^3/uL (0.0-0.8); MONO % 12.2 % (2.0-8.0); NEUTROPHILS # 3.3 10^3/uL (1.5-8.5); NEUTROPHILS % 52.8 % (36.0-66.0); PLATELET COUNT, AUTOMATED 206 10^3/uL (150-450); RED BLOOD COUNT 4.53 10^6/uL (4.30-6.10); WHITE BLOOD COUNT 6.2 10^3/uL (4.0-10.0)
[2021-12-26 10:58] LABS: ALBUMIN 2.9 GM/DL (3.2-5.2); ALT/SGPT 23 U/L (12-78); BILIRUBIN,TOTAL 0.7 MG/DL (0.2-1.0); BLOOD UREA NITROGEN 14 MG/DL (7-18); CALCIUM LEVEL 9.3 MG/DL (8.8-10.2); CARBON DIOXIDE LEVEL 29 MEQ/L (21-32); CHLORIDE LEVEL 106 MEQ/L (98-107); CREATININE FOR GFR 0.87 MG/DL (0.70-1.30); GLOMERULAR FILTRATION RATE > 60.0 (>49); GLUCOSE, FASTING 103 MG/DL (70-100); NT-PRO BNP 131 PG/ML (<125); POTASSIUM SERUM 4.4 MEQ/L (3.5-5.1); SODIUM LEVEL 141 MEQ/L (136-145); TOTAL PROTEIN 7.4 GM/DL (6.4-8.2)
== END ==
LOC: M PLALAB 08:41
PROVIDERS: ATTEND Nurse Practitioner Family
DX: L03.116 Cellulitis of left lower limb (principal); R60.0 Localized edema

== ENCOUNTER 2022-01-03 12:34 | Emergency (ER) | payer MEDICARE, OTHER ==
[~2022-01-03] VITALS: Ht 182.9 cm; Wt 209.6 kg
[2022-01-03 12:35] VITALS: BP 135/68
[2022-01-03 14:22] LABS: BASO % 0.9 % (0.0-1.0); EOS # 0.3 10^3/uL (0.0-0.5); EOS % 5.9 % (0.0-3.0); HEMATOCRIT 42.8 % (42.0-52.0); HEMOGLOBIN 14.1 g/dl (13.5-17.5); LYMPH # 1.4 10^3/uL (1.5-5.0); MEAN CORPUSCULAR HEMOGLOBIN 30.9 pg (27.0-33.0); MEAN CORPUSCULAR HGB CONC 32.9 g/dl (32.0-36.5); MEAN CORPUSCULAR VOLUME 93.7 fl (80.0-96.0); MONO # 0.5 10^3/uL (0.0-0.8); MONO % 11.4 % (2.0-8.0); NEUTROPHILS # 2.3 10^3/uL (1.5-8.5); NEUTROPHILS % 50.6 % (36.0-66.0); PLATELET COUNT, AUTOMATED 180 10^3/uL (150-450); RED BLOOD COUNT 4.57 10^6/uL (4.30-6.10); WHITE BLOOD COUNT 4.6 10^3/uL (4.0-10.0)
[2022-01-03 14:55] LABS: BLOOD UREA NITROGEN 19 MG/DL (7-18); CALCIUM LEVEL 8.8 MG/DL (8.8-10.2); CARBON DIOXIDE LEVEL 30 MEQ/L (21-32); CHLORIDE LEVEL 108 MEQ/L (98-107); GLOMERULAR FILTRATION RATE > 60.0 (>49); GLUCOSE, FASTING 102 MG/DL (70-100); NT-PRO BNP 172 PG/ML (<125); SODIUM LEVEL 141 MEQ/L (136-145)
== END 2022-01-03 16:02 | disposition home or self-care (01) ==
LOC: M ED 12:34
DX: R22.43 Localized swelling, mass and lump, lower limb, bilateral (principal); L97.921 Non-pressure chronic ulcer of unspecified part of left lower leg limited to breakdown of skin; I25.2 Old myocardial infarction; I10 Essential (primary) hypertension; E78.5 Hyperlipidemia, unspecified; Z79.82 Long term (current) use of aspirin; Z79.899 Other long term (current) drug therapy

== ENCOUNTER → 2022-04-15 | Outpatient (CLI) | payer MEDICARE ==
[~2022-04-15] MED LIST changes: +FURO40TA2 PO
== END ==
LOC: M LABSMTC 09:40
PROVIDERS: ATTEND Anesthesiology
DX: Z11.52 Encounter for screening for COVID-19 (principal)

== ENCOUNTER 2022-04-20 11:10 | Day surgery (SDC) | payer MEDICARE ==
[~2022-04-20] VITALS: Ht 182.9 cm; Wt 207.9 kg
[~2022-04-20 11:10] MED LIST changes: +NS 1,000 ML IV ONE
[2022-04-20] MEDS ORDERED: propofoL 200 MG/20 ML VIAL As Ordered ONE ×2 (12:31→12:37)
[2022-04-20] MEDS ORDERED: LIDOCAINE 2% 100MG/5ML SDV (FOR ANES.) As Ordered ONE (12:32)
[2022-04-20 13:49] VITALS: BP 127/60
== END 2022-04-20 13:51 | disposition home or self-care (01) ==
LOC: M OPP 11:10
PROVIDERS: ATTEND Internal Medicine Gastroenterology
DX: Z12.11 Encounter for screening for malignant neoplasm of colon (principal); Z86.010 Personal history of colon polyps; D12.2 Benign neoplasm of ascending colon; K64.0 First degree hemorrhoids; I10 Essential (primary) hypertension; G47.33 Obstructive sleep apnea (adult) (pediatric); Z86.74 Personal history of sudden cardiac arrest; Z99.89 Dependence on other enabling machines and devices; Z79.02 Long term (current) use of antithrombotics/antiplatelets; Z79.1 Long term (current) use of non-steroidal anti-inflammatories (NSAID); Z79.82 Long term (current) use of aspirin; Z79.899 Other long term (current) drug therapy

== ENCOUNTER → 2022-04-27 | Outpatient (CLI) | payer MEDICARE ==
[~2022-04-27] MED LIST changes: -NS 1,000 ML IV ONE
[2022-04-27 17:47] LABS: BASO % 0.5 % (0.0-1.0); EOS # 0.3 10^3/uL (0.0-0.5); EOS % 4.6 % (0.0-3.0); HEMATOCRIT 41.5 % (42.0-52.0); LYMPH # 1.8 10^3/uL (1.5-5.0); LYMPH % 30.1 % (24.0-44.0); MEAN CORPUSCULAR HEMOGLOBIN 31.7 pg (27.0-33.0); MEAN CORPUSCULAR HGB CONC 33.7 g/dl (32.0-36.5); MEAN CORPUSCULAR VOLUME 93.9 fl (80.0-96.0); MONO # 0.7 10^3/uL (0.0-0.8); MONO % 11.2 % (2.0-8.0); NEUTROPHILS # 3.1 10^3/uL (1.5-8.5); NEUTROPHILS % 53.3 % (36.0-66.0); PLATELET COUNT, AUTOMATED 186 10^3/uL (150-450); RED BLOOD COUNT 4.42 10^6/uL (4.30-6.10); WHITE BLOOD COUNT 5.9 10^3/uL (4.0-10.0)
[2022-04-27 18:06] LABS: HEMOGLOBIN A1c 6.1 %
[2022-04-27 18:43] LABS: ALT/SGPT 23 U/L (12-78); BILIRUBIN,TOTAL 0.8 MG/DL (0.2-1.0); BLOOD UREA NITROGEN 18 MG/DL (7-18); CARBON DIOXIDE LEVEL 28 MEQ/L (21-32); CHLORIDE LEVEL 102 MEQ/L (98-107); CHOLESTEROL LEVEL 127 MG/DL (<200); CHOLESTEROL RISK RATIO 2.396 (<5); CREATININE FOR GFR 0.91 MG/DL (0.70-1.30); GLOMERULAR FILTRATION RATE > 60.0 (>49); GLUCOSE, FASTING 93 MG/DL (70-100); HDL CHOLESTEROL 53 MG/DL (>40); LDL CHOLESTEROL 54 MG/DL (<100); NON-HDL-C 74 MG/DL; POTASSIUM SERUM 3.8 MEQ/L (3.5-5.1); SODIUM LEVEL 136 MEQ/L (136-145); TOTAL PROTEIN 7.6 GM/DL (6.4-8.2); TRIGLYCERIDES LEVEL 100 MG/DL (<150)
[2022-04-27 19:03] LABS: TOTAL 25(OH) VITAMIN D 35.8 NG/ML (30.0-100.0)
== END ==
LOC: M PLALAB 15:14
PROVIDERS: ATTEND Nurse Practitioner Family
DX: R73.03 Prediabetes (principal); E78.00 Pure hypercholesterolemia, unspecified; E55.9 Vitamin D deficiency, unspecified; L03.116 Cellulitis of left lower limb

== ENCOUNTER → 2022-09-08 | Outpatient (CLI) | payer MEDICARE ==
[2022-09-08 11:10] LABS: HEMOGLOBIN A1c 5.4 % (4.0-6.0)
== END ==
LOC: M PLALAB 09:13
PROVIDERS: ATTEND Surgery
DX: Z86.39 Personal history of other endocrine, nutritional and metabolic disease (principal)

== ENCOUNTER → 2022-12-28 | Outpatient (CLI) | payer MEDICARE ==
[~2022-12-28] MED LIST changes: +ASPI-655 PO; -ASPI1CHW3 PO
[2022-12-28 11:57] LABS: BASO % 0.5 % (0.0-1.0); EOS # 0.3 10^3/uL (0.0-0.5); EOS % 4.9 % (0.0-3.0); HEMATOCRIT 43.7 % (42.0-52.0); HEMOGLOBIN 14.2 g/dl (13.5-17.5); LYMPH # 1.5 10^3/uL (1.5-5.0); LYMPH % 25.8 % (24.0-44.0); MEAN CORPUSCULAR HEMOGLOBIN 31.1 pg (27.0-33.0); MEAN CORPUSCULAR HGB CONC 32.5 g/dl (32.0-36.5); MEAN CORPUSCULAR VOLUME 95.6 fl (80.0-96.0); MONO # 0.5 10^3/uL (0.0-0.8); MONO % 9.5 % (2.0-8.0); NEUTROPHILS # 3.3 10^3/uL (1.5-8.5); NEUTROPHILS % 58.6 % (36.0-66.0); PLATELET COUNT, AUTOMATED 205 10^3/uL (150-450); RED BLOOD COUNT 4.57 10^6/uL (4.30-6.10); WHITE BLOOD COUNT 5.7 10^3/uL (4.0-10.0)
[2022-12-28 11:59] LABS: ALKALINE PHOSPHATASE 70 U/L (46-116); ALT/SGPT 18 U/L (7.0-40); AST/SGOT 30 U/L (<34); BILIRUBIN,TOTAL 0.5 MG/DL (0.3-1.2); BLOOD UREA NITROGEN 22 MG/DL (9-23); CALCIUM LEVEL 8.5 MG/DL (8.3-10.6); CARBON DIOXIDE LEVEL 25 MMOL/L (20-31); CHLORIDE LEVEL 109 MMOL/L (98-107); CHOLESTEROL LEVEL 157 MG/DL (<200); CHOLESTEROL RISK RATIO 3.15 (<5); CREATININE FOR GFR 0.85 MG/DL (0.70-1.30); GLOMERULAR FILTRATION RATE > 60.0 (>49); GLUCOSE, FASTING 88 MG/DL (74-106); HDL CHOLESTEROL 49.8 MG/DL (>40); LDL CHOLESTEROL 92.6 MG/DL (<100); NON-HDL-C 107.2 MG/DL; SODIUM LEVEL 140 MMOL/L (136-145); TOTAL PROTEIN 7.2 G/DL (5.7-8.2); TRIGLYCERIDES LEVEL 73 MG/DL (<150)
== END ==
LOC: M PLALAB 08:28
PROVIDERS: ATTEND Nurse Practitioner Family
DX: E78.00 Pure hypercholesterolemia, unspecified (principal); I10 Essential (primary) hypertension; R73.03 Prediabetes; Z12.5 Encounter for screening for malignant neoplasm of prostate

== ENCOUNTER → 2023-04-29 | Outpatient (CLI) | payer MEDICARE, MEDICAID ==
[2023-04-29 15:05] LABS: BASO % 0.7 % (0.0-1.0); EOS # 0.4 10^3/uL (0.0-0.5); EOS % 6.5 % (0.0-3.0); HEMATOCRIT 42.9 % (42.0-52.0); HEMOGLOBIN 13.6 g/dl (13.5-17.5); LYMPH # 1.3 10^3/uL (1.5-5.0); MEAN CORPUSCULAR HEMOGLOBIN 30.8 pg (27.0-33.0); MEAN CORPUSCULAR HGB CONC 31.7 g/dl (32.0-36.5); MEAN CORPUSCULAR VOLUME 97.3 fl (80.0-96.0); MONO # 0.6 10^3/uL (0.0-0.8); MONO % 11.4 % (2.0-8.0); NEUTROPHILS # 3.1 10^3/uL (1.5-8.5); PLATELET COUNT, AUTOMATED 160 10^3/uL (150-450); RED BLOOD COUNT 4.41 10^6/uL (4.30-6.10); WHITE BLOOD COUNT 5.4 10^3/uL (4.0-10.0)
[2023-04-29 15:26] LABS: ALBUMIN 2.8 G/DL (3.2-5.2); ALKALINE PHOSPHATASE 69 U/L (46-116); ALT/SGPT 21 U/L (7.0-40); AST/SGOT 24 U/L (<34); BILIRUBIN,TOTAL 0.6 MG/DL (0.3-1.2); BLOOD UREA NITROGEN 16 MG/DL (9-23); CALCIUM LEVEL 8.6 MG/DL (8.3-10.6); CARBON DIOXIDE LEVEL 29 MMOL/L (20-31); CHLORIDE LEVEL 106 MMOL/L (98-107); GLOMERULAR FILTRATION RATE > 60.0 (>49); GLUCOSE, FASTING 90 MG/DL (74-106); POTASSIUM SERUM 4.1 MMOL/L (3.5-5.1); SODIUM LEVEL 141 MMOL/L (136-145); TOTAL PROTEIN 7.1 G/DL (5.7-8.2)
== END ==
LOC: M PLALAB 09:01
PROVIDERS: ATTEND Surgery
DX: Z01.812 Encounter for preprocedural laboratory examination (principal); Z86.39 Personal history of other endocrine, nutritional and metabolic disease

== ENCOUNTER → 2023-06-09 | Outpatient (CLI) | payer MEDICARE, MEDICAID ==
[~2023-06-09] MED LIST changes: +EZET10TA58 PO; +MECL-209 PO; -MECL1TAB31 PO; -ZETI10TA16 PO
[2023-06-09 11:14] LABS: BASO % 0.6 % (0.0-1.0); EOS # 0.3 10^3/uL (0.0-0.5); EOS % 3.8 % (0.0-3.0); HEMATOCRIT 46.4 % (42.0-52.0); HEMOGLOBIN 15.1 g/dl (13.5-17.5); LYMPH # 1.8 10^3/uL (1.5-5.0); LYMPH % 24.8 % (24.0-44.0); MEAN CORPUSCULAR HEMOGLOBIN 30.9 pg (27.0-33.0); MEAN CORPUSCULAR HGB CONC 32.5 g/dl (32.0-36.5); MEAN CORPUSCULAR VOLUME 95.1 fl (80.0-96.0); MONO # 0.8 10^3/uL (0.0-0.8); NEUTROPHILS # 4.2 10^3/uL (1.5-8.5); NEUTROPHILS % 59.7 % (36.0-66.0); PLATELET COUNT, AUTOMATED 186 10^3/uL (150-450); RED BLOOD COUNT 4.88 10^6/uL (4.30-6.10); WHITE BLOOD COUNT 7.1 10^3/uL (4.0-10.0)
[2023-06-09 11:50] LABS: IRON (FE) 89 UG/DL (65-175); PERCENT SATURATION 35.3 % (19.7-50.0); TOTAL IRON BINDING CAPACITY 252 UG/DL (250-425)
[2023-06-09 11:51] LABS: ALKALINE PHOSPHATASE 93 U/L (46-116); ALT/SGPT 29 U/L (7.0-40); AST/SGOT 33 U/L (<34); BILIRUBIN,TOTAL 1.2 MG/DL (0.3-1.2); BLOOD UREA NITROGEN 15 MG/DL (9-23); CALCIUM LEVEL 8.7 MG/DL (8.3-10.6); CARBON DIOXIDE LEVEL 29 MMOL/L (20-31); CHLORIDE LEVEL 107 MMOL/L (98-107); GLOMERULAR FILTRATION RATE > 60.0 (>49); GLUCOSE, FASTING 80 MG/DL (74-106); PHOSPHORUS LEVEL 3.1 MG/DL (2.4-5.1); SODIUM LEVEL 140 MMOL/L (136-145); TOTAL PROTEIN 7.1 G/DL (5.7-8.2)
[2023-06-09 11:52] LABS: FERRITIN 293.1 NG/ML (10.5-307.3); TOTAL 25(OH) VITAMIN D 39.6 NG/ML (20.0-100.0)
[2023-06-09 11:53] LABS: VITAMIN B12 LEVEL 823 PG/ML (211-911)
== END ==
LOC: M PLALAB 07:31
PROVIDERS: ATTEND Surgery
DX: K91.2 Postsurgical malabsorption, not elsewhere classified (principal); Z98.84 Bariatric surgery status; E55.9 Vitamin D deficiency, unspecified

== ENCOUNTER → 2023-11-17 | Outpatient (CLI) | payer MEDICARE, MEDICAID ==
[2023-11-17 11:16] LABS: BASO # 0.1 10^3/uL (0.0-0.2); BASO % 0.8 % (0.0-1.0); EOS # 0.4 10^3/uL (0.0-0.5); EOS % 5.4 % (0.0-3.0); HEMATOCRIT 43.5 % (42.0-52.0); HEMOGLOBIN 14.6 g/dl (13.5-17.5); LYMPH % 31.4 % (24.0-44.0); MEAN CORPUSCULAR HEMOGLOBIN 32.6 pg (27.0-33.0); MEAN CORPUSCULAR HGB CONC 33.6 g/dl (32.0-36.5); MEAN CORPUSCULAR VOLUME 97.1 fl (80.0-96.0); MONO # 0.7 10^3/uL (0.0-0.8); MONO % 10.9 % (2.0-8.0); NEUTROPHILS # 3.3 10^3/uL (1.5-8.5); NEUTROPHILS % 51.2 % (36.0-66.0); PLATELET COUNT, AUTOMATED 196 10^3/uL (150-450); RED BLOOD COUNT 4.48 10^6/uL (4.30-6.10); WHITE BLOOD COUNT 6.4 10^3/uL (4.0-10.0)
[2023-11-17 11:28] LABS: HEMOGLOBIN A1c 4.8 % (4.0-6.0)
[2023-11-17 11:39] LABS: ALBUMIN 2.8 G/DL (3.2-5.2); ALKALINE PHOSPHATASE 96 U/L (46-116); ALT/SGPT 20 U/L (7.0-40); AST/SGOT 20 U/L (<34); BILIRUBIN,TOTAL 0.7 MG/DL (0.3-1.2); BLOOD UREA NITROGEN 20 MG/DL (9-23); CALCIUM LEVEL 8.5 MG/DL (8.3-10.6); CARBON DIOXIDE LEVEL 28 MMOL/L (20-31); CHLORIDE LEVEL 109 MMOL/L (98-107); CHOLESTEROL LEVEL 148 MG/DL (<200); CHOLESTEROL RISK RATIO 3.08 (<5); GLOMERULAR FILTRATION RATE > 60.0 (>49); GLUCOSE, FASTING 82 MG/DL (74-106); HDL CHOLESTEROL 47.9 MG/DL (>40); LDL CHOLESTEROL 89.1 MG/DL (<100); NON-HDL-C 100.1 MG/DL; POTASSIUM SERUM 4.1 MMOL/L (3.5-5.1); SODIUM LEVEL 142 MMOL/L (136-145); TOTAL PROTEIN 6.2 G/DL (5.7-8.2); TRIGLYCERIDES LEVEL 55 MG/DL (<150)
[2023-11-17 11:41] LABS: TOTAL 25(OH) VITAMIN D 29.4 NG/ML (20.0-100.0)
== END ==
LOC: M PLALAB 07:44
PROVIDERS: ATTEND Nurse Practitioner Family
DX: I10 Essential (primary) hypertension (principal); E78.00 Pure hypercholesterolemia, unspecified; R73.03 Prediabetes; Z12.5 Encounter for screening for malignant neoplasm of prostate; Z98.84 Bariatric surgery status

== ENCOUNTER → 2023-11-17 | Outpatient (CLI) | payer MEDICARE, MEDICAID ==
[2023-11-17 11:14] LABS: HEMATOCRIT 43.7 % (42.0-52.0)
[2023-11-17 11:16] LABS: HEMATOCRIT 43.8 % (42.0-52.0); HEMOGLOBIN 14.5 g/dl (13.5-17.5); MEAN CORPUSCULAR HEMOGLOBIN 31.9 pg (27.0-33.0); MEAN CORPUSCULAR HGB CONC 33.1 g/dl (32.0-36.5); MEAN CORPUSCULAR VOLUME 96.5 fl (80.0-96.0); PLATELET COUNT, AUTOMATED 201 10^3/uL (150-450); RED BLOOD COUNT 4.54 10^6/uL (4.30-6.10); WHITE BLOOD COUNT 6.6 10^3/uL (4.0-10.0)
[2023-11-17 11:27] LABS: HEMOGLOBIN A1c 4.7 % (4.0-6.0)
[2023-11-17 11:38] LABS: ALKALINE PHOSPHATASE 92 U/L (46-116); ALT/SGPT 19 U/L (7.0-40); AST/SGOT 25 U/L (<34); BILIRUBIN,TOTAL 0.7 MG/DL (0.3-1.2); BLOOD UREA NITROGEN 20 MG/DL (9-23); CALCIUM LEVEL 8.6 MG/DL (8.3-10.6); CARBON DIOXIDE LEVEL 28 MMOL/L (20-31); CHLORIDE LEVEL 108 MMOL/L (98-107); GLOMERULAR FILTRATION RATE > 60.0 (>49); GLUCOSE, FASTING 83 MG/DL (74-106); IRON (FE) 94 UG/DL (65-175); MAGNESIUM LEVEL 1.9 MG/DL (1.8-2.4); PHOSPHORUS LEVEL 3.8 MG/DL (2.4-5.1); POTASSIUM SERUM 3.9 MMOL/L (3.5-5.1); SODIUM LEVEL 140 MMOL/L (136-145); TOTAL IRON BINDING CAPACITY 294 UG/DL (250-425); TOTAL PROTEIN 6.4 G/DL (5.7-8.2)
[2023-11-17 11:42] LABS: FERRITIN 225.7 NG/ML (10.5-307.3); VITAMIN B12 LEVEL 756 PG/ML (211-911)
== END ==
LOC: M PLALAB 07:40
PROVIDERS: ATTEND Surgery
DX: K91.2 Postsurgical malabsorption, not elsewhere classified (principal); E55.9 Vitamin D deficiency, unspecified; Z98.84 Bariatric surgery status; Z86.39 Personal history of other endocrine, nutritional and metabolic disease; I10 Essential (primary) hypertension; E78.00 Pure hypercholesterolemia, unspecified; R73.03 Prediabetes; Z12.5 Encounter for screening for malignant neoplasm of prostate
CPT/HCPCS: 36415; 80053; 80061; 82306; 82607; 82728; 82747; 83036; 83550; 83735; 84100; 84425; 85025; 85027; G0103

== ENCOUNTER 2024-02-24 23:47 | Emergency (ER) | payer MEDICARE, MEDICAID ==
[~2024-02-24] VITALS: Ht 182.9 cm; Wt 136.0 kg
[2024-02-25 00:23] LABS: BASO # 0.1 10^3/uL (0.0-0.2); BASO % 0.7 % (0.0-1.0); EOS # 0.4 10^3/uL (0.0-0.5); EOS % 6.2 % (0.0-3.0); HEMATOCRIT 39.5 % (42.0-52.0); HEMOGLOBIN 13.7 g/dl (13.5-17.5); LYMPH # 2.1 10^3/uL (1.5-5.0); LYMPH % 30.9 % (24.0-44.0); MEAN CORPUSCULAR HEMOGLOBIN 32.7 pg (27.0-33.0); MEAN CORPUSCULAR HGB CONC 34.7 g/dl (32.0-36.5); MEAN CORPUSCULAR VOLUME 94.3 fl (80.0-96.0); MONO # 0.8 10^3/uL (0.0-0.8); MONO % 12.1 % (2.0-8.0); NEUTROPHILS # 3.4 10^3/uL (1.5-8.5); NEUTROPHILS % 49.7 % (36.0-66.0); PLATELET COUNT, AUTOMATED 170 10^3/uL (150-450); RED BLOOD COUNT 4.19 10^6/uL (4.30-6.10); WHITE BLOOD COUNT 6.9 10^3/uL (4.0-10.0)
[2024-02-25 00:35] LABS: INR 1.07; PROTHROMBIN TIME 13.6 SECONDS (12.5-14.5)
[2024-02-25 00:50] LABS: ALBUMIN 2.6 G/DL (3.2-5.2); ALKALINE PHOSPHATASE 98 U/L (46-116); ALT/SGPT 19 U/L (7.0-40); AST/SGOT 20 U/L (<34); BILIRUBIN,TOTAL 0.4 MG/DL (0.3-1.2); BLOOD UREA NITROGEN 21 MG/DL (9-23); CALCIUM LEVEL 8.2 MG/DL (8.3-10.6); CARBON DIOXIDE LEVEL 19 MMOL/L (20-31); CHLORIDE LEVEL 110 MMOL/L (98-107); CK-MB VALUE MASS 1.2 NG/ML (<3.6); CREATININE FOR GFR 0.65 MG/DL (0.70-1.30); GLOMERULAR FILTRATION RATE > 60.0 (>49); GLUCOSE, FASTING 85 MG/DL (74-106); POTASSIUM SERUM 3.3 MMOL/L (3.5-5.1); SODIUM LEVEL 140 MMOL/L (136-145); TOTAL PROTEIN 5.9 G/DL (5.7-8.2)
[2024-02-25 00:55] LABS: CPK CREATINE PHOSPHOKINASE 69 U/L (46-171); MB/CK RELATIVE INDEX 1.73 (< OR =4)
[2024-02-25 04:52] VITALS: BP 140/78; TEMP 98.8; O2SAT 98
== END 2024-02-25 04:55 | disposition home or self-care (01) ==
LOC: M ED 23:47
DX: E86.0 Dehydration (principal); I25.10 Atherosclerotic heart disease of native coronary artery without angina pectoris; I10 Essential (primary) hypertension; E78.5 Hyperlipidemia, unspecified; Z98.84 Bariatric surgery status; Z79.82 Long term (current) use of aspirin; Z79.899 Other long term (current) drug therapy

== ENCOUNTER → 2024-03-13 | Outpatient (CLI) | payer MEDICARE, MEDICAID | LOC: M SLEEP 20:00 | PROVIDERS: ATTEND Physician Assistant | DX: G47.33 Obstructive sleep apnea (adult) (pediatric) (principal) ==

== ENCOUNTER → 2024-05-19 | Outpatient (CLI) | payer MEDICAID, MEDICARE ==
[2024-05-19 10:27] LABS: HEMATOCRIT 42.9 % (42.0-52.0)
[2024-05-19 10:29] LABS: HEMATOCRIT 43.9 % (42.0-52.0); HEMOGLOBIN 14.6 g/dl (13.5-17.5); MEAN CORPUSCULAR HEMOGLOBIN 32.2 pg (27.0-33.0); MEAN CORPUSCULAR HGB CONC 33.3 g/dl (32.0-36.5); MEAN CORPUSCULAR VOLUME 96.9 fl (80.0-96.0); PLATELET COUNT, AUTOMATED 169 10^3/uL (150-450); RED BLOOD COUNT 4.53 10^6/uL (4.30-6.10); WHITE BLOOD COUNT 6.5 10^3/uL (4.0-10.0)
[2024-05-19 11:07] LABS: ALKALINE PHOSPHATASE 93 U/L (46-116); ALT/SGPT 16 U/L (7.0-40); AST/SGOT 19 U/L (<34); BILIRUBIN,TOTAL 0.8 MG/DL (0.3-1.2); BLOOD UREA NITROGEN 19 MG/DL (9-23); CARBON DIOXIDE LEVEL 28 MMOL/L (20-31); CHLORIDE LEVEL 106 MMOL/L (98-107); CREATININE FOR GFR 0.77 MG/DL (0.70-1.30); GLOMERULAR FILTRATION RATE > 60.0 (>49); GLUCOSE, FASTING 79 MG/DL (74-106); IRON (FE) 123 UG/DL (65-175); MAGNESIUM LEVEL 1.9 MG/DL (1.8-2.4); PHOSPHORUS LEVEL 3.3 MG/DL (2.4-5.1); POTASSIUM SERUM 4.1 MMOL/L (3.5-5.1); SODIUM LEVEL 139 MMOL/L (136-145); TOTAL PROTEIN 6.4 G/DL (5.7-8.2)
[2024-05-19 11:08] LABS: FERRITIN 205.7 NG/ML (10.5-307.3); VITAMIN B12 LEVEL 919 PG/ML (211-911)
[2024-05-19 11:09] LABS: TOTAL 25(OH) VITAMIN D 30.9 NG/ML (20.0-100.0)
== END ==
LOC: M PLALAB 07:34
PROVIDERS: ATTEND Physician Assistant Surgical
DX: K91.2 Postsurgical malabsorption, not elsewhere classified (principal); Z98.84 Bariatric surgery status; Z86.39 Personal history of other endocrine, nutritional and metabolic disease

== ENCOUNTER → 2024-05-19 | Outpatient (CLI) | payer MEDICAID, MEDICARE ==
[2024-05-19 10:36] LABS: BASO % 0.4 % (0.0-1.0); EOS # 0.4 10^3/uL (0.0-0.5); HEMATOCRIT 43.9 % (42.0-52.0); HEMOGLOBIN 14.6 g/dl (13.5-17.5); LYMPH # 1.9 10^3/uL (1.5-5.0); LYMPH % 28.6 % (24.0-44.0); MEAN CORPUSCULAR HEMOGLOBIN 32.2 pg (27.0-33.0); MEAN CORPUSCULAR HGB CONC 33.3 g/dl (32.0-36.5); MEAN CORPUSCULAR VOLUME 96.7 fl (80.0-96.0); MONO # 0.7 10^3/uL (0.0-0.8); MONO % 10.5 % (2.0-8.0); NEUTROPHILS # 3.6 10^3/uL (1.5-8.5); NEUTROPHILS % 54.2 % (36.0-66.0); PLATELET COUNT, AUTOMATED 167 10^3/uL (150-450); RED BLOOD COUNT 4.54 10^6/uL (4.30-6.10); WHITE BLOOD COUNT 6.7 10^3/uL (4.0-10.0)
[2024-05-19 10:54] LABS: HEMOGLOBIN A1c 4.8 % (4.0-6.0)
[2024-05-19 11:05] LABS: PSA SCREENING 2.45 NG/ML (< 4.00)
[2024-05-19 11:09] LABS: TOTAL 25(OH) VITAMIN D 27.8 NG/ML (20.0-100.0)
[2024-05-19 11:35] LABS: ALBUMIN 2.9 G/DL (3.2-5.2); ALKALINE PHOSPHATASE 92 U/L (46-116); ALT/SGPT 17 U/L (7.0-40); AST/SGOT 20 U/L (<34); BILIRUBIN,TOTAL 0.8 MG/DL (0.3-1.2); BLOOD UREA NITROGEN 19 MG/DL (9-23); CALCIUM LEVEL 9.1 MG/DL (8.3-10.6); CARBON DIOXIDE LEVEL 29 MMOL/L (20-31); CHLORIDE LEVEL 109 MMOL/L (98-107); CHOLESTEROL LEVEL 168 MG/DL (<200); CHOLESTEROL RISK RATIO 3.04 (<5); CREATININE FOR GFR 0.75 MG/DL (0.70-1.30); GLOMERULAR FILTRATION RATE > 60.0 (>49); GLUCOSE, FASTING 80 MG/DL (74-106); HDL CHOLESTEROL 55.2 MG/DL (>40); LDL CHOLESTEROL 100.6 MG/DL (<100); NON-HDL-C 112.8 MG/DL; POTASSIUM SERUM 4.1 MMOL/L (3.5-5.1); SODIUM LEVEL 140 MMOL/L (136-145); TOTAL PROTEIN 6.4 G/DL (5.7-8.2); TRIGLYCERIDES LEVEL 61 MG/DL (<150)
== END ==
LOC: M PLALAB 07:37
PROVIDERS: ATTEND Nurse Practitioner Family
DX: E55.9 Vitamin D deficiency, unspecified (principal); I10 Essential (primary) hypertension; E78.00 Pure hypercholesterolemia, unspecified; R73.03 Prediabetes; Z12.5 Encounter for screening for malignant neoplasm of prostate
CPT/HCPCS: 36415; 80053; 80061; 82306; 83036; 85025; G0103

== ENCOUNTER 2024-11-23 00:23 | Observation (INO) | payer MEDICARE ==
[~2024-11-23] VITALS: Ht 182.9 cm; Wt 129.9 kg
[2024-11-23 00:48] LABS: BASO # 0.1 10^3/uL (0.0-0.2); BASO % 0.9 % (0.0-1.0); EOS # 0.4 10^3/uL (0.0-0.5); EOS % 5.7 % (0.0-3.0); HEMATOCRIT 39.7 % (42.0-52.0); HEMOGLOBIN 13.6 g/dl (13.5-17.5); LYMPH # 1.6 10^3/uL (1.5-5.0); LYMPH % 23.7 % (24.0-44.0); MEAN CORPUSCULAR HEMOGLOBIN 32.2 pg (27.0-33.0); MEAN CORPUSCULAR HGB CONC 34.3 g/dl (32.0-36.5); MEAN CORPUSCULAR VOLUME 94.1 fl (80.0-96.0); MONO # 0.7 10^3/uL (0.0-0.8); MONO % 11.2 % (2.0-8.0); NEUTROPHILS # 3.9 10^3/uL (1.5-8.5); NEUTROPHILS % 58.2 % (36.0-66.0); PLATELET COUNT, AUTOMATED 152 10^3/uL (150-450); RED BLOOD COUNT 4.22 10^6/uL (4.30-6.10); WHITE BLOOD COUNT 6.6 10^3/uL (4.0-10.0)
[2024-11-23 01:20] LABS: BLOOD UREA NITROGEN 22 MG/DL (9-23); CALCIUM LEVEL 8.3 MG/DL (8.3-10.6); CARBON DIOXIDE LEVEL 22 MMOL/L (20-31); CHLORIDE LEVEL 108 MMOL/L (98-107); CREATININE FOR GFR 0.61 MG/DL (0.70-1.30); GLOMERULAR FILTRATION RATE > 60.0 (>49); GLUCOSE, FASTING 84 MG/DL (74-106); MAGNESIUM LEVEL 1.7 MG/DL (1.8-2.4); POTASSIUM SERUM 3.3 MMOL/L (3.5-5.1); SODIUM LEVEL 141 MMOL/L (136-145)
[2024-11-23 01:26] LABS: CPK CREATINE PHOSPHOKINASE 99 U/L (46-171); MB/CK RELATIVE INDEX 1.01 (< OR =4)
[2024-11-23] MEDS: MAGNESIUM OXIDE 400MG TAB (MAG-OX) PO ONE (02:08)
[2024-11-23] MEDS: POTASSIUM CHLORIDE 10MEQ SR TABLET PO ONE (02:08)
[2024-11-23] MEDS: NS (Normal Saline) 0.9% 1,000 ML IV ONE (02:08)
[2024-11-23 04:29] LABS: KETONE, URINE AUTO RFX TRACE mg/dL (NEGATIVE); LEUKOCYTE ESTERASE UR AUTO RFX NEGATIVE (NEGATIVE); MUCUS, URINE RFX SMALL (NEGATIVE); NITRITE, URINE AUTO RFX NEGATIVE (NEGATIVE); RBC, URINE AUTO RFX 0 /HPF (0-3); SQUAM EPITHELIAL CELL UR AURFX 1 /HPF (0-6); WBC, URINE AUTO RFX 1 /HPF (0-3)
[2024-11-23] MEDS ORDERED: MOM 30ML SUSPENSION UDC PO PRN (05:10)
[2024-11-23] MEDS ORDERED: ACETAMINOPHEN 325 MG TAB PO PRN (05:10)
[2024-11-23] MEDS ORDERED: MAALOX 30 ML SUSP *UDC PO PRN (05:10)
[2024-11-23 06:43] LABS: INR 0.97; PROTHROMBIN TIME 13.2 SECONDS (12.5-14.5)
[2024-11-23 07:05] LABS: ALBUMIN 2.9 G/DL (3.2-5.2); ALKALINE PHOSPHATASE 79 U/L (40-129); ALT/SGPT 19 U/L (7.0-40); AST/SGOT 21 U/L (<34); BILIRUBIN,DIRECT 0.2 MG/DL (<0.4); BILIRUBIN,TOTAL 0.7 MG/DL (0.3-1.2); C REACTIVE PROTEIN QUANTITATIV < 0.50 MG/DL (<1.0); TOTAL PROTEIN 6.2 G/DL (5.7-8.2)
[2024-11-23 07:21] LABS: PROCALCITONIN 0.08 ng/ml
[2024-11-23] MEDS ORDERED: HOME MED LIST COMPLETE! XX SCH (08:00)
[2024-11-23] MEDS: DOCUSATE SODIUM 100MG CAPSULE PO SCH (08:15)
[2024-11-23] MEDS: ENOXAPARIN 40MG/0.4ML SYRINGE (J1650 PER 10MG) SC SCH (08:15)
[2024-11-23 08:42] LABS: THYROID STIMULATING HORMONE 1.086 uIU/ML (0.55-4.78)
[2024-11-23 08:43] LABS: FREE T4 0.92 NG/DL (0.89-1.76)
[2024-11-23] MEDS ORDERED: ISOVUE-370 76% 100ML VIAL As Ordered ONE (13:40)
[2024-11-23 14:51] VITALS: BP 129/62; TEMP 98.4; O2SAT 98
[2024-11-23 20:27] VITALS: BP 110/53; TEMP 97.6; O2SAT 98
[2024-11-23] MEDS: ATORVASTATIN 20 MG TAB PO SCH (22:00)
[2024-11-23 23:47] VITALS: BP 118/59; TEMP 98.4; O2SAT 98
[2024-11-24] VITALS: BP 118/59; TEMP 98.4; O2SAT 98
[2024-11-24 04:34] VITALS: BP 105/54; TEMP 98.1; O2SAT 97
[2024-11-24 06:10] LABS: HEMATOCRIT 39.7 % (42.0-52.0); HEMOGLOBIN 13.7 g/dl (13.5-17.5); MEAN CORPUSCULAR HEMOGLOBIN 32.5 pg (27.0-33.0); MEAN CORPUSCULAR HGB CONC 34.5 g/dl (32.0-36.5); MEAN CORPUSCULAR VOLUME 94.3 fl (80.0-96.0); PLATELET COUNT, AUTOMATED 153 10^3/uL (150-450); RED BLOOD COUNT 4.21 10^6/uL (4.30-6.10); WHITE BLOOD COUNT 6.1 10^3/uL (4.0-10.0)
[2024-11-24 06:33] LABS: ALBUMIN 2.7 G/DL (3.2-5.2); ALKALINE PHOSPHATASE 77 U/L (40-129); ALT/SGPT 15 U/L (7.0-40); AST/SGOT 16 U/L (<34); BILIRUBIN,TOTAL 0.9 MG/DL (0.3-1.2); BLOOD UREA NITROGEN 16 MG/DL (9-23); CALCIUM LEVEL 8.5 MG/DL (8.3-10.6); CARBON DIOXIDE LEVEL 24 MMOL/L (20-31); CHLORIDE LEVEL 109 MMOL/L (98-107); CREATININE FOR GFR 0.73 MG/DL (0.70-1.30); GLOMERULAR FILTRATION RATE > 60.0 (>49); GLUCOSE, FASTING 81 MG/DL (74-106); MAGNESIUM LEVEL 1.8 MG/DL (1.8-2.4); POTASSIUM SERUM 3.9 MMOL/L (3.5-5.1); SODIUM LEVEL 145 MMOL/L (136-145); TOTAL PROTEIN 5.9 G/DL (5.7-8.2)
[2024-11-24 07:35] VITALS: BP 121/58; TEMP 97.9; O2SAT 98
[2024-11-24] MEDS: ASPIRIN 81MG CHEW TABLET PO SCH (08:57)
[2024-11-24 12:17] VITALS: BP 113/60; TEMP 98.1; O2SAT 99
[2024-11-24] MEDS ORDERED: ASPI81CH8 PO (12:25)
[2024-11-24] MEDS ORDERED: ATOR1TAB21 PO (12:25)
[2024-11-24] MEDS ORDERED: CARV3.12 PO (12:25)
== END 2024-11-24 14:35 | disposition home or self-care (01) ==
LOC: M ED 00:23 → M ED INP 00:24 → M PCU 14:22
PROVIDERS: ADMIT Student in an Organized Health Care Education/Training Program; ATTEND Student in an Organized Health Care Education/Training Program
DX: R51.9 Headache, unspecified (principal); R42 Dizziness and giddiness; R61 Generalized hyperhidrosis; R00.1 Bradycardia, unspecified; I48.91 Unspecified atrial fibrillation; I25.10 Atherosclerotic heart disease of native coronary artery without angina pectoris; I25.2 Old myocardial infarction; G47.33 Obstructive sleep apnea (adult) (pediatric); I10 Essential (primary) hypertension; E78.5 Hyperlipidemia, unspecified; Z98.84 Bariatric surgery status; R68.0 Hypothermia, not associated with low environmental temperature; Z79.82 Long term (current) use of aspirin; Z79.899 Other long term (current) drug therapy
CPT/HCPCS: 36415; 70450; 71045; 74177; 80048; 80053; 80076; 81001; 82533; 82550; 82553; 83605; 83735; 84145; 84439; 84443; 84484; 85025; 85027; 85610; 85652; 86140; 87040; 87486; 87507; 87581; 87633; 87798; 93005; 93306; 94660; 96372; 96374; 97116; 97161; 99285; G0378; J1650; Q9967

== ENCOUNTER → 2024-12-20 | Outpatient (CLI) | payer MEDICARE ==
[~2024-12-20] MED LIST changes: +ASPI81CH8 PO; +ATOR1TAB21 PO; +CARV3.12 PO
[2024-12-20 11:42] LABS: BASO % 0.7 % (0.0-1.0); EOS # 0.4 10^3/uL (0.0-0.5); EOS % 7.6 % (0.0-3.0); HEMATOCRIT 41.8 % (42.0-52.0); HEMOGLOBIN 13.9 g/dl (13.5-17.5); LYMPH # 1.5 10^3/uL (1.5-5.0); LYMPH % 28.3 % (24.0-44.0); MEAN CORPUSCULAR HEMOGLOBIN 31.9 pg (27.0-33.0); MEAN CORPUSCULAR HGB CONC 33.3 g/dl (32.0-36.5); MEAN CORPUSCULAR VOLUME 95.9 fl (80.0-96.0); MONO # 0.6 10^3/uL (0.0-0.8); MONO % 10.6 % (2.0-8.0); NEUTROPHILS # 2.8 10^3/uL (1.5-8.5); NEUTROPHILS % 52.6 % (36.0-66.0); PLATELET COUNT, AUTOMATED 175 10^3/uL (150-450); RED BLOOD COUNT 4.36 10^6/uL (4.30-6.10); WHITE BLOOD COUNT 5.4 10^3/uL (4.0-10.0)
[2024-12-20 11:57] LABS: HEMOGLOBIN A1c 4.8 % (4.0-6.0)
[2024-12-20 12:10] LABS: PSA SCREENING 3.06 NG/ML (< 4.00)
[2024-12-20 12:11] LABS: IRON (FE) 98 UG/DL (65-175)
[2024-12-20 12:12] LABS: CHOLESTEROL LEVEL 183 MG/DL (<200); CHOLESTEROL RISK RATIO 2.78 (<5); HDL CHOLESTEROL 65.6 MG/DL (>40); LDL CHOLESTEROL 105.2 MG/DL (<100); NON-HDL-C 117.4 MG/DL; TOTAL IRON BINDING CAPACITY 251 UG/DL (250-425); TRIGLYCERIDES LEVEL 61 MG/DL (<150)
[2024-12-20 12:14] LABS: TOTAL 25(OH) VITAMIN D 28.1 NG/ML (20.0-100.0)
[2024-12-20 15:36] LABS: FERRITIN 165.7 NG/ML (10.5-307.3)
[2024-12-20 15:53] LABS: HEPATITIS B SURFACE ANTIGEN NEGATIVE (NEGATIVE)
[2024-12-20 16:14] LABS: HEPATITIS B CORE ANTIBODY IGM NEGATIVE (NEGATIVE); HEPATITIS C VIRUS ABY INDEX 0.06 INDEX (<0.8)
== END ==
LOC: M PLALAB 07:40
PROVIDERS: ATTEND Nurse Practitioner Family
DX: I10 Essential (primary) hypertension (principal); K74.69 Other cirrhosis of liver; E78.00 Pure hypercholesterolemia, unspecified; R73.03 Prediabetes; E55.9 Vitamin D deficiency, unspecified; Z12.5 Encounter for screening for malignant neoplasm of prostate
CPT/HCPCS: 36415; 80061; 80074; 82103; 82105; 82306; 82728; 82977; 83036; 83550; 84466; 85025; 86015; 86038; 86255; G0103

== ENCOUNTER → 2025-06-12 | Outpatient (CLI) | payer MEDICARE ==
[~2025-06-12] MED LIST changes: -ASPI-655 PO; +ASPI-737 PO; -PRED50TA PO; +PRED50TA57 PO
[2025-06-12 12:24] LABS: BASO # 0.0 10^3/uL (0.0-0.2); BASO % 0.7 % (0.0-1.0); EOS # 0.4 10^3/uL (0.0-0.5); EOS % 6.3 % (0.0-3.0); LYMPH # 1.7 10^3/uL (1.5-5.0); LYMPH % 30.7 % (24.0-44.0); MONO # 0.7 10^3/uL (0.0-0.8); MONO % 11.8 % (2.0-8.0); NEUTROPHILS # 2.9 10^3/uL (1.5-8.5); NEUTROPHILS % 50.3 % (36.0-66.0); PLATELET COUNT, AUTOMATED 180 10^3/uL (150-450)
[2025-06-12 15:34] LABS: ALT/SGPT 20 U/L (7.0-40); AST/SGOT 28 U/L (<34); CALCIUM LEVEL 8.6 MG/DL (8.3-10.6); CARBON DIOXIDE LEVEL 29 MMOL/L (20-31); CHLORIDE LEVEL 107 MMOL/L (98-107); CHOLESTEROL LEVEL 134 MG/DL (<200); CHOLESTEROL RISK RATIO 1.94 (<5); CREATININE FOR GFR 0.73 MG/DL (0.70-1.30); GLOMERULAR FILTRATION RATE > 90.0 (>49); IRON (FE) 82 UG/DL (65-175); LDL CHOLESTEROL 57.0 MG/DL (<100); NON-HDL-C 65.2 MG/DL; POTASSIUM SERUM 3.9 MMOL/L (3.5-5.1); SODIUM LEVEL 145 MMOL/L (136-145); TRIGLYCERIDES LEVEL 41 MG/DL (<150)
== END ==
LOC: M PLALAB 07:29
PROVIDERS: ATTEND Nurse Practitioner Family
DX: I10 Essential (primary) hypertension (principal); K74.69 Other cirrhosis of liver; E78.00 Pure hypercholesterolemia, unspecified